=== PATIENT | female | born 1950 | race Caucasian/White ===

== ENCOUNTER 2023-11-07 10:31 | Outpatient (OUT) | payer MEDICARE, SELFPAY ==
--- NOTE | 2023-11-07 10:41 | VEIN_ITS ---
Patient Name: KRISTY MORELOS MR#: [id number] : 1950 Exam Date: 11/07/2023 Ordering Doctor: DR AVIVA RUSHING M.D. RADIOLOGY REPORT PROCEDURE: [facility] - OFFICE VISIT INITIAL COMPARISON: None. PROGRESS NOTES: [age] year old female who presents with a 20 year history of discolored dilated veins with recent muscle cramping, dilated bulging veins, aching. The patient's leg symptoms are symmetric bilaterally. There has been a progression of symptoms recently. This increases with prolonged leg dependency. The patient describes an improvement with rest and elevation. The patient denies any signs and symptoms to suggest arterial ischemia. The patient describes a family history of varicose veins in mother, sister, and brother. The patient has drinking and smoking history of : Occasional alcohol consumption; no tobacco use. Patient has a past medical history significant for peripheral neuropathy. The patient denies a history of deep venous thrombus or pulmonary embolus. See separate history and physical for medication list. No prior treatment for varicose or spider veins. Prior treatment included use of compression stockings. After review of nurse notes, history and physical exam I discussed at length the pathophysiology of venous hypertension and possible treatments, therapies and strategies available. We discussed at length the importance of elevating the lower extremities above the level of the heart, increased physical activity and compression stocking use. Ultrasound venous reflux study performed today was discussed at length with the patient. The report demonstrates mildly dilated great saphenous veins bilaterally with significant reflux. Borderline dilated right anterior accessory vein with mild reflux. Incompetent branch saphenous varicosities bilaterally predominantly rising from the great saphenous veins.. PHYSICAL EXAM: The right leg demonstrates a few varicosities, extensive reticular and spider veins, no ulceration, no edema, no skin discoloration. The left leg demonstrates a few varicosities, extensive reticular and spider veins, no ulceration, no edema, no skin discoloration. Both thighs, legs and feet were symmetrically warm to the touch. Good posterior tibial and dorsalis pedis pulses were present bilaterally. VEIN/[facility] EST Comprehensive IMPRESSION: 1. Bilateral lower extremity venous insufficiency 2. Bilateral lower extremity varicose veins 3. No significant lower extremity subcutaneous edema 4. No flow significant arterial disease 5. CEAP: C2, EC, , [place] PLAN: 1. Continued use of compression stockings 2. Elevated legs and increased physical activity symptomatic relief 3. Intravenous laser ablation of right great saphenous vein and left great saphenous vein. Followed by re-evaluation of right anterior accessory saphenous vein for possible treatment. 4. Bilateral lower extremity microfoam chemical ablation of remaining incompetent branch saphenous varicosities. 5. Bilateral lower extremity sclerotherapy for extensive reticular and spider veins. Nurse notes, history and physical were reviewed and confirmed, see attached forms. The nurse was present throughout the physical exam and consultation Dictated by: Roel Montez M.D. on 11/07/2023 at 12:11 Approved by: Roel Montez M.D. on 11/07/2023 at 12:17
--- NOTE | 2023-11-07 10:41 | VEIN_ITS ---
Patient Name: KRISTY MORELOS MR#: [id number] : 1950 Exam Date: 11/07/2023 Ordering Doctor: DR AVIVA RUSHING M.D. RADIOLOGY REPORT PROCEDURE: VC EXT VENOUS REFLUX [facility]IALU[facility] LMTD COMPARISON: None. INDICATIONS: I83.813 Pain due to varicose veins of bilateral legs TECHNIQUE: Duplex imaging of the lower extremity to assess the deep and superficial venous system for the presence of deep or superficial venous incompetence and to document the location and severity of disease. The study includes evaluation of the great saphenous vein (GSV), anterior accessory saphenous vein (AASV) and small saphenous vein (SSV). Patient scanned in reverse Trendelenburg and standing. 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 Compressibility: Non compressible segment of prox SSV. Flow: Severe deep venous reflux. Preforator: Mid medial calf 3.2 mm with 0.8s reflux. Prox medial calf 3.6 mm with 2.5s reflux. Tech Note: Incompetent varicose vein distal medial thigh off of GSV measures 7.6 mm with 4.8s reflux. Varicose vein proximal medial lower leg measures 4.9 mm with 2.6s reflux. LEFT LOWER EXTREMITY: Saphenofemoral Junction Reflux: Yes 9.0 mm 1.4 sec GSV: Diam (mm) Reflux/Time (sec) Proximal Thigh 6.1 Yes 1.0 Mid Thigh 4.5 Yes 0.3 Distal Thigh 3.8 Yes 1.9 Prox Calf 2.1 Yes 4.6 Mid Calf 2.7 Yes 2.0 Saphenopopliteal Junction Relux: 5.6 mm Yes 0.6 SSV: Proximal Calf 4.2 Yes 0.7 Mid Calf 2.6 Yes 2.5 AASV: Proximal Thigh 4.3 Yes 1.2 Mid Thigh 2.3 Yes 0.3 Distal Thigh Thrombi: Chronic thrombus noted mid to distal SSV. Compressibility: Non compressible segment in SSV. Flow: Mild deep venous reflux. Extractions Technician: Mid medial lower leg 5.3 mm with 1.0s reflux. Proximal medial lower leg measures 4.0 mm with 1.7s reflux. Tech Note: Incompetent varicose vein distal medial thigh measures 4.8 mm with 1.2s reflux. Varicose vein mid medial lower leg 4.0 mm with 1.5s reflux. CONCLUSION: 1. Abnormally dilated and markedly incompetent great saphenous veins bilaterally. 2. Borderline dilated and mildly incompetent right anterior accessory saphenous vein. 3. Bilateral dilated incompetent branch saphenous varicosities predominately rising from the great saphenous veins. Dictated by: Roel Montez M.D. on 11/07/2023 at 11:51 Approved by: Roel Montez M.D. on 11/07/2023 at 12:11
== END 2023-11-07 10:32 | disposition home or self-care (01) ==
PROVIDERS: PCP Radiology Diagnostic Radiology; Visit Provider Radiology Diagnostic Radiology
DX: I83.813 Varicose veins of bilateral lower extremities with pain (principal)
CPT/HCPCS: 93970; G0463

== ENCOUNTER 2023-11-27 11:29 | Outpatient (OUT) | payer MEDICARE, SELFPAY ==
--- NOTE | 2023-11-27 | MM_ITS ---
Patient Name: KRISTY MORELOS MR#: [id number] : 1950 Exam Date: 11/27/2023 Ordering Doctor: DR DAVID ELDRIDGE RADIOLOGY REPORT PROCEDURE: MM TOMOSYNTHESIS SCREENING BI COMPARISON: MG MAMM [facility] SCRN W CAD DIG, 08/31/2015. MG MAMM [facility] SCRN W CAD DIG, 02/27/2013. MAMMO MAR[facility]ISA SCREEN, 02/21/2010. MG MAMM SCREEN [facility] W CAD, 02/14/2018. INDICATIONS: Screening mammogram for malignant neoplasm of breast, Z12.31 Calculator Name NCI Breast Cancer Risk Assessment Tool 5 Year Breast Cancer Risk 1.80% Lifetime Breast Cancer Risk 3.90% Personal Breast Cancer No Personal Ovarian Cancer No Treatments None Family Cancers Brother with prostate cancer at age 73. LOCATION: [facility] BREAST COMPOSITION: The breasts are heterogeneously dense,which may obscure small masses. FINDINGS: DIAGNOSTIC CATEGORY 0--INCOMPLETE: NEED ADDITIONAL IMAGING EVALUATION. RIGHT BREAST: No significant suspicious finding. Scattered benign-appearing calcifications are present. No significant change has occurred. LEFT BREAST: Within the lower-outer quadrant posterior breast is a suspected 1.0 cm mass and a suspected adjacent 6 mm mass. Spot magnification views and ultrasound evaluation recommended. RECOMMENDATIONS: ADDITIONAL MAMMOGRAPHIC VIEWS REQUIRED: LEFT BREAST - LEFT CRANIOCAUDAL SPOT MAGNIFICATION VIEW - LEFT OBLIQUE SPOT MAGNIFICATION VIEW - ULTRASOUND: LEFT BREAST PLEASE NOTE: A NORMAL MAMMOGRAM DOES NOT EXCLUDE THE POSSIBILITY OF BREAST CANCER. A CLINICALLY SUSPICIOUS PALPABLE LUMP SHOULD BE BIOPSIED. Dictated by: Roel Montez M.D. on 12/04/2023 at 11:06 Approved by: Roel Montez M.D. on 12/04/2023 at 11:13
--- OUTSIDE RECORDS SUMMARY | 2023-11-27 11:46 | XMS_ITS | CCD ---
Author Organization [facility] Inform ion Partnership [facility] Care Team Providers Care Ring Striker Name Role Phone Park Carias Unavailable Unavailable Primary Care Provider GRACIE Damian Attending Unavailable JOHN QUIROZ Attending Unavailable Allergies Allergy Classification Reported Allergen(s) Allergy Type Date of Onset Reaction(s) Facility (3 sources) Naproxen Drug Allergy 01-16-2012 [facility] Other Medications Current Medications Medication Drug Class(es) Dates Sig (Normalized) Sig (Original) amoxicillin 875 mg / clavulanate 125 mg oral tablet (1 source) Penicillin-class Antibacterial Start: 05-09-2023 take 1 tablet by mouth every twelve hours Amoxicillin-Pot Clavulanate 875-125 MG 1 tablet Orally every 12 hrs for 10 day(s) May, Active bimatoprost 0.1 mg/ml ophthalmic solution (3 sources) Prostaglandin Analog Lumigan 0.0 1 % ophthalmic solution 1 (one) time each day at the same time 0 Active take 1 drop(s) into the eye(s) once daily in the evening Lumigan 0.01 % 1 drop into affected eye in the evening Ophthalmic Once a day Active fluticasone propionate 0.05 mg/actuat metered dose nasal spray (1 source) Corticosteroid Start: 05-09-2023 take 2 spray(s) nasal route once daily Fluticasone Propionate 50 MCG/ACT 2 sprays Nasally Once a day for 14 day(s) May, Active methylPREDNISolone 4 mg oral tablet (1 source) Corticosteroid Start: 05-09-2023 Medrol 4 MG as directed Orally As Directed for 6 days May, Active 12 hr timolol 5 mg/ml ophthalmic solution (3 sources) beta-Adrenergic Mary timolol (Timoptic) 0.5 % ophthalmic solution timolol maleate 0.5 % eye drops 0 Active take 1 drop(s) into the eye(s) once daily Timolol Maleate 0.25 % 1 drop into affec ameya eye Ophthalmic Once a day Active Completed/Discontinued Medications Medication Drug Class(es) Dates Sig (Normalized) Sig (Original) Cetirizine (1 source) Histamine-1 Receptor Antagonist ZyrTEC Allergy Not-Taking pantoprazole (1 source) Proton Pump Inhibitor Pantoprazo le Sodium Not-Taking Triamcinolone (1 source) Corticosteroid Triamcinolone Ac etonide Not-Taking Problems Problem Classification Problem Date Documented Da te Episodic/Chronic Other and unspecified benign neoplasm (1 source) Hemangioma; Translations: [Hemangioma of unspecified site] Episodic Other and unspecified benign neoplasm (2 sources) Melanocytic nevus of trunk; Translations: [Melanocytic nevi of trunk] 07-13-2023 Episodic Other gastrointestinal disorders (1 source) Ascites; Translations: [Other ascites] Episodic Other liver diseases (1 source) Liver cyst; Translations: [Other specified diseases of liver] Chronic Other lower respiratory disease (1 source) Cough; Translations: [Cough] Episodic Other screening for suspected conditions (not mental disorders or infectious disease) (1 source) Computed tomography result abnormal; Translations: [Abnormal CT scan] Chronic Other skin disorders (2 sources) Seborrheic keratosis; Translations: [Other seborrheic keratosis] 07-13-2023 Episodic Other skin disorders (2 sources) Actinic keratosis; Translations: [Actinic keratosis] 07-13-2023 Episodic Other skin disorders (2 sources) Inflamed seborrheic keratosis; Translations: [Inflamed seborrheic keratosis] 07-13-2023 Episodic Other upper respiratory infections (1 source) Acute sinusitis, unspecified Episodic Results Test Name Value Interpretation Reference Range Facility No Panel Informationon 07-13 [facility] ALL[facility] HEALTHon 11-21-2019 ALLIED HEALTH HNO ID: [id number] Author: Ema Ferrer (Chaplain) Service: Healing Service Author Type: Type: Allied Health Filed: 11/21/2019 7:57 AM Note Text: SPIRITUAL CARE Spiritual Care Visit Record Name: Betina Morelos Date: November 21, 2019 Type of Visit: Preoperative Prayer/Visit Visit was with (pt, dtr). Ministry Provided During Visit: Spiritual Presence / Support Notes: I introduced self. Pt is [employer]ology. I gave her a blessing. Pt thanked for visit. Referrals: No referral made Will See: As Needed Only Follow-up Notes: Informed patient and family of Fabric Worker Leader availability Fabric Worker Leader Signature: Ema Ferrer Fabric Worker Leader Student To contact the Spiritual Care Department: Please call [phone] or Page the On-Call Fabric Worker Leader at pager [phone] Thank you for the opportunity to be of service. This is an electronically created document. IF PRINTED, PLEASE DO NOT REMOVE FROM THE CHART OR MODIFY PRINTED COPY. [facility] ANES Nerissa 11-21-2019 ANES POST HNO ID: [id number] Author: Aimee Quintero I Service: Anesthesiology Author Type: Anesthesiologist Type: Anesthesia PostOp Filed: 11/21/2019 12:19 PM Note Text: POST ANESTHESIA EVALUATION NOTE SERVICE DATE: 11/21/2019 SERVICE TIME: 12:19 PM : 1950 Vitals: 11/21/19 1045 11/21/19 1100 11/21/19 1115 11/21/19 1130 BP: 124/58 132/65 128/66 127/67 Pulse: 62 65 61 70 Resp: 17 16 17 16 Temp: TempSrc: SpO2: 94% 94% 95% 97% Validated Vital Signs: Yes No apparent anesthetic complications. The patient is appropriately hydrated with stable respiratory and cardiovascular status. Patient has safe and adequate airway control. The patient has appropriate pain relief and no significant post operative nausea or vomiting. The patient has achieved baseline mental status. Further assessment by Anesthesia Service: None Other Remarks: SIGNATURE: Aimee Quintero MD PATIENT NAME: Betina Morelos DATE: November 21, 2019 TIME: 12:19 PM PAGER/CONTACT #: [facility]IONAL ANESTHESIOLOGY POST ANESTHESIA NOTE PATIENT NAME: Betina Morelos Vitals: 11/21/19 1045 11/21/19 1100 11/21/19 1115 11/21/19 1130 BP: 124/58 132/65 128/66 127/67 Pulse: 62 65 61 70 Resp: 17 16 17 16 Temp: TempSrc: SpO2: 94% 94% 95% 97% No apparent anesthetic complications. The patient is appropriately hydrated with stable respiratory and cardiovascular status. Patient has safe and adequate airway control. The patient has appropriate pain relief and no significant post operative nausea or vomiting. The patient has achieved baseline mental status. Further assessment by Anesthesia Service: None Other remarks: None SIGNATURE: Aimee Quintero MD DATE: November 21, 2019 TIME: 12:19 PM [facility] ANES PREOPon 11-21-2019 ANES PREOP HNO ID: [id number] Author: Aimee Quintero I Service: Anesthesiology Author Type: Anesthesiologist Type: Anesthesia PreOp Filed: 11/21/2019 7:18 AM Note Text: REGIONAL ANESTHESIOLOGY DAY OF SURGERY NOTE PATIENT NAME: Betina Morelos Procedure(s) (LRB): MARSUPIALIZATION OF CYST / ABSCESS OF LIVER (N/A) Surgeon(s): Allison Oro Vitals: 11/21/19 0657 BP: 181/80 Pulse: 69 Resp: 18 Temp: 36.7 ?C (98.1 ?F) TempSrc: Oral SpO2: 97% ACTIVE PROBLEM LIST Actinic Keratosis Other Seborrheic Keratosis Other and Unspecified Malignant Neoplasm of Skin of Other and Unspecified Parts of Face SEBORRHEIC KERATOSIS INFLAMED x8 Dyschromia Acute Dermatitis due to Solar Radiation x2 Acne Verruca Personal History of Other Malignant Neoplasm of Skin Other Chronic Dermatitis Due to Solar Radiation Skin Exam for Malignant Neoplasm Seborrheic Keratosis Other Plastic Surgery for Unacceptable Cosmetic Appearance Neoplasm of Uncertain Behavior of Skin Hemangioma of Skin Liver Cyst Hyperlipidemia Chronic Cough Glaucoma PAST MEDICAL HISTORY Diagnosis Date - Chronic cough - Glaucoma - Hyperlipidemia - Liver cyst - Nasal polyp - Other malignant neoplasm of other specified sites of 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 Current Outpatient Medications on File Prior to Encounter Medication Sig - vit A-vit C-vit I-dpbc-rtozyt (EYE VITAMIN AND MINERALS) 7,160-113-100 wxxs-jj-dmuh tab Eye Vitamin and Minerals - timolol maleate (TIMOPTIC) 0.5 % ophthalmic solution timolol maleate 0.5 % eye drops - pantoprazole DR (PROTONIX) 40 mg tablet pantoprazole 40 mg tablet,delayed release Take 1 tablet every day by oral route. - cetirizine (ZYRTEC) 10 mg tablet q 24 HR. - Bimatoprost (LUMIGAN) 0.01 % OPHTHALMIC Drop 1 Drop. Current Facility-Administered Medications Medication Dose Route Frequency Provider Last Rate Last Dose - lidocaine 10 mg/mL (1 %) 1-2 mg injection (XYLOCAINE) 0.1-0.2 mL INTRADERMAL PRN Shae (Res) Marlyn - lactated ringers infusion 5-30 mL/hr INTRAVENOUS CONTINUOUS Shae (Res) Marlyn 30 mL/hr at 11/21/19 0630 30 mL/hr at 11/21/19 0630 - heparin 5,000 Units injection 5,000 Units SUBCUTANEOUS Pre-Op Once Shae (Res) Marlyn - piperacillin-tazobacta m iv piggyback 3.375 g in dextrose (iso-osmotic) 50 mL (ZOSYN) 3.375 g INTRAVENOUS ONCE Shae (Res) Marlyn - fluconazole iv piggyback 200 mg in NaCl (iso-osmotic) 100 mL (DIFLUCAN) 200 mg INTRAVENOUS ONCE Shae (Res) Marlyn - NaCl 0.9% 2-10 mL 2-10 mL INTRAVENOUS q 12 H Allison Oro Allergies: ALLERGIES Allergen Reactions - Aleve [Naproxen Sod* Hives No results found for: HB, HCT, WBC, PLT CMP: No results found for this basename: GLUC,BUN,CREAT,NA,K,CH PIPPA,CO2,TPROT,ALB,CA,A LKPHOS,TBILI,AST,ALT No results found for: INR Adequate NPO status: Yes Anesthetic risks, benefits, alternatives, personnel and consent discussed: Yes Patient agrees to proceed: Yes Previous Anesthesia: No history of adverse event. Airway Assessment: MP 2; Neck ROM: Full ROM without neurologic symptoms; Airway Evaluation: No significant abnormalities Dentition: Teeth intact Symptoms of Sleep Apnea: N/A Blood Products: Not anticipated for this procedure but patient agrees to proceed. Anesthetic Plan: General; Standard ASA Monitors, art line Pain Management Plan: Parenteral or Oral ASA Class: 3 Other Medical Problems: None Chronic Beta Mary medication administered within 24 hours: N/A I have interviewed and examined the patient. I have reviewed the medical record and/or the pre-anesthesia evaluation, pertinent labs, and test results. Significant changes in the patient's condition since the History and Physical, not otherwise documented in primary service progress notes: No This contains updated information obtained within 48 hours of Surgery/Procedure. SIGNATURE: Aimee Quintero MD DATE: November 21, 2019 TIME: 7:02 AM Normal CYTOLOGYon 11-21-2019 CYTOLOGY Specimen originated from Specimen #: [id number] Submitting Physician: ALLISON ORO SPECIMEN SUBMITTED A: LIVER CYST FLUID, FINE NEEDLE ASPIRATE B: ABDOMINAL FLUID (THINPREP AND CELL BLOCK) _ FINAL DIAGNOSIS A. LIVER CYST FLUID, FINE NEEDLE ASPIRATE Negative for malignant cells. Cyst contents. B. ABDOMINAL FLUID (THINPREP AND CELL BLOCK) Negative for malignant cells. Chronic inflammation. Cristina Feliz M.D. (Electronic Signature) _ CLINICAL DATA Liver cyst GROSS DESCRIPTION A. LIVER CYST FLUID, FINE NEEDLE ASPIRATE: Received 65-cc clear yellow fluid B. ABDOMINAL FLUID (THINPREP AND CELL BLOCK): Received 35-cc cloudy red fluid STAINS A: LIVER CYST FLUID, FINE NEEDLE ASPIRATE THIN PREP Non-Dyslexia Teacher B: ABDOMINAL FLUID (THINPREP AND CELL BLOCK) THIN PREP Non-Dyslexia Teacher, CELL BLOCK, H&E, Initial Date of Report: 11/21/2019 Date of Procedure: 11/21/2019 Date of Receipt: 11/21/2019 Submitted by: ALLISON ORO Location: [facility] Diagnostic interpretation performed at , [address] [place] [address], [place] [address]. CLIA Number: [id number] [facility] HISTORY PHYSICALon 0 HISTORY PHYSICAL HNO ID: [id number] Author: Allison Oro Service: General Surgery Author Type: Physician Type: HANDP Filed: 11/21/2019 7:15 AM Note Text: UPDATED HISTORY AND PHYSICAL EXAMINATION SERVICE DATE: 11/21/2019 SERVICE TIME: 7:13 AM PHYSICAL EXAM MUST BE COMPLETED ON ADMISSION The History and Physical (completed in the past 30 days) has been reviewed and the patient has been examined. The contents accurately reflect the patient's condition with the following additions or revisions since the HANDP was completed. Examination indicates no changes. This HANDP can be found in the Electronic Medical Record dated 11/17/2019. As a result of the 08/19/19 order by [facility] of Health Director Darling Espino M.D. to cancel non-essential surgeries that would use PPE, unless special criteria are met, I have reviewed the clinical record for this patient and have determined that the scheduled procedure meets the criteria to go forward because there is a presence of severe symptoms causing an inability to perform activities of daily living. SIGNATURE: Allison Oro MD PATIENT NAME: Betina Morelos DATE: November 21, 2019 TIME: 7:13 AM PAGER:[phone] [facility] NURSING PROGon 11-21-2019 NURSING PROG HNO ID: [id number] Author: Yomaira DuranRn) KAILYN Montano Service: ? Author Type: Registered Nurse Type: Nursing Progress Note Filed: 11/21/2019 3:17 PM Note Text: Nursing Progress Note Patient Name: Betina Morelos Patient Location: [facility] OR POOL/[facility] SUR[facility] OR POOL __ 1410 Discharge criteria met, patient states pain is tolerable, dressings to surgical sites dry and intact, no drainage noted, IV discontinued, VSS. 1515 Patient discharged home with tolerable pain level and in no distress, all belongings and discharge instructions sent with patient. This note was completed by: Yomaira Montano RN [facility] NURSING PROG HNO ID: [id number] Author: Zarina (Rn) KAILYN Brownlee Service: ? Author Type: Registered Nurse Type: Nursing Progress Note Filed: 11/21/2019 11:53 AM Note Text: Nursing Progress Note Patient Name: Betina Morelos Patient Location: [facility] OR POOL/[facility] OR POOL __ Daily Note: patient arrived into PACU, agitated and restless. Medicated by OR staff prior to arrival. Respirations easy on SFM. Port sites to abdomen with cover dressings, no drainage noted. 1030 patient more awake at this time and alert and oriented. 1100 Dr. Martin at the bedside speaking with patient. He gave ok for patient to be discharged when she meets criteria for Phase 2. This note was completed by: Hernan Brownlee RN [facility] OPERATIVE NOon 11-21-2019 OPERATIVE NO HNO ID: [id number] Author: Allison Oro Service: General Surgery Author Type: Physician Type: Operative Report Filed: 11/24/2019 10:33 AM Note Text: [facility] [employer] - Operative Report BETINA MORELOS : 1950 AGE: 69. SEX: F PATIENT TYPE: I HOSP SVC: GENS LOCATION: [facility] ATTENDING PHYSICIAN: Allison Oro MD CSN NUMBER: [id number] DATE OF SURGERY/PROCEDURE: 11/21/2019 INCISION/PROCEDURE START TIME: 7:55 am INCISION CLOSE/PROCEDURE END TIME: 8:59 am PREOPERATIVE DIAGNOSIS: Symptomatic right lobe liver cyst. POSTOPERATIVE DIAGNOSIS: Symptomatic right lobe liver cyst. SURGEON: Allison Oro MD SUPERVISOR ADVICE: No Additional Staff SURGERY/PROCEDURE: Laparoscopy and cyst fenestration of right lobe liver cyst. ANESTHESIA: General. SPECIMENS: Liver cyst wall and liver cyst fluid for cytology and culture, and abdominal fluid for cytology. 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 Over the years, she has become more symptomatic, now undergoes laparoscopy for treatment of her symptomatic right lobe cyst. DESCRIPTION OF PROCEDURE: The patient was brought into the operating room, placed in a supine position on the operating room table. General endotracheal anesthesia was induced. IV antibiotics were given. She was subsequently prepped and draped using normal sterile technique. Incision was made below the umbilicus. Skin and subcutaneous tissue were dissected down to the level of rectus fascia, which was incised in the midline. 0 Vicryl sutures were placed through the fascia on either side and a Jose port placed into the abdominal cavity. The abdominal cavity was then insufflated to 12 mmHg of pressure and a 5 mm flexible scope was inserted into the abdominal cavity. Two other 5 mm ports were then placed, 1 in the midclavicular line 2 fingerbreadths below the plane of the umbilicus and the other 1 just right of midline above the xiphoid. Care was moved to the right midclavicular port site and then utilizing the 2 medial port sites, the liver was evaluated first with ultrasound demonstrating a large cyst of the right lobe. Utilizing Sonicision, the cyst was opened and the anterior wall of the cyst was circumferentially dissected off the liver. This was sent for Pathology. On entering the cyst, fluid was sent of the cyst cavity for cytology and culture. Prior to opening the cyst, there was some fluid just lateral to the liver, which was also aspirated and sent for cytology. Once the anterior wall of the cyst was completely excised, 2 other small cysts, one in segment 4A and one in segment 4B were also opened and drained and thus the remaining part of the cyst in the right lobe was then cauterized with argon beam coagulation. The abdominal cavity was then desufflated. Approximately 4 L of fluid was drained from the cyst in total. Ports were all removed. There was no evidence of any bleeding. Sponge and needle counts were correct. There were no intraoperative complications. The fascial incision at the umbilicus was closed with 0 Vicryl suture. The skin sites were all closed with a 4-0 Vicryl subcuticular stitch. Steri-Strips and dressings were applied. Sponge and needle counts were correct. There were no intraoperative complications. I was present for the entire procedure, performed and supervised all the critical portions of the operation. Allison Oro MD CTS:[id number] /[id number] cc: [facility] PROGRESSon 11-21-2019 PROGRESS HNO ID: [id number] Author: Allison Oro Service: General Surgery Author Type: Physician Type: Progress Notes Filed: 11/21/2019 7:35 AM Note Text: labs from Jul 2019 Na 140 K 4.5 anthropology instructor 0.76 Alt 7 Ast 15 T Bili 1.2 WBC 5.3 Hgb 13.7 Hct 43.3 Plt 205 [facility] PT EDon 11-21-2019 PT ED HNO ID: [id number] Author: Yomaira (Rn) KAILYN Montano Service: ? Author Type: Registered Nurse Type: Patient Education Filed: 11/21/2019 2:16 PM Note Text: PATIENT EDUCATION TOPIC: PROCEDURE / SURGERY: Procedure/Surgery: PATIENT NAME: Betina Morelos PATIENT LOCATION: [facility] OR POOL/[facility] * READINESS TO LEARN COGNITIVE ABILITY: Alert and oriented MOTIVATION TO LEARN: Eager FAMILY SUPPORT: High - Very involved in pt care INSTRUCTION PROVIDED TO: Patient and family member PATIENT LEARNS BEST BY: Individual Instruction FACTORS AFFECTING LEARNING: None PHYSICAL LIMITATIONS AFFECTING LEARNING: None LEARNING RESPONSE DIAGNOSIS: ADULT: Drainage of liver cysts PATIENT/FAMILY RESPONSE: Verbalizes understanding of: POST-OPERATIVE INSTRUCTIONS-Correct actions to take to reduce postoperative complications METHOD OF INSTRUCTION: Individual instruction FOLLOW-UP PLAN: Complete - No need for follow-up INSTRUCTIONAL AIDS USED: NA SUPPLEMENTAL MATERIAL PROVIDED TO PATIENT: None REFERRAL (RECOMMENDATION): None Electronically Signed By: Yomaira Montano RN [facility] SURGICAL PATHOLOGYon 020 SURGICAL PATHOLOGY Specimen originated from Specimen #: [id number] Submitting Physician: ALLISON ORO FINAL DIAGNOSIS Liver cyst wall, excision (A) - Simple biliary-type cyst with associated fibrosis. . [facility] 11/26/2019 Shawn Hutchinson M.D., Ph.D. (Electronic Signature) _ SPECIMEN SUBMITTED A: LIVER CYST WALL CLINICAL DATA LIVER CYST GROSS DESCRIPTION A. Received in formalin labeled liver cyst wall is an 18.2 gram, 5.7 x 4.8 x 4.2 cm segment of pelayo-pink irregular cauterized fibromembranous soft tissue. The specimen is consistent with a ruptured cyst. the cyst lining is unremarkable measuring 1-2 mm in thickness. No excrescences or papillations are identified. [employer] Converter Blower sections are submitted in seven cassettes. LINA/carmen 11/21/2019 Gross examination performed at , [address] [place] [address] Date of Report: 11/27/2019 Date of Procedure: 11/21/2019 Date of Receipt: 11/21/2019 Submitted by: ALLISON ORO Location: [facility] Diagnostic interpretation performed at [place] [address]. CLIA Number: [id number] [facility] Wound Culture/Stainon 2019 Wound Culture/Stain Sp. Request/Comment: - Eswab Smear Result - No organisms seen No Polymorphonuclear Leukocytes Culture Result - No growth 3 days [facility] Comment on above: Performed By: #### W CUL ####[facility] [id number] [place], [place] [id number] Wound Culture/Stain Sp. Request/Comment: - Eswab Smear Result - No organisms seen No Polymorphonuclear Leukocytes Culture Result - No growth 3 days [facility] Comment on above: Performed By: #### W CUL ####[facility] [place], [place] [phone] Confirm Blood Typeon 020 ABO/RH(D) Positive [facility] [id number] 11-18-2019 ECG01 NAME : RUPAL MORELOS PID : [id number] : 1950 Gender : Female Race : ORD : [id number] Procedure Date : Nov 18 2019 13:19:19 Edit Date : Nov 19 2019 09:34:37 Diagnosis:NORMAL SINUS RHYTHM CANNOT RULE OUT INFERIOR INFARCT , AGE UNDETERMINED CANNOT RULE OUT ANTERIOR INFARCT , AGE UNDETERMINED ABNORMAL ECG NO PREVIOUS ECGS AVAILABLE Confirmed by DARON NAVARRO M.D. ([id number]) on 11/19/2019 9:34:36 AM Ventricular Rate : 64 BPM Atrial Rate : 64 BPM P-R Interval : 136 ms QRS Duration : 70 ms Q-T Interval : 400 ms QTC Calculation(Bazett) : 412 ms P [place] : -2 degrees R [place] : 51 degrees T [place] : -1 degrees Test Reason : Location : : [facility] Overread By : DARON NAVARRO M.D. Edited By : DARON NAVARRO M.D. Referred By : BARBIE BURTON Acquired by : AMIRA WALLACE [facility] HOSPon 09-18-2019 HOSP Patient:Pola Morelos ee n M MRN: Height:5' 6.5 [patient reported[(1.689 m) Weight:152 lb (68.947 kg) Outpatient Medications as of 11/21/19: vit A-vit C-vit Z-okaf-oiiqtp (EYE VITAMIN AND MINERALS) 7,160-113-100 aids-wm-mfbe tab timolol maleate (TIMOPTIC) 0.5 % ophthalmic solution pantoprazole DR (PROTONIX) 40 mg tablet cetirizine (ZYRTEC) 10 mg tablet Bimatoprost (LUMIGAN) 0.01 % OPHTHALMIC Drop Admission/Clinic Administered Medications as of 11/21/19: lidocaine 10 mg/mL (1 %) 1-2 mg injection (XYLOCAINE) lactated ringers infusion heparin 5,000 Units injection piperacillin-tazobacta m iv piggyback 3.375 g in dextrose (iso-osmotic) 50 mL (ZOSYN) NaCl 0.9% 2-10 mL Problem List: Actinic keratosis [L57.0] Other seborrheic keratosis [L82.1] Other and unspecified malignant neoplasm of skin of other and unspecified parts of face [173.3] SEBORRHEIC KERATOSIS INFLAMED x8 [L82.0] Dyschromia [L81.9] Acute Dermatitis due to Solar Radiation x2 [L56.8] Acne [L70.9] Verruca [B07.8] Personal history of other malignant neoplasm of skin [Z85.828] Other chronic dermatitis due to solar radiation [L57.8] Skin exam for malignant neoplasm [Z12.83] Seborrheic keratosis [L82.1] Other plastic surgery for unacceptable cosmetic appearance [Z41.1] Neoplasm of uncertain behavior of skin [D48.5] Hemangioma of skin [D18.01] Liver cyst [K76.89] Hyperlipidemia [E78.5] Chronic cough [R05] Glaucoma [H40.9] Allergies: Aleve [Naproxen Sodium] Date Verified: 11/21/19 Lab Values No results within the last 30 days for the following basenames: K,HCT No progress notes entered within the past 30 days [facility] Reminderson 04-15-2019 Reminders - From: Aurora Medina CMA To: [facility] - Reminders/Recalls; Sent: 12/04/2018 12:26:41 EDT Show up: 03/04/2019 12:26:00 EDT Subject: 2018 RECALL Due Date/Time: 04/20/2019 12:26:00 EST Reminder/Recall Colonoscopy recall [address] Azevedo Due 04/20/19 First Recall Letter Sent Clp Second Recall Letter Normal [facility] Vital Signs Date Time Vital Sign Value Performing Clinician Facility 05-09-2023 12:40-0500 Body height 165.1 cm [facility] Other Differential Other 05-09-2023 12:40-0500 Body mass index (BMI) [Ratio] 22.46 kg/m2 [facility] Other Differential Other 05-09-2023 12:40-0500 Body temperature 98 [degF] [facility] Other Differential Other 05-09-2023 12:40-0500 Body weight 61.24 kg [facility] Other Differential Other 05-09-2023 12:40-0500 Diastolic blood pressure 65 mm[Hg] [facility] Other Differential Other 05-09-2023 12:40-0500 Respiratory rate 18 /min [facility] Other Differential Other 05-09-2023 12:40-0500 SaO2% (BldA) [Mass fraction] 98 % [facility] Other Differential Other 05-09-2023 12:40-0500 Systolic blood pressure 133 mm[Hg] [facility] Other Differential Other Encounters Encounter Date Encounter Type Care Provider Facility Start: 10-18-2023 End: 10-18-2023 ambulatory JOHN QUIROZ Not Available Start: 07-13-2023 Cirqleheet Gracie stern PA Work Phone: [facility] Start: 07-13-2023 Bamboo flowsheet Gracie LARIOS Work Phone: [facility] Start: 07-13-2023 End: 07-13-2023 ambulatory GRACIE LUNA Not Available Start: 07-13-2023 End: 07-13-2023 Office outpatient visit 15 minutes Gracie LARIOS Work Phone: [facility] Comment on above: Melanocytic nevus of trunk (Primary Dx); Seborrheic keratosis; Actinic keratosis; Inflamed seborrheic keratosis Start: 05-09-2023 End: 05-09-2023 ambulatory [facility] Other Differential Other Start: 05-09-2023 Office outpatient ne w 20 minutes [facility] Procedures Date Procedure Procedure Detail Performing Clinician Start: 07-13-2023 End: 07-13-2023 CRYOTHERAPY SKIN LESION Gracei LARIOS Work Phone: Start: 11-18-2019 Antibody screen Plan of Treatment Date Care Activity Detail Author Start: 07-14-2024 End: 07-14-2024 Patient encounter procedure 07/14/2024 10:50 AM EST Office Visit [facility] [address] [place] [address] Gracie Luna PA [address] [place], [place] [id number] [facility] Start: 07-13-2023 End: 07-13-2023 Patient encounter procedure 07/13/2023 11:50 AM EST Office Visit [facility] [address] [place] [address] Gracie Luna PA [address] [place], [place] [id number] Arrived [facility] Comment on above: Arrived Start: 02-02-2023 Influenza vaccination Influenza Vacc ine (#1) [facility] Start: 2013 Pneumococcal Vaccine : 65+ Years (1 - PCV) Pneumococcal Vaccine: 65+ Years (1 - PCV) [facility] Start: 1950 Screening for malign ant neoplasm of colon [facility] Payers Date Payer Category Payer Private Health Insurance [employer] [id number] 2020-Present [address] [place] [address] Supplement [id number] 2020 Unknown [id number] 2013 Medicare [id number] 2013 Medicare MEDICARE MEDICAR E PART B [id number] 2013-Present [address] [address] [place] [address] Medicare [id number] 1948 Unknown [id number] 1950 Unknown [id number] Social History Date Type Detail Facility Unknown if ever smoked [facility] Other Start: 07-13-2023 Sex Assigned At N [facility] Other Tobacco smoking status NDIS Tobacco smoking consumption unknown [facility] Start: 1950 Sex Assigned At Female [facility] Start: 07-12-2023 Gender identity Identifies as female gender (finding) [facility] Start: 07-13-2023 Tobacco smoking status NDIS Never smoked tobacco [facility] Start: 07-13-2023 Tobacco use and exposure Smokeless tobacco non-user [facility] Start: 07-13-2023 History of Social function [facility] History of Present illness Narrative 07-13-2023 HARRIET Altamirano - 07/13/2023 11:50 AM EST Note Date & Type Note Facility 07-13-2023 History of Presen t illness Narrative Skin Check Location: Patient requests a full body skin examination Dermatologic history: history of Actinic Keratosis, history of Basal Cell Carcinoma, history of Squamous Cell Carcinoma Last visit: 1 year ago Established patient Lesion(s) Location: right cheek Duration: months Quality: denies pain, denies itch, denies bleeding Modifying factors: aggravated by picking Associated symptoms: rough Treatments: none All pertinent medical history, medications, and allergies were reviewed. General Exam: alert , oriented to person, place, and time , normal affect, well appearing Unaccompanied Scalp, Examined Right leg Examined Head, Face Examined Left leg Examined Neck Examined Right foot Examined Chest Examined Left foot Examined Back Examined Buttocks Examined Abdomen Examined Digits,nails: Examined Right arm Examined Patient wearing nail persian, Denies dark streaks on toenails Left arm Examined Lymphatics: Not examined Hands Examined 1. Melanocytic nevus of trunk Scattered benign appearing, regular brown to light brown melanocytic papules and macules with similar morphology Counseled regarding these benign growths. Rarely, a nevus can develop into malignant melanoma, so any changing nevi should be promptly re-evaluated. 2. Seborrheic keratosis Stuck on verrucous, variably pigmented papules and plaques. Patient was counseled regarding these benign growths. Removal is normally not necessary, but they may be removed if they are symptomatic or for cosmetic reasons. 3. Actinic keratosis (3) Left Forearm - Posterior, Left Upper Cutaneous Lip, Right Eyebrow Erythematous scaly papules Patient was counseled regarding these sun-induced growths that can develop into squamous cell carcinoma if left untreated. Discussed treatment with cryotherapy. It was emphasized that any treated lesions that fail to resolve should be re-evaluated. Cryotherapy performed today; see procedure note Diagnosis: Actinic keratosis Indication: Precancerous Location: see skin exam Consent: Verbal consent was obtained and risks were discussed, including, but not limited to risks of scarring, darker or program review director pigmentary changes, recurrence, incomplete removal and infection. Method: Liquid nitrogen was used to treat the lesion(s) with two 5-10 second freeze-thaw cycles. Number of lesions treated: 3 Post-procedure instructions: Instructions were given orally and in writing. The office will be contacted if the lesion fails to resolve despite treatment, or if a side effect develops such as abnormal crusting, scabbing, redness or tenderness Cryotherapy, skin lesion - Left Forearm - Posterior, Left Upper Cutaneous Lip, Right Eyebrow 4. Inflamed seborrheic keratosis (14) Left Buccal Cheek (2), Left Eyebrow, Left Shoulder - Posterior, Left Upper Back (3), Mid Back, Right Anterior Mandible, Right Medial Canthus, Right Parotid Area (3), Right Upper Back Inflamed seborrheic keratoses: pink and brown stuck on verrucous scaly papule with surrounding erythema and bloody crust. The patient was informed that symptomatic seborrheic keratoses are benign growths that become inflamed, itchy, tender, traumatized, caught on clothing, or bleed. Symptomatic lesions can be treated with cryotherapy or curretage. Thicker lesions treated with cryotherapy may require more than one treatment. The patient was instructed to notify the office if abnormal redness or tenderness develops at the treatment site. Cryotherapy today, see procedure note. Diagnosis: Inflamed seborrheic keratosis Indication: Inflamed Consent: Verbal consent was obtained and risks were discussed, including, but not limited to risks of scarring, darker or program review director pigmentary changes, recurrence, incomplete removal and infection. Method: Liquid nitrogen was used to treat the lesion(s) with two 5-10 second freeze-thaw cycles Number of lesions treated: 14 Post-procedure instructions: Instructions were given orally and in writing. The office will be contacted if the lesion fails to resolve despite treatment, or if a side effect develops such as abnormal crusting, scabbing, redness or tenderness Cryotherapy, skin lesion - Left Buccal Cheek (2), Left Eyebrow, Left Shoulder - Posterior, Left Upper Back (3), Mid Back, Right Anterior Mandible, Right Medial Canthus, Right Parotid Area (3), Right Upper Back Next Visit: 1 year documented in this encounter [facility] Evaluation note 05-09-2023 Note Date & Type Note Facility 05-09-2023 Evaluation note Encounter Date Diagnosis Assessment Notes May, Acute sinusitis, recurrence not specified, unspecified location (ICD-10 - J01.90) Sinusitis home care material was printed, Sinusitis home care material was printed Plenty fluids, get plenty of rest. Take the amoxicillin with clavulanate and Medrol Dosepak as prescribed until gone. Take the fluticasone nasal spray as prescribed until your symptoms improve. Take Tylenol or Motrin as needed for aches pains or fevers. Follow-up with your family physician if no improvement in 2 to 3 days Differential Other Evaluation note Note Date & Type Note Facility Evaluation note Diagnosis Melanocytic nevus of trunk- Primary Benign neoplasm of skin of trunk, except scrotum Seborrheic keratosis Actinic keratosis Inflamed seborrheic keratosis documented in this encounter [facility] History general Narrative - Reported Note Date & Type Note Facility History general Narrative - Reported Type Medical History HYPERLIPIDEMIA Medical History MRI abdomen Surgical History SINUS SX 1999 Differential Other Summary Purpose Family History No Family History Records FoundNo Family History Records FoundNo Family History Records Found Advance Directives No Advanced Directives Records FoundNo Advanced Directives Records FoundNo Advanced Directives Records Found Procedure Findings Note HNO ID: [id number] Author: Eleazar Martin Service: General Surgery Author Type: Resident Type: Brief Op Note Filed: 11/21/2019 9:09 AM Note Text: GENERAL SURGERY BRIEF OPERATIVE NOTE Betina M Sina [id number] LOG ID: [id number] Surgery/Procedure Date: 11/21/2019 Incision/Procedure Start Time: 7:55 AM Incision Close/Procedure End Time: 8:59 AM Surgeon(s)/Proceduralist(s) and Physical Scientist(s): Surgeon(s) and Role: * Allison Oro - Primary * Raji Martin - Resident - Assisting Procedure(s): Procedure(s) and Anesthesia Type: * MARSUPIALIZATION OF CYST / ABSCESS OF LIVER - General Anesthesia: General Findings: Large segment 7/8 hepatic cyst, smaller segment 6 and segment 4B cysts - all defenestrated; ascites and cyst fluid sent for studies; diagnostic laparoscopy otherwise unremarkable; anterior cyst wall sent to pathology; posterior and medial/lateral cyst saucedo cauterized with argon beam Estimated Blood Loss: 3 mls Specimens: - cyst wall - cyst fluid - intraabdominal fluid/as (more content not included)... Additional Source Comments INFORMATION SOURCE (unrecogn ized section and content) DATE CREATED AUTHOR [facility] DATE CREATED AUTHOR AUTHOR'S ORGANIZ ATION 12/24/2019 [facility] DATE CREATED AUTHOR AUTHOR'S ORGANIZ ATION 10/20/2023 [facility] EPIC REASON FOR VISIT (unrecogniz ed section and content) Reason Comments Skin Check FOR RECORDS PERTAINING TO PATIENTS WHO ARE OR HAVE BEEN ENROLLED IN A CHEMICAL DEPENDENCY/SUBSTANCEABUSE PROGRAM, SOME INFORMATION MAY BE OMITTED. This clinical summary was aggregated from multiple sources. Caution should be exercised in using it in the provision of clinical care. This summary normalizes information from multiple sources, and as a consequence, information in this document may materially change the coding, format and clinical context of patient data. In addition, data may be omitted in some cases. CLINICAL DECISIONS SHOULD BE BASED ON THE PRIMARY CLINICAL RECORDS. [facility] [employer] [facility]. provides no warranty or guarantee of the accuracy or completeness of information in this document.
== END 2023-11-27 11:30 | disposition home or self-care (01) ==
LOC: MAMMO 11:30
PROVIDERS: PCP Family Medicine; Visit Provider Family Medicine
DX: Z12.31 Encounter for screening mammogram for malignant neoplasm of breast (principal); Z80.42 Family history of malignant neoplasm of prostate; N63.23 Unspecified lump in the left breast, lower outer quadrant
CPT/HCPCS: 77063; 77067

== ENCOUNTER 2023-12-12 13:49 | Outpatient (OUT) | payer MEDICARE, SELFPAY ==
--- NOTE | 2023-12-12 13:51 | MM_ITS ---
Patient Name: KRISTY MORELOS MR#: [id number] : 1950 Exam Date: 12/12/2023 Ordering Doctor: DR DAVID ELDRIDGE RADIOLOGY REPORT PROCEDURE: MM DIAGNOSTIC MAMMO UNILAT LT ULTRASOUND LEFT BREAST COMPARISON: MM TOMOSYNTHESIS SCREENING BI, 11/27/2023. INDICATIONS: Abnormal Mammogram Calculator Name NCI Breast Cancer Risk Assessment Tool 5 Year Breast Cancer Risk 1.80% Lifetime Breast Cancer Risk 3.90% Personal Breast Cancer No Personal Ovarian Cancer No Treatments None Family Cancers Brother with prostate cancer at age 73. LOCATION: [facility] BREAST COMPOSITION: The breasts are heterogeneously dense,which may obscure small masses. FINDINGS: DIAGNOSTIC CATEGORY 3--PROBABLY BENIGN FINDING. THE FOLLOWING FINDING(S) HAS A HIGH PROBABILITY OF A BENIGN ETIOLOGY: Spot compression views of the left breast demonstrate a partially visualized 1 cm area of density seen only on the CC projection. Ultrasound demonstrates at the 3 o'clock position a 1.7 x 0.30.8 cm oval well-circumscribed hypodensity, nonspecific this does not correspond in shape or size to the mammographic abnormality. Given the relatively benign appearance of these 2 lesions, rather than biopsy of 2 separate lesions, follow-up left breast diagnostic mammogram and left breast ultrasound in 6 months is recommended RECOMMENDATIONS: SHORT TERM FOLLOW-UP DIAGNOSTIC MAMMOGRAM LEFT BREAST IN 6 MONTHS. SHORT TERM FOLLOW-UP ULTRASOUND LEFT BREAST IN 6 MONTHS. PLEASE NOTE: A NORMAL MAMMOGRAM DOES NOT EXCLUDE THE POSSIBILITY OF BREAST CANCER. A CLINICALLY SUSPICIOUS PALPABLE LUMP SHOULD BE BIOPSIED. Dictated by: James Davis MD on 12/13/2023 at 09:54 Approved by: James Davis MD on 12/13/2023 at 09:57
== END 2023-12-12 13:50 | disposition home or self-care (01) ==
LOC: MAMMO 13:49
PROVIDERS: PCP Family Medicine; Visit Provider Family Medicine
DX: R92.8 Other abnormal and inconclusive findings on diagnostic imaging of breast (principal)
CPT/HCPCS: 76642; 77065

== ENCOUNTER 2024-01-18 08:43 | Outpatient (OUT) | payer MEDICARE, SELFPAY ==
--- OUTSIDE RECORDS SUMMARY | 2024-01-18 08:50 | XMS_ITS | CCD ---
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 Name Role Phone Park Carias Unavailable Unavailable Primary Care Provider GRACIE Damian Attending Unavailable JOHN QUIROZ Attending Unavailable Allergies Allergy Classification Reported Allergen(s) Allergy Type Date of Onset Reaction(s) Facility (3 sources) Naproxen Drug Allergy 01-16-2012 [id number] Other Medications Current Medications Medication Drug Class(es) [...] ALLIED HEALTHon 11-21-2019 ALLIED HEALTH HNO ID: [id number] Author: Ema Ferrer (Chaplain) Service: Healing Service Author Type: Type: Allied Health Filed: 11/21/2019 7:57 AM Note Text: SPIRITUAL CARE Spiritual Care Visit Record Name: Betina Morelos Date: November 21, 2019 Type of Visit: Preoperative Prayer/Visit Visit was with (pt, dtr). Ministry Provided During Visit: Spiritual Presence / Support Notes: I introduced self. Pt is Religion. I gave her a blessing. Pt thanked for visit. Referrals: No referral made Will See: As Needed Only Follow-up Notes: Informed patient and family of Rn Procedures availability Rn Procedures Signature: Ema Ferrer Rn Procedures Student To contact the Spiritual Care Department: Please call [phone] or Page the On-Call Rn Procedures at pager [phone] Thank you for the opportunity to be of service. This is an electronically created document. IF PRINTED, PLEASE DO NOT REMOVE FROM THE CHART OR MODIFY PRINTED COPY. [facility] ANES Nerissa 11-21-2019 ANES POST HNO ID: [id number] Author: Aimee Quintero I Service: Anesthesiology Author [...] DATE: November 21, 2019 TIME: 12:19 PM [facility] ANES PREOPon 11-21-2019 ANES PREOP HNO ID: [id number] Author: Aimee Quintero I Service: Anesthesiology Author [...] Encounter Medication Sig - vit A-vit C-vit T-rkfh-peuzwc (EYE VITAMIN AND MINERALS) 7,160-113-100 ppjm-rc-omho tab Eye Vitamin and Minerals - timolol [...] November 21, 2019 TIME: 7:02 AM Normal [facility] CYTOLOGYon 11-21-2019 CYTOLOGY Specimen originated from [facility] Specimen #: [id number] Submitting Physician: ALLISON ORO SPECIMEN SUBMITTED A: [...] CYST FLUID, FINE NEEDLE ASPIRATE THIN PREP Non-Hospice Superintendent B: ABDOMINAL FLUID (THINPREP AND CELL BLOCK) THIN PREP Non-Hospice Superintendent, CELL BLOCK, H&E, Initial Date of Report: 11/21/2019 Date of Procedure: 11/21/2019 Date of Receipt: 11/21/2019 Submitted by: ALLISON ORO Location: [facility] Diagnostic interpretation performed at [facility], [address] [place] [address], [place] [address]. CLIA Number: [id number] [facility] HISTORY PHYSICALon 0 HISTORY PHYSICAL HNO ID: [id number] Author: Allison Oro Service: General Surgery Author [...] a result of the 08/19/19 order by [facility] Director Darling Espino M.D. to [...] DATE: November 21, 2019 TIME: 7:13 AM PAGER:[phone] [facility] NURSING PROGon 11-21-2019 NURSING PROG HNO ID: [id number] Author: Yomaira DuranRn) KAILYN Montano Service: ? [...] note was completed by: Yomaira Montano RN [facility] NURSING PROG HNO ID: [id number] Author: Zarina (Rn) KAILYN Brownlee Service: ? [...] note was completed by: Hernan Brownlee RN [facility] OPERATIVE NOon 11-21-2019 OPERATIVE NO HNO ID: [id number] Author: Allison Oro Service: General Surgery Author Type: Physician Type: Operative Report Filed: 11/24/2019 10:33 AM Note Text: [facility] - Operative Report BETINA MORELOS : 1950 AGE: 69. SEX: F PATIENT TYPE: I HOSP SVC: GENS LOCATION: [facility] ATTENDING PHYSICIAN: Allison Oro MD CSN NUMBER: [id number] DATE OF SURGERY/PROCEDURE: 11/21/2019 INCISION/PROCEDURE START TIME: 7:55 am INCISION CLOSE/PROCEDURE END TIME: 8:59 am PREOPERATIVE DIAGNOSIS: Symptomatic right lobe liver cyst. POSTOPERATIVE DIAGNOSIS: Symptomatic right lobe liver cyst. SURGEON: Allison Oro MD CHILD GUIDANCE COUNSELOR: No Additional Staff SURGERY/PROCEDURE: Laparoscopy and cyst [...] portions of the operation. Allison Oro MD CTS:[id number] /[id number] cc: [facility] PROGRESSon 11-21-2019 PROGRESS HNO ID: [id number] Author: Allison Oro Service: General Surgery Author Type: Physician Type: Progress Notes Filed: 11/21/2019 7:35 AM Note Text: labs from Jul 2019 Na 140 K 4.5 hand cultivator 0.76 Alt 7 Ast 15 T Bili 1.2 WBC 5.3 Hgb 13.7 Hct 43.3 Plt 205 [facility] PT EDon 11-21-2019 PT ED HNO ID: [id number] Author: Yomaira (Rn) KAILYN Montano Service: ? [...] None Electronically Signed By: Yomaira Montano RN [facility] SURGICAL PATHOLOGYon 020 SURGICAL PATHOLOGY Specimen originated from [facility] Specimen #: [id number] Submitting Physician: ALLISON ORO FINAL DIAGNOSIS Liver cyst wall, excision (A) - Simple biliary-type cyst with associated fibrosis. . [facility] 11/26/2019 Shawn Hutchinson M.D., Ph.D. (Electronic Signature) [...] thickness. No excrescences or papillations are identified. Revenue Stamper sections are submitted in seven cassettes. LINA/carmen 11/21/2019 Gross examination performed at [facility], [address] [place] [address] Date of Report: 11/27/2019 Date of Procedure: 11/21/2019 Date of Receipt: 11/21/2019 Submitted by: ALLISON ORO Location: [facility] Diagnostic interpretation performed at [place] [address]. CLIA Number: [id number] [facility] Wound Culture/Stainon 2019 Wound Culture/Stain Sp. Request/Comment: - Eswab Smear Result - No organisms seen No Polymorphonuclear Leukocytes Culture Result - No growth 3 days [facility] Comment on above: Performed By: #### W CUL ####[facility] [address] [place], [place] [phone] Wound Culture/Stain Sp. Request/Comment: - Eswab Smear Result - No organisms seen No Polymorphonuclear Leukocytes Culture Result - No growth 3 days [facility] Comment on above: Performed By: #### W CUL ####[facility] [place], [place] [phone] Confirm Blood Typeon 020 ABO/RH(D) Positive [facility] [id number] 11-18-2019 ECG01 NAME : RUPAL MORELOS PID : [id number] : 1950 Gender : Female Race : ORD : [id number] Procedure Date : Nov 18 2019 13:19:19 [...] ms QTC Calculation(Bazett) : 412 ms P Mills : -2 degrees R Mills : 51 degrees T Mills : -1 degrees Test Reason : Location : : [facility] Overread By : DARON NAVARRO M.D. Edited By : DARON NAVARRO M.D. Referred By : BARBIE BURTON Acquired by : AMIRA WALLACE [facility] HOSPon 09-18-2019 HOSP Patient:Pola Morelos ee n M MRN: Height:5' 6.5 [patient reported[(1.689 m) Weight:152 lb (68.947 kg) Outpatient Medications as of 11/21/19: vit A-vit C-vit D-npje-rvjffe (EYE VITAMIN AND MINERALS) 7,160-113-100 wvfx-rw-gbof tab timolol maleate (TIMOPTIC) 0.5 % ophthalmic [...] notes entered within the past 30 days [facility] Reminderson 04-15-2019 Reminders - From: Aurora Medina CMA To: [facility] - Reminders/Recalls; Sent: 12/04/2018 12:26:41 EDT Show up: 03/04/2019 12:26:00 EDT Subject: 2018 RECALL Due Date/Time: 04/20/2019 12:26:00 EST Reminder/Recall Colonoscopy recall [address] Azevedo Due 04/20/19 First Recall Letter Sent Clp Second Recall Letter Normal [facility] Vital Signs Date Time Vital Sign Value Performing Clinician Facility 05-09-2023 12:40-0500 Body height 165.1 cm Park Carias Other [facility] Other 05-09-2023 12:40-0500 Body mass index (BMI) [Ratio] 22.46 kg/m2 Park Carias Other [facility] Other 05-09-2023 12:40-0500 Body temperature 98 [degF] Park Carias Other [facility] Other 05-09-2023 12:40-0500 Body weight 61.24 kg Park Carias Other [facility] Other 05-09-2023 12:40-0500 Diastolic blood pressure 65 mm[Hg] Park Carias Other [facility] Other 05-09-2023 12:40-0500 Respiratory rate 18 /min Park Carias Other [facility] Other 05-09-2023 12:40-0500 SaO2% (BldA) [Mass fraction] 98 % Park Carias Other [facility] Other 05-09-2023 12:40-0500 Systolic blood pressure 133 mm[Hg] Park Aretha Other [facility] Other Encounters Encounter Date Encounter Type Care Provider Facility Start: 10-18-2023 End: 10-18-2023 ambulatory JOHN QUIROZ Not Available Start: 07-13-2023 [facility] Gracie stern PA Work Phone: [facility] [...] 05-09-2023 End: 05-09-2023 ambulatory Park Carias Other [facility] Other Start: 05-09-2023 Office outpatient ne w 20 minutes Park Carias [facility] Procedures Date Procedure Procedure Detail Performing Clinician Start: 07-13-2023 End: 07-13-2023 CRYOTHERAPY SKIN LESION Gracie LARIOS Work Phone: Start: 11-18-2019 Antibody screen Plan of Treatment Date Care Activity Detail Author Start: 07-14-2024 End: 07-14-2024 Patient encounter procedure 07/14/2024 10:50 AM EST Office Visit [facility] [address] [place] [address] Gracie Luna PA [address] [place], [place] [phone] [facility] Start: 07-13-2023 End: 07-13-2023 Patient encounter procedure 07/13/2023 11:50 AM EST Office Visit [facility] [address] [place] [address] Gracie Luna PA [address] [place], [place] [phone] Arrived [facility] Comment on above: Arrived Start: 02-02-2023 Influenza vaccination Influenza Vacc ine (#1) [facility] Start: 2013 Pneumococcal Vaccine : 65+ Years (1 - PCV) Pneumococcal Vaccine: 65+ Years (1 - PCV) [facility] Start: 1950 Screening for malign ant neoplasm of colon [facility] Payers Date Payer Category Payer Private Health Insurance [employer] [id number] 2020-Present [address] [place] [address] Supplement [id number] 2020 Unknown [id number] 2013 Medicare [id number] 2013 Medicare MEDICARE MEDICAR E PART B [id number] 2013-Present [address] [address] [place] [address] Medicare [id number] 1950 Unknown [id number] 1950 Unknown [id number] Social History Date Type Detail Facility Unknown if ever smoked [facility]ly [facility] Other Start: 07-13-2023 Sex Assigned At N [facility] Other Tobacco smoking status ORIS Tobacco smoking consumption unknown [facility] Start: 1950 Sex Assigned At Female [facility] Start: 07-12-2023 Gender identity Identifies as female gender (finding) [facility] Start: 07-13-2023 Tobacco smoking status ORIS Never smoked tobacco [facility] Start: 07-13-2023 Tobacco use and exposure Smokeless tobacco non-user [facility] Start: 07-13-2023 History of Social function [facility] History of Present illness Narrative 07-13-2023 [...] Examined Right arm Examined Patient wearing nail bahamian, Denies dark streaks on toenails Left arm [...] limited to risks of scarring, darker or typewriter repairer pigmentary changes, recurrence, incomplete removal and infection. [...] limited to risks of scarring, darker or typewriter repairer pigmentary changes, recurrence, incomplete removal and infection. [...] Visit: 1 year documented in this encounter [facility] Evaluation note 05-09-2023 Note Date & [...] no improvement in 2 to 3 days [facility] Other Evaluation note Note Date & Type [...] MRI abdomen Surgical History SINUS SX 1999 [facility] Other Summary Purpose Family History No Family History Records FoundNo Family History Records FoundNo Family History Records Found Advance Directives No Advanced Directives Records FoundNo Advanced Directives Records FoundNo Advanced Directives Records Found Procedure Findings Note HNO ID: [id number] Author: Eleazar Martin Service: General Surgery Author Type: Resident Type: Brief Op Note Filed: 11/21/2019 9:09 AM Note Text: GENERAL SURGERY BRIEF OPERATIVE NOTE Betina M Sina [id number] LOG ID: [id number] Surgery/Procedure Date: 11/21/2019 Incision/Procedure Start Time: 7:55 AM Incision Close/Procedure End Time: 8:59 AM Surgeon(s)/Proceduralist(s) and Diorama Model Maker(s): Surgeon(s) and Role: * Allison Oro - [...] and content) DATE CREATED AUTHOR 04/15/2019 [facility] DATE CREATED AUTHOR AUTHOR'S ORGANIZ ATION 12/24/2019 [facility] DATE CREATED AUTHOR AUTHOR'S ORGANIZ ATION 10/20/2023 [facility] EPIC REASON FOR VISIT (unrecogniz [...] BE BASED ON THE PRIMARY CLINICAL RECORDS. [facility] [employer] [facility]. provides no warranty or guarantee of the accuracy or completeness of information in this document.
--- NOTE | 2024-01-18 09:01 | XR_ITS ---
[address] [address] Patient Name: KRISTY MORELOS MRN: [facility]:[id number] date: 1950 Sex: F Assigned Patient Location: Current Patient Location: [place] Accession/Order Number: [id number] Exam Date: 01/18/2024 09:49 Report Date: 01/18/2024 12:24 At the request of: DAVID ELDRIDGE Procedure: XR DEXA axial skeleton EXAMINATION: XR DEXA axial skeleton HISTORY: Asymptomatic Menopause COMPARISON: DEXA bone densitometry 06/30/2013 TECHNIQUE: Dual-energy X-ray absorptiometry (DXA) was performed. FINDINGS: SPINE ANALYSIS: Average bone mineral density is 1.018 g/cm2. T-score (standard deviation relative to young adult mean): -1.4 . -4.1% change since prior study. HIP ANALYSIS: Lowest bone mineral density is within the right femoral neck, 0.795 g/cm2. T-score (standard deviation relative to young adult mean): -1.7 . -9.8% change since prior study. XR/XR DEXA axial skeleton IMPRESSION: World Health Organization Classification: Osteopenia - Moderate Fracture Risk FRAX: Cannot calculate. Pharmacologic treatment recommendations * No uniform recommendation applies to all patients. Management plans must be individualized. * Consider initiating pharmacologic treatment in postmenopausal women and men >= 50 years of age who have the following: Primary fracture prevention: * T-score <= - 2.5 at the femoral neck, total hip, lumbar spine, 33% radius (some uncertainty with existing data) by DXA. * Low bone mass (osteopenia: T-score between - 1.0 and - 2.5) at the femoral neck or total hip by DXA with a 10-year hip fracture risk >= 3% or a 10-year major osteoporosis-related fracture risk >= 20% (i.e., clinical vertebral, hip, forearm, or proximal humerus) based on the US-adapted FRAXregistered model. Secondary fracture prevention: * Fracture of the hip or vertebra regardless of BMD [4, 5]. * Fracture of proximal humerus, pelvis, or distal forearm in persons with low bone mass (osteopenia: T-score between - 1.0 and - 2.5). The decision to treat should be individualized in persons with a fracture of the proximal humerus, pelvis, or distal forearm who do not have osteopenia or low BMD [12, 13]. Joel MS, Kya SL, Mary KL, Bertrand EM, Frida KG, AJ, Manuel ES. The clinician's guide to prevention and treatment of osteoporosis. Osteoporos Int. 2021;33(10):7004-2527. doi: 10.1007/x15885-343-78222-y. Epub 2021Sep 29. Erratum in: Osteoporos Int. 2021Dec 29;: PMID: 62806980; PMCID: [id number]. Electronically authenticated by: ABRIL HOOVER Date: 01/18/2024 12:24
--- NOTE | 2024-01-18 09:01 | US_ITS ---
The [address] [address] Patient Name: KRISTY MORELOS MRN: [id number] date: 1950 Sex: F Assigned Patient Location: Current Patient Location: Accession/Order Number: [id number] Exam Date: 01/18/2024 09:05 Report Date: 01/21/2024 10:31 At the request of: DAVID ELDRIDGE Procedure: US right upper quadrant EXAMINATION: US right upper quadrant HISTORY: Liver Cyst K76.89 COMPARISON: No relevant comparison available. TECHNIQUE: Transabdominal evaluation of the right upper quadrant. FINDINGS: LIVER: Within the right hepatic lobe is a complex multiseptated cyst versus complex mass, 9.5 x 8.5 x 7.4 cm. Contains several small cysts. Color Doppler demonstrates patent hepatic veins. PORTAL VEIN: Duplex Doppler demonstrates normal hepatopetal flow pattern with flow velocity averaging 20 cm/s. GALLBLADDER: No visible gallstones, wall thickening, or pericholecystic free fluid. Negative sonographic Cook's sign. BILIARY: No abnormal dilation or stones. Common bile duct diameter is within normal limits. PANCREAS: No visible mass, abnormal atrophy, or duct dilation. KIDNEY: No hydronephrosis. Contains a couple benign-appearing cysts, 3.2 cm and 2.4 cm in size. No visible mass or stones. Size: 9.6 x 4.1 x 5.2 cm US/US right upper quadrant IMPRESSION: 1. Nonspecific 9.5 cm lesion within the right hepatic lobe; complex cysts versus hemangioma versus mass. CT imaging of the abdomen without and with IV contrast using the multiphase liver protocol is recommended for further evaluation. 2. Right renal lesions favoring benign cysts. These could also be evaluated during CT imaging. Electronically authenticated by: ABRIL HOOVER Date: 01/21/2024 10:31
== END 2024-01-18 08:44 | disposition home or self-care (01) ==
LOC: US 08:43
PROVIDERS: PCP Family Medicine; Visit Provider Family Medicine
DX: K76.89 Other specified diseases of liver (principal); Z78.0 Asymptomatic menopausal state
CPT/HCPCS: 76705; 77080

== ENCOUNTER 2024-01-25 07:51 | Outpatient (OUT) | payer MEDICARE, SELFPAY ==
--- NOTE | 2024-01-25 08:00 | CT_ITS ---
[address] [address] Patient Name: KRISTY MORELOS MRN: [facility]:[id number] date: 1950 Sex: F Assigned Patient Location: LAB Current Patient Location: Accession/Order Number: [id number] Exam Date: 01/25/2024 08:55 Report Date: 01/28/2024 12:04 At the request of: DAVID ELDRIDGE Procedure: CT abdomen wo/w con EXAMINATION: CT abdomen wo/w con HISTORY: liver mass, abdominal mass R16.0 COMPARISON: No relevant comparison available. TECHNIQUE: Axial, Coronal, and Sagittal images were created without and with non-ionic intravenous contrast material. Dose reduction techniques were achieved by using automated exposure control and/or adjustment of mA and/or kV according to patient size and/or use of iterative reconstruction technique. FINDINGS: LUNG BASES: No visible pulmonary or pleural disease. LIVER: Numerous hepatic hypodensities likely representing cysts the largest in the right hepatic lobe measures 7.2 cm in diameter. None of these lesions demonstrate definite postcontrast enhancement. BILIARY: The gallbladder is not visualized PANCREAS: No lesion, fluid collection, ductal dilatation, or atrophy. SPLEEN: No enlargement or focal lesion. ADRENALS: No mass or enlargement. KIDNEYS: No mass, obstruction, or calcification. BOWEL/MESENTERY: No visible mass, obstruction, or bowel wall thickening. AORTA/VASCULAR: No aortic aneurysm. Moderate diffuse atherosclerosis RETROPERITONEUM: No mass or adenopathy. LYMPH NODES: No adenopathy. ABDOMINAL WALL: No mass or hernia. BONES: Moderate degenerative changes with rotatory levocurvature OTHER: Negative. CT/CT abdomen wo/w con IMPRESSION: Multiple nonenhancing liver lesions, cysts are favored Electronically authenticated by: AVIVA RUSHING Date: 01/28/2024 12:04
[2024-01-25 08:10] LABS: Estimated GFR (African America >60 (>=60); Estimated GFR (Non-African Ame >60 (>=60)
== END 2024-01-25 07:52 | disposition home or self-care (01) ==
LOC: LAB 07:51
PROVIDERS: PCP Family Medicine; Visit Provider Family Medicine
DX: R16.0 Hepatomegaly, not elsewhere classified (principal)
CPT/HCPCS: 36415; 74170; 82565; Q9967

== ENCOUNTER 2024-03-19 09:18 | Outpatient (OUT) | payer MEDICARE, SELFPAY ==
--- NOTE | 2024-03-14 08:23 | VEINCLINIC_ITS ---
Vital Signs 03/14/24 08:30 03/19/24 09:37 Height 5 ft 6 in Weight 63.049 kg BMI 22.4 BP 124/60 BP Location Right Brachial BP Position Sitting BP Cuff Size Adult BP Source Manual Cuff Respiration 16 Pulse 73 Pulse Source Monitor Pulse Oximetry (%) 98 Oxygen Delivery Method Room Air Comment The patient's blood pressure is elevated. Varicose Veins Patient is a 73 year old female in this day for EVLT of right GSV. Patient c/o bulging, dilated , discolored veins, leg pain and muscle cramps. James Castillo MD personally performed the services described in this documentation, as scribed by Vernon Garland RN in my presence and it is both accurate and complete. IVernon RN, am scribing for, and in the presence of, Dr. James Davis and in the presence of the patient. thigh: bilateral (symptoms equally bilateral), knee: bilateral, calf: bilateral, ankle: bilateral and ross: bilateral aching, cramping, dull and tender 2 20 years Worsened in recent months: Yes standing analgesics, elevating extremities, compression stockings and exercise Reports muscle spasms of leg, heaviness, limb pain, edema and leg edema History of lower extremity trauma: No Superficial thrombophlebitis: No Family history of varicose veins: yes Has patient had previous lower extremity venous surgery: No Patient has previously received the following treatment(s) for lower extremity varicose veins: Reports none Does patient have a history of : yes Does patient intend to have future pregnancies: no Has patient had lower extremity venous scan with relux testing: No Support hose used: Yes Problems walking or doing physical activity: Yes How does it affect you: often has to stop and rest and elevate legs/feet Do you walk much: Yes Do you stand much: Yes Review of Systems ROS Narrative James Castillo MD personally performed the services described in this documentation, as scribed by Vernon Garland RN in my presence and it is both accurate and complete. Vernon Castillo RN, am scribing for, and in the presence of, Dr. James Davis and in the presence of the patient. Status of ROS 10 or more systems reviewed and unremark able except as noted in history and below Cardiovascular Reports: edema Integumentary/Breast Reports: skin tenderness, skin swelling and changes in skin color Neurological Reports: numbness in extremities and weakness in extremities [facility] Medical History (Updated 03/14/24 @ 08:42 by Venron Garland) Foreign object left in body during procedure ?T81.509A - Unspecified complication of foreign body accidentally left in body following unspecified procedure, initial encounter (ICD-10) Cataract ?H26.9 - Unspecified cataract (ICD-10) Glaucoma ?H40.9 - Unspecified glaucoma (ICD-10) Peripheral neuropathy ?G62.9 - Polyneuropathy, unspecified (ICD-10) Pain due to varicose veins of both lower extremities ?I83.813 - Varicose veins of bilateral lower extremities with pain (ICD-10) Surgical History (Updated 03/19/24 @ 10:16 by Vernon Garland) Status post laser ablation of incompetent vein ?Z98.890 - Other specified postprocedural states (ICD-10) Social History (Updated 03/14/24 @ 08:42 by Vernon Garland) Within the past year, how often did you have a drink containing alcohol: monthly or less Smoking status: Never smoker Non-prescribed substance use: denies use Meds Home Medications and Allergies Allergies Allergy/AdvReac Type Severity Reaction Status Date / Time naproxen (From Aleve) Allergy Intermediate Hives Verified 03/14/24 08:43 Exam Narrative Exam Narrative: James Castillo MD personally performed the services described in this docu mentation, as scribed by Vernon Garland RN in my presence and it is both accurate and complete. IVernon RN, am scribing for, and in the presence of, Dr. James Davis and in the presence of the patient. Constitutional Documenting provider has reviewed patient's vital signs: yes Common normals: oriented x3 Cardio Peripheral pulses: posterior tibial pulses present and dorsalis pedis pulses present Extremity Common normals: normal capillary refill General: edema Right lower extremity: lower leg Right lower leg: inspection and palpation Left lower extremity: lower leg Left lower leg: inspection and palpation Neuro Common normals: oriented x3 Assessment and Plan Assessment and Plan (1) Pain due to varicose veins of both lower extremities: Plan f/u evaluation with physician along with right leg limited u/s James Castillo MD personally performed the services described in this documentation, as scribed by Vernon Dada RN in my presence and it is both accurate and complete. I, Vernon Garland RN, am scribing for, and in the presence of, Dr. James Davis and in the presence of the patient. Procedures Procedure Instructions Procedures Plan of care: Risks and benefits of the procedure were discussed at length and informed written consent was obtained.? Time-out completed for verification of correct patient, procedure and site.? Staff present during time-out: Vernon Garland, RN,? James Davis MD, Fatou Cruz [facility] Time Out Time__1009 Patient prepped and procedure performed in usual sterile fashion. Risk of injury related to use of Diode laser and/or laser devices? __CR___ ? Serial number of laser used :? [id number] Control panel self test performed, electrical cords in good condition, floor is dry, basin of water available, fire extinguisher in close proximity_CR__ Polycarbonate goggles available and Laser warning signs outside of doors___CR__ Eye protection provided to patient and staff in room_CR___ Use of laser retardant drapes and dull blackened instruments as directed__CR___ Use of nonflammable prep solutions and use of saline soaked sponges to protect tissues as indicated _CR___ Length __58___ cm Laser operated by ___Dr. Davis Physician verbal confirmation laser locked in place__CR__ Laser start time (date and time) _03/19/2024@_1022 Laser stop time(date and time) __03/19/2024@_1028 Danielle _8.0___ Average laser use __2816 Joules Average laser use__352 seconds Pulse continuous ___CR_? Pulse intermittent ___ Amount of Tumescent used __300cc____ Evaluated patient for signs and symptoms of electrical injury __CR___ ? Skin clear at insertion site __CR___ Patient tolerated procedure well.? Right leg Coban dressing applied to access si te.? Applied right thigh high leg compression stocking. Will return on 03/26/2024 for right leg limited venous ultrasound and exam. IJames MD personally performed the services described in this documentation, as scribed by Vernon Garland RN in my presence and it is both accurate and complete. I, Vernon Garland RN, am scribing for, and in the presence of, Dr. James Davis and in the presence of the patient.
[2024-03-14 08:30] VITALS: BMI 22.4
--- NOTE | 2024-03-14 08:47 | P.DS_ITS ---
Discharge Plan Discharge Disposition: Home, Self-Care Outpatient Diagnostics: [facility] Facility EST LMTD (Routine) Timeframe: 2 Weeks Facility: [facility] - Location: [facility] Ordered By: James Davis VC EXT Venous RT LMTD (Routine) Timeframe: 2 Weeks Facility: [facility] - Location: [facility] Center Ordered By: James Davis Follow Up Appointments: 03/29/2024 Plan of Treatment: f/u evaluation with physician along with right leg limited u/s Patient Instructions: Endovenous Ablation (DC) Print Language: Kyrgyz Discharge Date/Time: 03/19/24 10:18
[2024-03-19] MEDS: LIDOCAINE HCL 1% 100 MG/10 ML MDV INJ (09:27)
--- NOTE | 2024-03-19 09:27 | VEIN_ITS ---
[address] [address] Patient Name: KRISTY MORELOS MRN: [id number] date: 1950 Sex: F Assigned Patient Location: Current Patient Location: Accession/Order Number: [id number] Exam Date: 03/19/2024 09:34 Report Date: 03/19/2024 11:10 At the request of: AVIVA RUSHING Procedure: VC Endovenous Ablation 1VeinRT EXAMINATION: VC Endovenous Ablation 1VeinRT HISTORY: I83.813 Bilateral painful varicose veins COMPARISON: No relevant comparison available. TECHNIQUE: The risks and benefits of the procedure had been previously discussed, and were rediscussed at length. Informed written consent was obtained. Fatou Cruz and Vernon Garland assisted. Time out procedure was performed. The right lower extremity was prepared and draped in the usual sterile fashion to allow knee flexion in the sterile field. Duplex ultrasound probe was draped in a sterile cover, sterile transmission gel was used. Venous mapping was performed with the areas of dilation and large tributaries marked. The total length was 58 cm from the entry 10 cm above the medial malleolus to 3 cm below the saphenofemoral junction. The diameter of the greater saphenous vein ranged from 5-8 mm. A 30 gauge needle and 1% buffered lidocaine was used to anesthetize the entry site. A 4 mm incision was made with a scalpel and the saphenous vein was entered percutaneously under direct ultrasound guidance with a micropuncture set, a single stick was successful in gaining access. A micro-guide wire was inserted and the needle removed. A micro-set including a dilator was inserted over the microwire and the needle and dilator were removed. A 0.018 guide wire was inserted through the micro-set and threaded through the saphenous vein to the saphenofemoral junction. The dilator was removed and an introducer sheath was inserted over the wire until the end of the sheath entered the saphenofemoral junction. The dilator and wire were removed and the 600 micron fiber was introduced and placed and positioned so that it extended beyond the sheath and was 3 cm peripheral to the saphenofemoral femoral junction. Final position of the fiber was determined by ultrasound guidance and duplex imaging. Tumescent anesthetic was delivered by ultrasound guidance. 300 cc of fluid was delivered along the entire course of the saphenous vein. The solution consisted of 1000 cc of normal saline with 40 mL of 1% lidocaine and 20 mL of sodium bicarbonate. A final positioning check was made. The energy source was turned on by means of the foot pedal and the fiber and sheath were withdrawn. The total number of Joules delivered was 2816. The laser was active for 352 seconds under continuous pulse, average laser use of 8 J. Laser start time 10:22 AM 03/19/2024 . Laser stop time 10:28 AM 03/19/2024 . A duplex ultrasound revealed compressibility and flow at the saphenofemoral junction immediately after the procedure. Hemostasis at the access site was achieved. The skin incision of the saphenous vein was closed with a 4 x 4. A compression stocking was applied. Postop instructions were given. A follow up appointment was recommended and scheduled. The patient tolerated the procedure well and was discharged in good condition . VEIN/VC Endovenous Ablation 1VeinRT IMPRESSION: Technically successful endovenous laser ablation right great saphenous vein Electronically authenticated by: AVIVA RUSHING Date: 03/19/2024 11:10
[2024-03-19] MEDS: 0.9 % SODIUM CHLORIDE 500 ML, LIDOCAINE HCL 20 ML, SODIUM BICARBONATE 10 MEQ INJ (09:28)
[2024-03-19 09:37] VITALS: BP 124/60; PULSE 73; O2SAT 98
--- OUTSIDE RECORDS SUMMARY | 2024-03-19 09:39 | XMS_ITS | CCD ---
Author Organization [facility] Inform ion Partnership [facility] Care Team Providers Care Donor Services Technician Name Role Phone Park Carias Unavailable Unavailable Primary Care Provider UnavailGRACIE Rodriguez Attending Unavailable JOHN QUIROZ Attending Unavailable Arden Martinez DO Primary Care Provider Kenyon Tamayo Unavailable ARDEN MARTINEZ Primary Care Unavailab ALLISON Bocanegra Attending Unava ilable Allergies Allergy Classification Reported Allergen(s) Allergy Type Date of Onset Reaction(s) Facility (3 sources) Naproxen Drug Allergy 01-16-2012 [facility] Other (2 sources) Naproxen; Translations: [NAPROXEN SODIUM] Drug Allergy 01-16-[address] [facility] Medications Current Medications Medication Drug Class(es) Dates Sig (Normalized) Sig (Original) amoxicillin 875 mg / clavulanate 125 mg oral tablet (1 source) Penicillin-class Antibacterial Start: 05-09-2023 take 1 tablet by mouth every twelve hours Amoxicillin-Pot Clavulanate 875-125 MG 1 tablet Orally every 12 hrs for 10 day(s) May, Active bimatoprost 0.1 mg/ml ophthalmic solution (4 sources) Prostaglandin Analog Start: 08-01-2011 Bimatoprost (LUMIGAN) 0.01 % OPHTHALMIC Drop 1 Drop. 0 08/01/2011 Active Lumigan 0.01 % o phthalmic solution 1 (one) time each day at the same time 0 Active take 1 drop(s) into the eye(s) once daily in the evening Lumigan 0.01 % 1 drop into affected eye in the evening Ophthalmic Once a day Active cetirizine hydrochloride 10 mg oral tablet (2 sources) Histamine-1 Receptor Antagonist cetirizine (ZYRTEC) 10 mg tablet q 24 HR. Active ZyrTEC Allergy N ot-Taking fexofenadine hydrochloride 180 mg oral tablet (1 source) Histamine-1 Receptor Antagonist take 1 tablet by mouth once daily fexofenadine (ANGEL ALLERGY) 180 mg tablet Take 180 mg by mouth once daily. Active fluticasone propionate 0.05 mg/actuat metered dose nasal spray (1 source) Corticosteroid Start: 023 take 2 spray(s) nasal route once daily Fluticasone Propionate 50 MCG/ACT 2 sprays Nasally Once a day for 14 day(s) May, Active methylPREDNISolone 4 mg oral tablet (1 source) Corticosteroid Start: Medrol 4 MG as directed Orally As Directed for 6 days May, Active pantoprazole 40 mg delayed release oral tablet (2 sources) Proton Pump Inhibitor take 1 tablet by mouth once daily pantoprazole DR (PROTONIX) 40 mg tablet pantoprazole 40 mg tablet,delayed release Take 1 tablet every day by oral route. Active Pantoprazole Sod ium Not-Taking 12 hr timolol 5 mg/ml ophthalmic solution (4 sources) beta-Adrenergic Mary timolol maleate (TIMOPTIC) 0.5 % ophthalmic solution timolol maleate 0.5 % eye drops Active take 1 drop(s) into the eye(s) once daily Timolol Maleate 0.25 % 1 drop into affec ameya eye Ophthalmic Once a day Active vit A-vit C-vit E-vysf-pdips r (EYE VITAMIN AND MINERALS) 7,160-113-100 jeic-bu-fvjx tab (1 source) vit A-vit C-vit K-scbu-dudica (EYE VITAMIN AND MINERALS) 7,160-113-100 rcom-fh-slgd tab Eye Vitamin and Minerals Active Completed/Discontinued Medications Medication Drug Class(es) Dates Sig (Normalized) Sig (Original) Triamcinolone (1 source) Corticosteroid Triamcinolone Ac etonide Not-Taking Problems Active Problems Problem Classification Problem Date Documented Da te Episodic/Chronic Digestive congenital anomalies (1 source) Congenital cystic disease of liver; 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] 02-11-2024 Chronic Disorders of lipid metabolism (1 source) Hyperlipidemia; Translations: [Hyperlipidemia, unspecified] 11-18-2019 Chronic Glaucoma (1 source) Glaucoma; Translations: [Unspecified glaucoma] 11-18-2019 Chronic Other and unspecified benign neoplasm (1 source) Hemangioma; Translations: [Hemangioma of unspecified site] Episodic Other and unspecified benign neoplasm (2 sources) Melanocytic nevus of trunk; Translations: [Melanocytic nevi of trunk] 07-13-2023 Episodic Other gastrointestinal disorders (1 source) Ascites; Translations: [Other ascites] Episodic Other liver diseases (2 sources) Liver cyst; Translations: [Other specified diseases of liver] Onset: 09-08-2019 12-08-2019 Chronic Other lower respiratory disease (1 source) Cough; Translations: [Cough] Episodic Other lower respiratory disease (1 source) Chronic cough; Translations: [Chronic cough] 11-18-2019 Episodic Other screening for suspected conditions (not mental disorders or infectious disease) (1 source) Computed tomography result abnormal; Translations: [Abnormal CT scan] Chronic Other upper respiratory infections (1 source) Acute sinusitis, unspecified Episodic Past or Other Problems Problem Classification Problem Date Documented Da te Episodic/Chronic Allergic reactions (2 sources) Acute phototoxic dermatitis; Translations: [Other specified acute skin changes due to ultraviolet radiation] Onset: 05-11-2009 05-11-2009 Episodic Neoplasms of unspecified nature or uncertain behavior (1 source) Neoplasm of uncertain behavior of skin; Translations: [Neoplasm of uncertain behavior of skin] Onset: 08-01-2011 08-01-2011 Episodic Other and unspecified benign neoplasm (1 source) Hemangioma of skin; Translations: [Hemangioma of skin and subcutaneous tissue] Onset: 07-23-2012 07-23-2012 Episodic Other non-epithelial cancer of skin (2 sources) Malignant neoplasm of skin of face; Translations: [Other and unspecified malignant neoplasm of skin of other and unspecified parts of face] Onset: 03-17-2008 03-17-2008 Episodic Other screening for suspected conditions (not mental disorders or infectious disease) (2 sources) Patient encounter status; Translations: [Encounter for screening for malignant neoplasm of skin] Onset: 12-30-2009 12-30-2009 Episodic Other skin disorders (4 sources) Seborrheic keratosis; Translations: [Other seborrheic keratosis] Onset: 02-11-2008 07-13-2023 Episodic Other skin disorders (3 sources) Actinic keratosis; Translations: [Actinic keratosis] Onset: 02-11-2008 07-13-2023 Episodic Other skin disorders (3 sources) Inflamed seborrheic keratosis; Translations: [Inflamed seborrheic keratosis] Onset: 11-03-2008 07-13-2023 Episodic Other skin disorders (1 source) Disorder of pigmentation; Translations: [Disorder of pigmentation, unspecified] Onset: 01-22-2009 01-22-2009 Episodic Other skin disorders (1 source) Acne; Translations: [Acne, unspecified] Onset: 12-30-2009 12-30-2009 Episodic Viral infection (1 source) Verruca vulgaris; Translations: [Viral wart, unspecified] Onset: 12-30-2009 12-30-2009 Episodic Results Test Name Value Interpretation Reference Range Facility [facility] 02-11-2024 CNOV Office Visit ([facility] ) BETINA MORELOS ([id number]) 1950 F Date Time Provider Department 02/11/24 11:00 AM ALLISON ORO [facility] During your visit today, we recorded the following information about you: Temperature Pulse Blood pressure Weight 96.9 degrees 83/minute 130/68 65.9 kg Height 1.689 m Allison Oro MD 02/11/2024 11:45 AM Signed HISTORY AND PHYSICAL EXAMINATION SERVICE DATE: 02/11/2024 SERVICE TIME: 11:14 AM PRIMARY CARE PHYSICIAN: Arden Martinez MD, DO Attending Surgeon Patient here to review follow-up imaging of her liver She is s/p lap cyst drainage 4 years ago Minimal current symptoms Imaging with few small residual cysts No surgery recommended Follow-up on a prn basis I spent 15 minutes in the visit, with more than 50% of the total lhhr-yk-bpzt time of the visit in counseling / coordination of care. Allison Oro MD, PhD Subjective CHIEF COMPLAINT: Liver cysts. HPI: This is a 73 year old female who presents with history of liver cyst On November 21, 2019 she underwent a laparoscopy and cyst fenestration of right lobe liver cyst. She reports she was evaluated by Dr. Juan DO because she was having RUQ pain when bending down. She states the pain is sharp when she is in this bending position. November FINAL DIAGNOSIS Liver cyst wall, excision (A) - Simple biliary-type cyst with associated fibrosis. . [facility] 11/26/2019 Shawn Hutchinson M.D., Ph.D. 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 GENERAL: No weight loss, malaise or fevers RESPIRATORY: + chronic cough. No SOB. Negative for cough, hemoptysis, wheezing, COPD, dyspnea. CARDIOVASCULAR: + HLD. Negative for chest pain, leg swelling, CHF or palpitations GI: No nausea, vomiting, or diarrhea and No heartburn or reflux symptoms : No history of dysuria, frequency or incontinence MUSCULOSKELETAL: + lower back pain related to arthritis. Negative for joint pain or swelling, back pain or muscle pain SKIN: Negative for lesions, rash, and itching PSYCH: Negative for sleep disturbance, mood disorder and recent psychosocial stressors HEMATOLOGY/LYMPHOLOGY: Negative for prolonged bleeding, bruising easily or swollen nodes ENDOCRINE: Negative for cold or heat intolerance, polyuria, polydipsia and goiter NEURO: No history of headaches, syncope, paralysis, seizures or tremors Objective PHYSICAL EXAM: Physical Exam Performed: GENERAL: Alert, no distress, cooperative LUNGS: Lungs clear to auscultation, Good diaphragmatic excursion CARDIAC: Normal S1 and S2; no rubs, murmurs, or gallops ABDOMEN: Abdomen soft, non-tender, BS normal, No masses or organomegaly EXTREMITIES: Extremities normal, no deformities, edema, clubbing or skin discoloration. Good capillary refill., No ulcers PULSES: 2+ radial, 2+ carotid The remainder of the physical exam is noncontributory. BP 130/68 Pulse 83 Temp (Src) 96.9 (Temporal) Ht 5' 6.5 (1.69m) Wt 145 lb 3.2 oz (65.9kg) BMI 23.09 kg/(m2). DATA: Diagnostic tests reviewed for today's visit: Most recent labs and imaging results. Assessment/Plan Betina Morelos is a 73 year old female with history of simple biliary liver cyst s/p laparoscopy and cyst fenestration of right lobe liver cyst. SIGNATURE: Anh Bailey PA-C PATIENT NAME: Betina Morelos DATE: February 11, 2024 TIME: 11:43 AM Raissa Shook LPN 02/11/2024 11:10 AM Signed What is the reason for your visit today? liver cyst Who is your referring physician? DO [place] Are you having poor oral intake? NO Have you had unintentional weight loss of 15 lbs/7 Kg in the last 3-6 months? 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 Normal [facility] No Panel Informationon 07-13 [facility] ALLIED HEALTHon 11-21-2019 ALLIED HEALTH HNO ID: [id number] Author: Ema Ferrer (Chaplain) Service: Healing Service Author Type: Computer Project Manager Type: Allied Health Filed: 11/21/2019 7:57 AM Note Text: SPIRITUAL CARE Spiritual Care Visit Record Name: Betina Morelos Date: November 21, 2019 Type of Visit: Preoperative Prayer/Visit Visit was with (pt, dtr). Ministry Provided During Visit: Spiritual Presence / Support Notes: I introduced self. Pt is [employer]ism. I gave her a blessing. Pt thanked for visit. Referrals: No referral made Will See: As Needed Only Follow-up Notes: Informed patient and family of Computer Project Manager availability Computer Project Manager Signature: Ema Ferrer Computer Project Manager Student To contact the Spiritual Care Department: Please call [phone] or Page the On-Call Computer Project Manager at pager [phone] Thank you for the opportunity to be of service. This is an electronically created document. IF PRINTED, PLEASE DO NOT REMOVE FROM THE CHART OR MODIFY PRINTED COPY. [facility] ANES Nerissa 11-21-2019 ANES POST HNO ID: [id number] Author: Aimee Quintero I Service: Anesthesiology Author [...] DATE: November 21, 2019 TIME: 12:19 PM [facility] ANES PREOPon 11-21-2019 ANES PREOP HNO ID: [id number] Author: Aimee Quintero I Service: Anesthesiology Author [...] Encounter Medication Sig - vit A-vit C-vit H-jhtv-rnonws (EYE VITAMIN AND MINERALS) 7,160-113-100 jjzz-co-hkoz tab Eye Vitamin and Minerals - timolol [...] 2-10 mL INTRAVENOUS q 12 H Allison rOo Allergies: ALLERGIES Allergen Reactions - Aleve [Naproxen [...] November 21, 2019 TIME: 7:02 AM Normal [facility] CYTOLOGYon 11-21-2019 CYTOLOGY Specimen originated from [facility] Specimen #: [id number] Submitting Physician: ALLISON ORO SPECIMEN SUBMITTED A: [...] CYST FLUID, FINE NEEDLE ASPIRATE THIN PREP Non-Application Processor B: ABDOMINAL FLUID (THINPREP AND CELL BLOCK) THIN PREP Non-Application Processor, CELL BLOCK, H&E, Initial Date of Report: 11/21/2019 Date of Procedure: 11/21/2019 Date of Receipt: 11/21/2019 Submitted by: ALLISON ORO Location: [facility] Diagnostic interpretation performed at [facility], [address] [place] [address], [place] [address]. CLIA Number: [id number] [facility] HISTORY PHYSICALon 0 HISTORY PHYSICAL HNO ID: [id number] Author: Allison Oro Service: General Surgery Author [...] a result of the 08/19/19 order by [facility] of Health Director Darling Espino M.D. to [...] DATE: November 21, 2019 TIME: 7:13 AM PAGER:[phone] [facility] NURSING PROGon 11-21-2019 NURSING PROG HNO ID: [id number] Author: Yomaira DuranRn) KAILYN Montano Service: ? [...] note was completed by: Yomaira Montano RN [facility] NURSING PROG HNO ID: [id number] Author: Zarina (Rn) KAILYN Brownlee Service: ? [...] note was completed by: Hernan Brownlee RN [facility] OPERATIVE NOon 11-21-2019 OPERATIVE NO HNO ID: [id number] Author: Allison Oro Service: General Surgery Author Type: Physician Type: Operative Report Filed: 11/24/2019 10:33 AM Note Text: [facility] - Operative Report BETINA MORELOS : 1950 AGE: 69. SEX: F PATIENT TYPE: I HOSP SVC: GENS LOCATION: [facility] ATTENDING PHYSICIAN: Allison Oro MD CSN NUMBER: [id number] DATE OF SURGERY/PROCEDURE: 11/21/2019 INCISION/PROCEDURE START TIME: 7:55 am INCISION CLOSE/PROCEDURE END TIME: 8:59 am PREOPERATIVE DIAGNOSIS: Symptomatic right lobe liver cyst. POSTOPERATIVE DIAGNOSIS: Symptomatic right lobe liver cyst. SURGEON: Allison Oro MD POT FEEDER: No Additional Staff SURGERY/PROCEDURE: Laparoscopy and cyst [...] portions of the operation. Allison Oro MD CTS:[id number] /[id number] cc: [facility] PROGRESSon 11-21-2019 PROGRESS HNO ID: [id number] Author: Allison Oro Service: General Surgery Author Type: Physician Type: Progress Notes Filed: 11/21/2019 7:35 AM Note Text: labs from Jul 2019 Na 140 K 4.5 director of physical security 0.76 Alt 7 Ast 15 T Bili 1.2 WBC 5.3 Hgb 13.7 Hct 43.3 Plt 205 [facility] PT EDon 11-21-2019 PT ED HNO ID: [id number] Author: Yomaira (Rn) KAILYN Montano Service: ? [...] None Electronically Signed By: Yomaira Montano RN [facility] SURGICAL PATHOLOGYon 020 SURGICAL PATHOLOGY Specimen originated from [facility] Specimen #: [id number] Submitting Physician: ALLISON ORO FINAL DIAGNOSIS Liver cyst wall, excision (A) - Simple biliary-type cyst with associated fibrosis. . [facility] 11/26/2019 Shawn Hutchinson M.D., Ph.D. (Electronic Signature) [...] thickness. No excrescences or papillations are identified. Land Survey Technician sections are submitted in seven cassettes. LINA/carmen 11/21/2019 Gross examination performed at [facility], [address] [place] [address] Date of Report: 11/27/2019 Date of Procedure: 11/21/2019 Date of Receipt: 11/21/2019 Submitted by: ALLISON ORO Location: [facility] Diagnostic interpretation performed at [place] [address]. CLIA Number: [id number] [facility] Wound Culture/Stainon 2019 Wound Culture/Stain Sp. Request/Comment: - Eswab Smear Result - No organisms seen No Polymorphonuclear Leukocytes Culture Result - No growth 3 days [facility] Comment on above: Performed By: #### W CUL ####[facility] [place], [place] [phone] Wound Culture/Stain Sp. Request/Comment: - Eswab Smear Result - No organisms seen No Polymorphonuclear Leukocytes Culture Result - No growth 3 days [facility] Comment on above: Performed By: #### W CUL ####[facility] [place], [place] [phone] Confirm Blood Typeon 020 ABO/RH(D) Positive [facility] FUI50sx 11-18-2019 ECG01 NAME : RUPAL MORELOS PID : [id number] : 1950 Gender : Female Race : ORD : [id number] Procedure Date : Nov 18 2019 13:19:19 [...] ms QTC Calculation(Bazett) : 412 ms P Marianna : -2 degrees R Marianna : 51 degrees T Marianna : -1 degrees Test Reason : Location : 49 : [facility] Overread By : DARON NAVARRO M.D. Edited By : DARON NAVARRO M.D. Referred By : BRABIE BURTON Acquired by : AMIRA WALLACE [facility] HOSPon 09-18-2019 HOSP Patient:Pola Morelos ee n M MRN: Height:5' 6.5 [patient reported[(1.689 m) Weight:152 lb (68.947 kg) Outpatient Medications as of 11/21/19: vit A-vit C-vit T-lfuf-ptktlg (EYE VITAMIN AND MINERALS) 7,160-113-100 njtd-ra-acso tab timolol maleate (TIMOPTIC) 0.5 % ophthalmic [...] notes entered within the past 30 days [facility] Reminderson 04-15-2019 Reminders - From: Aurora Medina CMA To: [facility] - Reminders/Recalls; Sent: 12/04/2018 12:26:41 EDT Show up: 03/04/2019 12:26:00 EDT Subject: 2018 RECALL Due Date/Time: 04/20/2019 12:26:00 EST Reminder/Recall Colonoscopy recall [address] Azevedo Due 04/20/19 First Recall Letter Sent Clp Second Recall Letter [facility] Vital Signs Date Time Vital Sign Value Performing Clinician Facility 02-11-2024 11:09-0400 Body height 168.9 cm Allison Oro MD Work Phone: [facility] 02-11-2024 11:09-0400 Body mass index (BMI) [Ratio] 23.08 kg/m2 Allison Oro MD Work Phone: [facility] 02-11-2024 11:09-0400 Body temperature 96.91 [degF] Allison Oro MD Work Phone: [facility] 02-11-2024 11:090400 Body weight 65.86 kg Allison Oro MD Work Phone: [facility] 02-11-2024 11:09-0400 Diastolic blood pressure 68 mm[Hg] Allison Oro MD Work Phone: [facility] 02-11-2024 11:09-0400 Heart rate 83 /min Allison Oro MD Work Phone: [facility] 02-11-2024 11:09-0400 Systolic blood pressure 130 mm[Hg] Allison Oro MD Work Phone: [facility] 05-09-2023 12:40-0500 Body height 165.1 cm Park Carias Other [facility] Other 05-09-2023 12:40-0500 Body mass index (BMI) [Ratio] 22.46 kg/m2 Park Carias Other [facility] Other 05-09-2023 12:40-0500 Body temperature 98 [degF] Park Carias Other [facility] Other 05-09-2023 12:40-0500 Body weight 61.24 kg Park Carias Other [facility] Other 05-09-2023 12:40-0500 Diastolic blood pressure 65 mm[Hg] Park Carias Other [facility] Other 05-09-2023 12:40-0500 Respiratory rate 18 /min Park Carias Other [facility] Other 05-09-2023 12:40-0500 SaO2% (BldA) [Mass fraction] 98 % Park Carias Other [facility] Other 05-09-2023 12:40-0500 Systolic blood pressure 133 mm[Hg] Park Carias Other [facility] Other Encounters Encounter Date Encounter Type Care Provider Facility Start: 02-11-2024 End: 02-11-2024 ambulatory ARDEN LOPES [place] Facility:[facility] Start: 02-11-2024 End: 02-11-2024 Patient encounter procedure Allison Oro MD Work Phone: General Surgery Comment on above: Congenital cystic di sease of liver [Q44.6] (Primary Dx) Start: 10-18-2023 End: 10-18-2023 ambulatory JOHN QUIROZ Not Available Start: 07-13-2023 Bamboo flowsheet Gracie LARIOS Work [...] keratosis Start: 05-09-2023 End: 05-09-2023 ambulatory Park Aretha Other [facility] Other Start: 05-09-2023 Office outpatient ne w 20 minutes Park Carias [facility] Procedures Date Procedure Procedure Detail Performing Clinician Start: 07-13-2023 End: 07-13-2023 CRYOTHERAPY SKIN LESION Gracie LARIOS Work Phone: Start: 11-18-2019 Antibody screen Plan of Treatment Date Care Activity Detail Author Start: 02-15-2026 Urine microalbumin profile DTaP,Tdap,Td Vaccine (2 - Td or Tdap) [facility] Start: 07-14-2024 End: 07-14-2024 Patient encounter procedure 07/14/2024 10:50 AM EST Office Visit [facility] [address] [place] [address] Gracie Luna PA [address] [place], [place] [id number] [facility] Start: 02-03-2024 Covid-19 Vaccine ( season) Covid-19 Vaccine ( season) [facility] Start: 02-03-2024 Influenza vaccination Influenza Vacc ine (#1) [facility] Start: 07-13-2023 End: 07-13-2023 Patient encounter procedure 07/13/2023 11:50 AM EST Office Visit [facility] [address] [place] [address] Gracie Luna PA [address] [place] [address] Arrived [facility] Comment on above: Arrived Start: 06-04-2023 Advance Directive Discussion Advance Directive Discussion [facility] Start: 02-02-2023 Influenza vaccination Influenza Vacc ine (#1) [facility] Start: 2013 Pneumococcal Vaccine : 65+ (1 of 1 - PCV) Pneumococcal Vaccine: 65+ (1 of 1 - PCV) [facility] Start: 2013 Pneumococcal Vaccine : 65+ Years (1 - PCV) Pneumococcal Vaccine: 65+ Years (1 - PCV) [facility] Start: 2008 RSV Vaccine (1 - 1-d ose 60+ series) RSV Vaccine (1 - 1-dose 60+ series) [facility] Start: 1993 Diabetes Screening Diabetes Screenin g [facility] Start: 1993 Lipid panel Lipid Screening [facility] Start: 1993 Screening for malign ant neoplasm of colon [facility] Start: 1966 Anxiety Screening Anxiety Screening [facility] Start: 1966 Depression Screening Depression Scre ening [facility] Start: 1966 Hepatitis C screening Hepatitis C Sc reening [facility] Start: 1950 Screening for malign ant neoplasm of colon [facility] Healthcare Payers Date Payer Category Payer Private Health Insurance [id number] 2020 Unknown [id number] 2018 Unknown [id number] 2013 Medicare [id number] 2.1 [id number] 2013 Medicare [id number] 1950 Unknown [id number] 1950 Unknown [id number] Social History Date Type Detail Facility Unknown if ever smoked [facility] Other Start: 07-13-2023 End: 02-11-2024 Sex Assigned At [employer] Other Tobacco smoking stat [facility] Tobacco smoking consumption unknown [facility] Healthcare Start: 1950 Sex Assigned At Female [facility] Start: 07-12-2023 Gender identity Identifies as female gender (finding) [facility] Start: 07-13-2023 End: 02-11-2024 Tobacco smoking status NHIS Never smoked tobacco [facility] Start: 07-13-2023 End: 02-11-2024 Tobacco use and exposure Smokeless tobacco non-user [facility] Start: 07-13-2023 End: 02-11-2024 History of Social function [facility] Start: 02-11-2024 Alcoholic beverage intake Current drinker of alcohol (finding) [facility] How often to you hav e a drink containing alcohol? Monthly or less [facility] Average Number of Drinks Not on file [facility] Start: 11-17-2019 Alcohol Comment less than 1 drink per week [facility] Start: 1950 Sex assigned at Not on file [facility] Nurse Note 02-11-2024 Raissa Shook LPN - 02/11/2024 11:07 AM EDT Note Date & Type Note Facility 02-11-2024 Nurse Note What is the reason for your visit today? liver cyst Who is your referring physician? DO [place] Are you having poor oral intake? NO Have you had unintentional weight loss of 15 lbs/7 Kg in the last 3-6 months? NO Bowels: regular patient declined biochemistry specialist Raissa Shook LPN [facility] Nurse Note 02-11-2024 Raissa Shook LPN - 02/11/2024 11:07 AM EDT Note Date & Type Note Facility 02-11-2024 Nurse Note What is the reason for your visit today? liver cyst Who is your referring physician? DO [place] Are you having poor oral intake? NO Have you had unintentional weight loss of 15 lbs/7 Kg in the last 3-6 months? NO Bowels: regular patient declined biochemistry specialist Raissa Shook LPN documented in this encounter [facility] History of Present illness Narrative 02-11-2024 Allison Oro MD - 02/11/2024 11:00 AM EDT Note Date & Type Note Facility 02-11-2024 History of Presen t illness Narrative HISTORY AND PHYSICAL EXAMINATION SERVICE DATE: 02/11/2024 SERVICE TIME: 11:14 AM PRIMARY CARE PHYSICIAN: Arden Martinez MD, DO Attending Surgeon Patient here to review follow-up imaging of her liver She is s/p lap cyst drainage 4 years ago Minimal current symptoms Imaging with few small residual cysts No surgery recommended Follow-up on a prn basis I spent 15 minutes in the visit, with more than 50% of the total [id number] time of the visit in counseling / coordination of care. Allison Oro MD, PhD Subjective CHIEF COMPLAINT: Liver cysts. HPI: This is a 73 year old female who presents with history of liver cyst On November 21, 2019 she underwent a laparoscopy and cyst fenestration of right lobe liver cyst. She reports she was evaluated by Dr. Juan DO because she was having RUQ pain when bending down. She states the pain is sharp when she is in this bending position. November FINAL DIAGNOSIS Liver cyst wall, excision (A) - Simple biliary-type cyst with associated fibrosis. . [facility] [place] 11/26/2019 Shawn Hutchinson M.D., Ph.D. 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 GENERAL: No weight loss, malaise or fevers RESPIRATORY: + chronic cough. No SOB. Negative for cough, hemoptysis, wheezing, COPD, dyspnea. CARDIOVASCULAR: + HLD. Negative for chest pain, leg swelling, CHF or palpitations GI: No nausea, vomiting, or diarrhea and No heartburn or reflux symptoms : No history of dysuria, frequency or incontinence MUSCULOSKELETAL: + lower back pain related to arthritis. Negative for joint pain or swelling, back pain or muscle pain SKIN: Negative for lesions, rash, and itching PSYCH: Negative for sleep disturbance, mood disorder and recent psychosocial stressors HEMATOLOGY/LYMPHOLOGY: Negative for prolonged bleeding, bruising easily or swollen nodes ENDOCRINE: Negative for cold or heat intolerance, polyuria, polydipsia and goiter NEURO: No history of headaches, syncope, paralysis, seizures or tremors Objective PHYSICAL EXAM: Physical Exam Performed: GENERAL: Alert, no distress, cooperative LUNGS: Lungs clear to auscultation, Good diaphragmatic excursion CARDIAC: Normal S1 and S2; no rubs, murmurs, or gallops ABDOMEN: Abdomen soft, non-tender, BS normal, No masses or organomegaly EXTREMITIES: Extremities normal, no deformities, edema, clubbing or skin discoloration. Good capillary refill., No ulcers PULSES: 2+ radial, 2+ carotid The remainder of the physical exam is noncontributory. BP 130/68 Pulse 83 Temp (Src) 96.9 (Temporal) Ht 5' 6.5 (1.69m) Wt 145 lb 3.2 oz (65.9kg) BMI 23.09 kg/(m^2). DATA: Diagnostic tests reviewed for today's visit: Most recent labs and imaging results. Assessment/Plan Betina Morelos is a 73 year old female with history of simple biliary liver cyst s/p laparoscopy and cyst fenestration of right lobe liver cyst. SIGNATURE: Anh Bailey PA-C PATIENT NAME: Betina Morelos DATE: February 11, 2024 TIME: 11:43 AM documented in this encounter [facility] Progress note 02-11-2024 Note Date & Type Note Facility 02-11-2024 Note HNO ID: [id number] Author: ALLISON ORO MD Service: ? Author Type: Physician Type: Progress Notes Filed: 02/11/2024 11:45 Note Text: HISTORY AND PHYSICAL EXAMINATION SERVICE DATE: 02/11/2024 SERVICE TIME: 11:14 AM PRIMARY CARE PHYSICIAN: Arden Martinez MD, DO Attending Surgeon Patient here to review follow-up imaging of her liver She is s/p lap cyst drainage 4 years ago Minimal current symptoms Imaging with few small residual cysts No surgery recommended Follow-up on a prn basis I spent 15 minutes in the visit, with more than 50% of the total [id number]-gk-[id number] time of the visit in counseling / coordination of care. Allison Oro MD, PhD Subjective CHIEF COMPLAINT: Liver cysts. HPI: This is a 73 year old female who presents with history of liver cyst On November 21, 2019 she underwent a laparoscopy and cyst fenestration of right lobe liver cyst. She reports she was evaluated by Dr. Juan DO because she was having RUQ pain when bending down. She states the pain is sharp when she is in this bending position. November FINAL DIAGNOSIS Liver cyst wall, excision (A) - Simple biliary-type cyst with associated fibrosis. . [facility] [place] 11/26/2019 Shawn Hutchinson M.D., Ph.D. 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 GENERAL: No weight loss, malaise or fevers RESPIRATORY: + chronic cough. No SOB. Negative for cough, hemoptysis, wheezing, COPD, dyspnea. CARDIOVASCULAR: + HLD. Negative for chest pain, leg swelling, CHF or palpitations GI: No nausea, vomiting, or diarrhea and No heartburn or reflux symptoms : No history of dysuria, frequency or incontinence MUSCULOSKELETAL: + lower back pain related to arthritis. Negative for joint pain or swelling, back pain or muscle pain SKIN: Negative for lesions, rash, and itching PSYCH: Negative for sleep disturbance, mood disorder and recent psychosocial stressors HEMATOLOGY/LYMPHOLOGY: Negative for prolonged bleeding, bruising easily or swollen nodes ENDOCRINE: Negative for cold or heat intolerance, polyuria, polydipsia and goiter NEURO: No history of headaches, syncope, paralysis, seizures or tremors Objective PHYSICAL EXAM: Physical Exam Performed: GENERAL: Alert, no distress, cooperative LUNGS: Lungs clear to auscultation, Good diaphragmatic excursion CARDIAC: Normal S1 and S2; no rubs, murmurs, or gallops ABDOMEN: Abdomen soft, non-tender, BS normal, No masses or organomegaly EXTREMITIES: Extremities normal, no deformities, edema, clubbing or skin discoloration. Good capillary refill., No ulcers PULSES: 2+ radial, 2+ carotid The remainder of the physical exam is noncontributory. BP 130/68 Pulse 83 Temp (Src) 96.9 (Temporal) Ht 5' 6.5 (1.69m) Wt 145 lb 3.2 oz (65.9kg) BMI 23.09 kg/(m2). DATA: Diagnostic tests reviewed for today's visit: Most recent labs and imaging results. Assessment/Plan Betina Morelos is a 73 year old female with history of simple biliary liver cyst s/p laparoscopy and cyst fenestration of right lobe liver cyst. SIGNATURE: Anh Bailey PA-C PATIENT NAME: Betina Morelos DATE: February 11, 2024 TIME: 11:43 AM [facility] History of Present illness Narrative 07-13-2023 HARRIET [...] Examined Right arm Examined Patient wearing nail khmer, Denies dark streaks on toenails Left arm [...] limited to risks of scarring, darker or agriculture department chair pigmentary changes, recurrence, incomplete removal and infection. [...] limited to risks of scarring, darker or agriculture department chair pigmentary changes, recurrence, incomplete removal and infection. [...] Visit: 1 year documented in this encounter [facility] Healthcare Evaluation note 05-09-2023 Note Date [...] no improvement in 2 to 3 days [facility] Other Evaluation note Note Date & Type Note Facility Evaluation note Diagnosis Melanocytic nevus of trunk- Primary Benign neoplasm of skin of trunk, except scrotum Seborrheic keratosis Actinic keratosis Inflamed seborrheic keratosis documented in this encounter [facility] Evaluation note Note Date & Type Note Facility Evaluation note Diagnosis Preoperative examination- Primary Preoperative examination, unspecified Liver cyst Other specified disorders of liver Chronic cough Cough Hyperlipidemia, unspecified hyperlipidemia type Glaucoma, unspecified glaucoma type, unspecified laterality 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 documented in this encounter [facility] History general Narrative - Reported Note Date & Type Note Facility History general Narrative - Reported Type Medical History HYPERLIPIDEMIA Medical History MRI abdomen Surgical History SINUS SX 1999 [facility] Other Summary Purpose Family History No Family History Records FoundNo Family History Records FoundNo Family History Records FoundNo Family History Records Found Advance Directives No Advanced Directives Records FoundNo Advanced Directives Records FoundNo Advanced Directives Records FoundNo Advanced Directives Records Found Procedure Findings Note HNO ID: [id number] Author: Eleazar Martin Service: General Surgery Author Type: Resident Type: Brief Op Note Filed: 11/21/2019 9:09 AM Note Text: GENERAL SURGERY BRIEF OPERATIVE NOTE Betina Morelos [id number] LOG ID: [id number] Surgery/Procedure Date: 11/21/2019 Incision/Procedure Start Time: 7:55 AM Incision Close/Procedure End Time: 8:59 AM Surgeon(s)/Proceduralist(s) and Area Intelligence Technician(s): Surgeon(s) and Role: * Allison Oro - [...] section and content) DATE CREATED AUTHOR 04/15/2019 Anam Bharat [facility] DATE CREATED AUTHOR AUTHOR'S ORGANIZ ATION 12/24/2019 [facility] DATE CREATED AUTHOR AUTHOR'S ORGANIZ ATION 10/20/2023 [facility] EPIC DATE CREATED AUTHOR AUTHOR'S MARGO [place]ANDE 02/12/2024 [facility] REASON FOR VISIT (unrecogniz ed section and content) Reason Comments Skin Check Reason Comments New Patient Source Comments (unrecognize d section and content) In the event this informatio n is protected by the Federal Confidentiality of Alcohol and Drug Abuse Patient Records regulations: The Federal rules restrict any use of the information to criminally investigate or prosecute any alcohol or drug abuse patient.[facility] Care Teams (unrecognized sec tion and content) Donor Services Technician Relationship Specialty Start Date End Date Arden Martinez DO [address] [facility] [place] [address] PCP - General 12/23/07 Kenyon Tamayo [address] [facility] [address] [place] [address] Referring Gastroenterology 09/04/19 FOR RECORDS PERTAINING TO PATIENTS WHO ARE [...] BE BASED ON THE PRIMARY CLINICAL RECORDS. [employer] provides no warranty or guarantee of the accuracy or completeness of information in this document.
== END 2024-03-19 10:18 | disposition home or self-care (01) ==
LOC: VC 09:18
PROVIDERS: PCP Family Medicine; Visit Provider Radiology Diagnostic Radiology
DX: I83.813 Varicose veins of bilateral lower extremities with pain (principal)
CPT/HCPCS: 36478

== ENCOUNTER 2024-03-26 13:01 | Outpatient (OUT) | payer MEDICARE, SELFPAY ==
--- NOTE | 2024-03-26 13:04 | VEIN_ITS ---
Patient Name: KRISTY MORELOS MR#: [id number] : 1950 Exam Date: 03/26/2024 Ordering Doctor: DR AVIVA RUSHING M.D. RADIOLOGY REPORT PROCEDURE: FACILITY EST LMTD VEIN CENTER - OFFICE VISIT FOLLOW UP COMPARISON: None. PROGRESS NOTES: The patient reports improvement in leg symptoms. There has been interval reduction in varicosities. The patient has followed our recommendations to walk 20-30 minutes once or twice per day since the procedure. Physical exam demonstrates decrease in varicosities of the leg. Persistent varicosities are identified along the legs bilaterally. Review of the ultrasound performed the same day demonstrates occlusive thrombus extending throughout the treated vein(s), see separate report, consistent with a successful ablation. No thrombus extending into or beyond the saphenofemoral junction. The patient expressed a desire to proceed with treatment of remaining incompetent varicosities. The patient was informed that treatment was a process and would require several procedures/sessions. VEIN/ Facility EST TD IMPRESSION: 1. Successful ablation of the right great saphenous vein(s). 2. Persistent bilateral varicose veins and lower extremity symptoms. PLAN: 1. Endovenous laser ablation of left great saphenous vein. Nurse notes, history and physical were reviewed and confirmed, see attached forms. The nurse was present throughout the physical exam and consultation Dictated by: Roel Montez M.D. on 03/26/2024 at 13:52 Approved by: Roel Montez M.D. on 03/26/2024 at 13:53
--- NOTE | 2024-03-26 13:04 | VEIN_ITS ---
Patient Name: KRISTY MORELOS MR#: [id number] : 1950 Exam Date: 03/26/2024 Ordering Doctor: DR AVIVA RUSHING M.D. RADIOLOGY REPORT PROCEDURE: VC EXT VENOUS RT LMTD COMPARISON: None. INDICATIONS: I80.01 - Phlebitis and thrombophlebitis of superficial veins right leg TECHNIQUE: Lower extremity pelayo scale and Duplex Doppler evaluation of the deep venous system from the inguinal ligament through the calf veins. FINDINGS: REGION: Right lower extremity. THROMBI: Negative for DVT. Heat induced thrombus in GSV 1.6cm from SFJ and extends to distal lower leg. COMPRESSIBILITY: Choose one.Non-compressible segments corresponding to thrombus FLOW: Areas of no flow corresponding to thrombus OTHER: CONCLUSION: 1. Successful post ablation occlusion of the right great saphenous vein. Dictated by: Roel Montez M.D. on 03/26/2024 at 13:51 Approved by: Roel Montez M.D. on 03/26/2024 at 13:52
[2024-03-26 13:15] VITALS: BMI 22.4
--- NOTE | 2024-03-26 13:15 | V.VEINS.HP ---
Vital Signs 03/26/24 13:15 Height 5 ft 6 in Weight 63 kg BMI 22.4 Varicose Veins Patient in today for follow up ultrasound of right lower extremity following EVLT of right GSV completed on 03/19/24. Roel Castillo MD personally performed the services described in this documentation, as scribed by Fatou Cruz RDMS in my presence and it is both accurate and complete. Fatou Castillo RDMS, am scribing for, and in the presence of, Dr. Alexi Montez and in the presence of the patient. thigh: bilateral (symptoms equally bilateral), knee: bilateral, calf: bilateral, ankle: bilateral and ross: bilateral aching, cramping, dull and tender 2 20 years Worsened in recent months: Yes standing analgesics, elevating extremities, compression stockings and exercise Reports muscle spasms of leg, heaviness, limb pain, edema and leg edema History of lower extremity trauma: No Superficial thrombophlebitis: No Family history of varicose veins: yes Has patient had previous lower extremity venous surgery: No Patient has previously received the following treatment(s) for lower extremity varicose veins: Reports none Does patient have a history of : yes Does patient intend to have future pregnancies: no Has patient had lower extremity venous scan with relux testing: No Support hose used: Yes Problems walking or doing physical activity: Yes How does it affect you: often has to stop and rest and elevate legs/feet Do you walk much: Yes Do you stand much: Yes Review of Systems ROS Narrative Roel Castillo MD personally performed the services described in this documentation, as scribed by Fatou Cruz RDMS in my presence and it is both accurate and complete. Fatou Castillo RDMS, am scribing for, and in the presence of, Dr. Alexi Montez and in the presence of the patient. Status of ROS 10 or more systems reviewed and unremarkable except as noted in history and below Cardiovascular Reports: edema Integumentary/Breast Reports: skin tenderness, skin swelling and changes in skin color Neurological Reports: numbness in extremities and weakness in extremities [facility] Medical History (Updated 03/26/24 @ 13:15 by Fatou Cruz) Phlebitis and thrombophlebitis of superficial vessels of right lower extremity ?I80.01 - Phlebitis and thrombophlebitis of superficial vessels of right lower extremity (ICD-10) Foreign object left in body during procedure ?T81.509A - Unspecified complication of foreign body accidentally left in body following unspecified procedure, initial encounter (ICD-10) Cataract ?H26.9 - Unspecified cataract (ICD-10) Glaucoma ?H40.9 - Unspecified glaucoma (ICD-10) Peripheral neuropathy ?G62.9 - Polyneuropathy, unspecified (ICD-10) Pain due to varicose veins of both lower extremities ?I83.813 - Varicose veins of bilateral lower extremities with pain (ICD-10) Surgical History (Updated 03/19/24 @ 10:16 by Vernon Garland) Status post laser ablation of incompetent vein ?Z98.890 - Other specified postprocedural states (ICD-10) Social History (Updated 03/14/24 @ 08:42 by Vernon Garland) Within the past year, how often did you have a drink containing alcohol: monthly or less Smoking status: Never smoker Non-prescribed substance use: denies use Meds Home Medications and Allergies Allergies Allergy/AdvReac Type Severity Reaction Status Date / Time naproxen (From Aleve) Allergy Intermediate Hives Verified 03/14/24 08:43 Exam Narrative Exam Narrative: Roel Castillo MD personally performed the services described in this documentation, as scribed by Fatou Cruz RDMS in my presence and it is both accurate and complete. IFatou RDMS, am scribing for, and in the presence of, Dr. Alexi Montez and in the presence of the patient. Constitutional Documenting provider has reviewed patient's vital signs: yes Common normals: oriented x3 Cardio Peripheral pulses: posterior tibial pulses present and dorsalis pedis pulses present Extremity Common normals: normal capillary refill General: edema Right lower extremity: lower leg Right lower leg: inspection and palpation Left lower extremity: lower leg Left lower leg: inspection and palpation Neuro Common normals: oriented x3 Results Imaging Venous US: Radiologist's impression: Heat induced thrombus in right GSV 1.6 cm from SFJ and extends to distal lower leg. Roel Castillo MD personally performed the services described in this documentation, as scribed by Fatou Cruz RDMS in my presence and it is both accurate and complete. I, Fatou Cruz RDMS, am scribing for, and in the presence of, Dr. Alexi Montez and in the presence of the patient. Assessment and Plan Assessment and Plan (1) Phlebitis and thrombophlebitis of superficial vessels of right lower extremity: Plan Plan is for patient to return for EVLT of left GSV on I, Roel Montez MD personally performed the services described in this documentation, as scribed by Fatou Cruz RDMS in my presence and it is both accurate and complete. I, Fatou Cruz RDMS, am scribing for, and in the presence of, Dr. Alexi Montez and in the presence of the patient.
--- OUTSIDE RECORDS SUMMARY | 2024-03-26 13:23 | XMS_ITS | CCD ---
Author Organization [facility] Inform ion Partnership [facility] Care Team Providers Care Distribution Center Administrator Name Role Phone Park Carias Unavailable Unavailable Primary Care Provider UnavailGRACIE Rodriguez Attending Unavailable JOHN QUIROZ Attending Unavailable Arden Martinez DO Primary Care Provider Kenyon Tamayo Unavailable ARDEN MARTINEZ Primary Care Unavailab ALLISON Bocanegra Attending Unava ilable Allergies Allergy Classification Reported Allergen(s) Allergy Type Date of Onset Reaction(s) Facility (3 sources) Naproxen Drug Allergy 01-16-2012 [facility] [place] Other (2 sources) Naproxen; Translations: [NAPROXEN SODIUM] Drug Allergy 01-16-2012 [facility] Medications Current Medications Medication Drug Class(es) Dates [...] Once a day Active vit A-vit C-vit F-boel-jigpj r (EYE VITAMIN AND MINERALS) 7,160-113-100 kfnf-ng-crlq tab (1 source) vit A-vit C-vit N-oqek-xboblz (EYE VITAMIN AND MINERALS) 7,160-113-100 gsvd-qc-dkzn tab Eye Vitamin and Minerals Active Completed/Discontinued [...] Test Name Value Interpretation Reference Range Facility [facility] 02-11-2024 CNOV Office Visit ([facility] ) BETINA MORELOS ([id number]) 1950 F Date Time Provider Department 02/11/24 11:00 AM ALLISON ORO [facility] During your visit today, we recorded the [...] with more than 50% of the total opth-un-xcqr time of the visit in counseling / coordination of care. Allison rOo MD, PhD Subjective CHIEF COMPLAINT: Liver cysts. [...] Simple biliary-type cyst with associated fibrosis. . [facility] 11/26/2019 Shawn Hutchinson M.D., Ph.D. (Electronic Signature) [...] 3-6 months? 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 Normal [facility] No Panel Informationon 07-13 [facility] ALLIED HEALTHon 11-21-2019 ALLIED HEALTH HNO ID: [id number] Author: Ema Ferrer (Chaplain) Service: Healing Service Author Type: Jig Operator Type: Allied Health Filed: 11/21/2019 7:57 AM Note Text: SPIRITUAL CARE Spiritual Care Visit Record Name: Betina Morelos Date: November 21, 2019 Type of Visit: Preoperative Prayer/Visit Visit was with (pt, dtr). Ministry Provided During Visit: Spiritual Presence / Support Notes: I introduced self. Pt is [place]. I gave her a blessing. Pt thanked for visit. Referrals: No referral made Will See: As Needed Only Follow-up Notes: Informed patient and family of Jig Operator availability Jig Operator Signature: Ema Ferrer Jig Operator Student To contact the Spiritual Care Department: Please call [phone] or Page the On-Call Jig Operator at pager [phone] Thank you for the opportunity to be of service. This is an electronically created document. IF PRINTED, PLEASE DO NOT REMOVE FROM THE CHART OR MODIFY PRINTED COPY. [facility] ANES Nerissa 11-21-2019 ANES POST HNO ID: [id number] Author: Aimee Quintero I Service: Anesthesiology Author [...] DATE: November 21, 2019 TIME: 12:19 PM [facility] ANES PREOPon 11-21-2019 ANES PREOP HNO ID: [id number] Author: Aimee Quintero I Service: Anesthesiology Author [...] Encounter Medication Sig - vit A-vit C-vit T-unqx-euiwsa (EYE VITAMIN AND MINERALS) 7,160-113-100 beld-fj-zaql tab Eye Vitamin and Minerals - timolol [...] November 21, 2019 TIME: 7:02 AM Normal [facility] CYTOLOGYon 11-21-2019 CYTOLOGY Specimen originated from [facility] Specimen #: [id number] Submitting Physician: ALLISON ORO SPECIMEN SUBMITTED A: [...] CYST FLUID, FINE NEEDLE ASPIRATE THIN PREP Non-Paper Cutting Machine Operator B: ABDOMINAL FLUID (THINPREP AND CELL BLOCK) THIN PREP Non-Paper Cutting Machine Operator, CELL BLOCK, H&E, Initial Date of Report: 11/21/2019 Date of Procedure: 11/21/2019 Date of Receipt: 11/21/2019 Submitted by: ALLISON ORO Location: [facility] Diagnostic interpretation performed at [facility], [address] [place] [address], [place] [address]. CLIA Number: [id number] [facility] HISTORY PHYSICALon 0 HISTORY PHYSICAL HNO ID: [id number] Author: Allison Oro Service: General Surgery Author [...] DATE: November 21, 2019 TIME: 7:13 AM PAGER:[phone] [facility] NURSING PROGon 11-21-2019 NURSING PROG HNO ID: [id number] Author: Yomaira DuranRn) KAILYN Montano Service: ? [...] note was completed by: Yomaira Montano RN [facility] NURSING PROG HNO ID: [id number] Author: Zarina (Rn) KAILYN Brownlee Service: ? [...] note was completed by: Hernan Brownlee RN [facility] OPERATIVE NOon 11-21-2019 OPERATIVE NO HNO ID: [id number] Author: Allison Oro Service: General Surgery Author Type: Physician Type: Operative Report Filed: 11/24/2019 10:33 AM Note Text: [facility] - Operative Report BETINA MORELOS : 1950 AGE: 69. SEX: F PATIENT TYPE: I HOSP SVC: GENS LOCATION: [facility] ATTENDING PHYSICIAN: Allison Oro MD CSN NUMBER: [id number] DATE OF SURGERY/PROCEDURE: 11/21/2019 INCISION/PROCEDURE START TIME: 7:55 am INCISION CLOSE/PROCEDURE END TIME: 8:59 am PREOPERATIVE DIAGNOSIS: Symptomatic right lobe liver cyst. POSTOPERATIVE DIAGNOSIS: Symptomatic right lobe liver cyst. SURGEON: Allison Oro MD FEED MANAGER: No Additional Staff SURGERY/PROCEDURE: Laparoscopy and cyst [...] portions of the operation. Allison Oro MD CTS:[id number] /[id number] cc: [facility] PROGRESSon 11-21-2019 PROGRESS HNO ID: [id number] Author: Allison Oro Service: General Surgery Author Type: Physician Type: Progress Notes Filed: 11/21/2019 7:35 AM Note Text: labs from Jul 2019 Na 140 K 4.5 academic advisor 0.76 Alt 7 Ast 15 T Bili 1.2 WBC 5.3 Hgb 13.7 Hct 43.3 Plt 205 [facility] PT EDon 11-21-2019 PT ED HNO ID: [id number] Author: Yomaira (Rn) KAILYN Montano Service: ? [...] None Electronically Signed By: Yomaira Montano RN [facility] SURGICAL PATHOLOGYon 020 SURGICAL PATHOLOGY Specimen originated from [facility] Specimen #: [id number] Submitting Physician: ALLISON ORO FINAL DIAGNOSIS Liver cyst wall, excision (A) - Simple biliary-type cyst with associated fibrosis. . [facility] 11/26/2019 Shawn Hutchinson M.D., Ph.D. (Electronic Signature) [...] thickness. No excrescences or papillations are identified. Educational Administrator sections are submitted in seven cassettes. LINA/carmen 11/21/2019 Gross examination performed at [facility], [address] [place] [address] Date of Report: 11/27/2019 Date of Procedure: 11/21/2019 Date of Receipt: 11/21/2019 Submitted by: ALLISON ORO Location: [facility] Diagnostic interpretation performed at [place] [address]. CLIA Number: [id number] [facility] Wound Culture/Stainon 2019 Wound Culture/Stain Sp. Request/Comment: - Eswab Smear Result - No organisms seen No Polymorphonuclear Leukocytes Culture Result - No growth 3 days [facility] Comment on above: Performed By: #### W CUL ####[facility], [place] [phone] Wound Culture/Stain Sp. Request/Comment: - Eswab Smear Result - No organisms seen No Polymorphonuclear Leukocytes Culture Result - No growth 3 days [facility] Comment on above: Performed By: #### W CUL ####[facility] [place], [place] [phone] Confirm Blood Typeon 020 ABO/RH(D) Positive [facility] [id number] 11-18-2019 ECG01 NAME : RUPAL MORELOS PID : [id number] : 1950 Gender : Female Race : ORD : [id number] Procedure Date : Nov 18 2019 13:19:19 [...] ms QTC Calculation(Bazett) : 412 ms P [place] : -2 degrees R [place] : 51 degrees T [place] : -1 degrees Test Reason : Location : 47 : PENDING SALE TO [facility] Overread By : DARON NAVARRO M.D. Edited By : DARON NAVARRO M.D. Referred By : BARBIE BURTON Acquired by : AMIRA WALLACE [facility] HOSPon 09-18-2019 HOSP Patient:Pola Morelos ee n M MRN: Height:5' 6.5 [patient reported[(1.689 m) Weight:152 lb (68.947 kg) Outpatient Medications as of 11/21/19: vit A-vit C-vit M-xdke-ojrigy (EYE VITAMIN AND MINERALS) 7,160-113-100 dccf-cp-wwox tab timolol maleate (TIMOPTIC) 0.5 % ophthalmic [...] notes entered within the past 30 days [facility] Reminderson 04-15-2019 Reminders - From: Aurora Medina CMA To: [facility] - Reminders/Recalls; Sent: 12/04/2018 12:26:41 EDT Show up: 03/04/2019 12:26:00 EDT Subject: 2018 RECALL Due Date/Time: 04/20/2019 12:26:00 EST Reminder/Recall Colonoscopy recall [address] Azevedo Due 04/20/19 First Recall Letter Sent Clp Second Recall Letter [facility] Vital Signs Date Time Vital Sign Value Performing Clinician Facility 02-11-2024 11:09-0400 Body height 168.9 cm Allison Oro MD Work Phone: [facility] 02-11-2024 11:09-0400 Body mass index (BMI) [Ratio] 23.08 kg/m2 Allison Oro MD Work Phone: [facility] 02-11-2024 11:09-0400 Body temperature 96.91 [degF] Allison Oro MD Work Phone: [facility] 02-11-2024 11:090400 Body weight 65.86 kg Allison Oro MD Work Phone: [facility] 02-11-2024 11:09-0400 Diastolic blood pressure 68 mm[Hg] Allison Oro MD Work Phone: [facility] 02-11-2024 11:09-0400 Heart rate 83 /min Allison Oro MD Work Phone: [facility] 02-11-2024 11:09-0400 Systolic blood pressure 130 mm[Hg] Allison Oro MD Work Phone: [facility] 05-09-2023 12:40-0500 Body height 165.1 cm Park Carias Other [facility] Other 05-09-2023 12:40-0500 Body mass index (BMI) [Ratio] 22.46 kg/m2 Park Carias Other [facility] Other 05-09-2023 12:40-0500 Body temperature 98 [degF] Park Carias Other [facility] Other 05-09-2023 12:40-0500 Body weight 61.24 kg Park Carias Other [facility] Other 05-09-2023 12:40-0500 Diastolic blood pressure 65 mm[Hg] Park Carias Other [facility] Other 05-09-2023 12:40-0500 Respiratory rate 18 /min Park Carias Other [facility] Other 05-09-2023 12:40-0500 SaO2% (BldA) [Mass fraction] 98 % Park Carias Other [facility] Other 05-09-2023 12:40-0500 Systolic blood pressure 133 mm[Hg] Park Carias Other [facility] Other Encounters Encounter Date Encounter Type Care Provider Facility Start: 02-11-2024 End: 02-11-2024 ambulatory ARDEN LOPES [place] Facility:[facility] Start: 02-11-2024 End: 02-11-2024 Patient encounter procedure [...] 05-09-2023 End: 05-09-2023 ambulatory Park Aretha Other [facility] Other Start: 05-09-2023 Office outpatient ne w 20 minutes Park Carias [facility] Procedures Date Procedure Procedure Detail Performing Clinician Start: 07-13-2023 End: 07-13-2023 CRYOTHERAPY SKIN LESION Gracie LARIOS Work Phone: Start: 11-18-2019 Antibody screen Plan of Treatment Date Care Activity Detail Author Start: 02-15-2026 Urine microalbumin profile DTaP,Tdap,Td Vaccine (2 - Td or Tdap) [facility] Start: 07-14-2024 End: 07-14-2024 Patient encounter procedure 07/14/2024 10:50 AM EST Office Visit [facility] [address] [place] [address] Gracie Luna PA [address] [place], [place] [id number] [facility] Start: 02-03-2024 Covid-19 Vaccine ( season) Covid-19 Vaccine ( season) [facility] Start: 02-03-2024 Influenza vaccination Influenza Vacc ine (#1) [facility] Start: 07-13-2023 End: 07-13-2023 Patient encounter procedure 07/13/2023 11:50 AM EST Office Visit [facility] [address] [place] [address] Gracie Luna PA [address] [place] [address] Arrived [facility] Comment on above: Arrived Start: 06-04-2023 Advance Directive Discussion Advance Directive Discussion [facility] Start: 02-02-2023 Influenza vaccination Influenza Vacc ine (#1) [facility] Start: 2013 Pneumococcal Vaccine : 65+ (1 of 1 - PCV) Pneumococcal Vaccine: 65+ (1 of 1 - PCV) [facility] Start: 2013 Pneumococcal Vaccine : 65+ Years (1 - PCV) Pneumococcal Vaccine: 65+ Years (1 - PCV) [facility] Start: 2008 RSV Vaccine (1 - 1-d ose 60+ series) RSV Vaccine (1 - 1-dose 60+ series) [facility] Start: 1993 Diabetes Screening Diabetes Screenin g [facility] Start: 1993 Lipid panel Lipid Screening [facility] Start: 1993 Screening for malign ant neoplasm of colon [facility] Start: 1966 Anxiety Screening Anxiety Screening [facility] Start: 1966 Depression Screening Depression Scre ening [facility] Start: 1966 Hepatitis C screening Hepatitis C Sc reening [facility] Start: 1950 Screening for malign ant neoplasm of colon [facility] Payers Date Payer Category Payer Private Health Insurance [id number] 2020 Unknown [id number] 2018 Unknown [id number] 2013 Medicare [id number] 2.1 [id number] 2013 Medicare [id number] 1950 Unknown [id number] 1950 Unknown [id number] Social History Date Type Detail Facility Unknown if ever smoked [facility] Other Start: 07-13-2023 End: 02-11-2024 Sex Assigned At [facility] Other Tobacco smoking stat [facility] Tobacco smoking consumption unknown [facility] Start: 1950 Sex Assigned At Female [facility] Start: 07-12-2023 Gender identity Identifies as female gender (finding) [facility] Start: 07-13-2023 End: 02-11-2024 Tobacco smoking status NHIS Never smoked tobacco [facility] Start: 07-13-2023 End: 02-11-2024 Tobacco use and exposure Smokeless tobacco non-user [facility] Start: 07-13-2023 End: 02-11-2024 History of Social function [facility] Start: 02-11-2024 Alcoholic beverage intake Current drinker of alcohol (finding) [facility] How often to you hav e a drink containing alcohol? Monthly or less [facility] Average Number of Drinks Not on file [facility] Start: 11-17-2019 Alcohol Comment less than 1 drink per week [facility] Start: 1950 Sex assigned at Not on file [facility] Nurse Note 02-11-2024 Raissa Shook [...] 3-6 months? NO Bowels: regular patient declined program analyst Raissa Shook LPN [facility] Nurse Note 02-11-2024 Raissa Shook [...] 3-6 months? NO Bowels: regular patient declined program analyst Raissa Shook LPN documented in this encounter [facility] History of Present illness Narrative [...] with more than 50% of the total rerx-aw-wujr time of the visit in counseling / [...] Simple biliary-type cyst with associated fibrosis. . [facility] 11/26/2019 Shawn Hutchinson M.D., Ph.D. (Electronic Signature) [...] TIME: 11:43 AM documented in this encounter [facility] Progress note 02-11-2024 Note Date & Type Note Facility 02-11-2024 Note HNO ID: [id number] Author: ALLISON ORO MD Service: ? Author [...] with more than 50% of the total fvoc-sw-sork time of the visit in counseling / [...] Simple biliary-type cyst with associated fibrosis. . [facility] 11/26/2019 Shawn Hutchinson M.D., Ph.D. (Electronic Signature) [...] DATE: February 11, 2024 TIME: 11:43 AM [facility] History of Present illness Narrative 07-13-2023 HARRIET [...] Examined Right arm Examined Patient wearing nail tamazight, Denies dark streaks on toenails Left arm [...] limited to risks of scarring, darker or ship's master pigmentary changes, recurrence, incomplete removal and infection. [...] limited to risks of scarring, darker or ship's master pigmentary changes, recurrence, incomplete removal and infection. [...] Visit: 1 year documented in this encounter [facility] Evaluation note 05-09-2023 Note [...] no improvement in 2 to 3 days [facility] Other Evaluation note Note Date & Type [...] disease of liver documented in this encounter [facility] History general Narrative - Reported Note Date & Type Note Facility History general Narrative - Reported Type Medical History HYPERLIPIDEMIA Medical History MRI abdomen Surgical History SINUS SX 1999 [facility] Other Summary Purpose Family History No Family History Records FoundNo Family History Records FoundNo Family History Records FoundNo Family History Records Found Advance Directives No Advanced Directives Records FoundNo Advanced Directives Records FoundNo Advanced Directives Records FoundNo Advanced Directives Records Found Procedure Findings Note HNO ID: [id number] Author: Eleazar Martin Service: General Surgery Author Type: Resident Type: Brief Op Note Filed: 11/21/2019 9:09 AM Note Text: GENERAL SURGERY BRIEF OPERATIVE NOTE Betina Morelos [id number] LOG ID: [id number] Surgery/Procedure Date: 11/21/2019 Incision/Procedure Start Time: 7:55 AM Incision Close/Procedure End Time: 8:59 AM Surgeon(s)/Proceduralist(s) and Warehouse Guard(s): Surgeon(s) and Role: * Allison Oro - [...] and content) DATE CREATED AUTHOR 04/15/2019 [facility] DATE CREATED AUTHOR AUTHOR'S ORGANIZ ATION [facility]/24/2019 [facility] DATE CREATED AUTHOR AUTHOR'S ORGANIZ ATION 10/20/2023 [facility] EPIC DATE CREATED AUTHOR AUTHOR'S MARGO DESHPANDE 02/12/2024 [facility] REASON FOR VISIT (unrecogniz ed section and content) Reason Comments Skin Check Reason Comments New Patient Source Comments (unrecognize d section and content) In the event this informatio n is protected by the Federal Confidentiality of Alcohol and Drug Abuse Patient Records regulations: The Federal rules restrict any use of the information to criminally investigate or prosecute any alcohol or drug abuse patient.[facility] Care Teams (unrecognized sec tion and content) Distribution Center Administrator Relationship Specialty Start Date End Date Arden Martinez DO [address] [facility] [place] [address] PCP - General 12/23/07 Kenyon Tamayo [address] [facility] [address] [place] [address] Referring Gastroenterology 09/04/19 FOR RECORDS PERTAINING TO [...] BE BASED ON THE PRIMARY CLINICAL RECORDS. [email or web address] provides no warranty or guarantee of the accuracy or completeness of information in this document.
--- NOTE | 2024-03-26 13:30 | P.DS_ITS ---
Discharge Plan Discharge Disposition: Home, Self-Care Outpatient Diagnostics: VC Endovenous Ablation 1VeinLT (Routine) Timeframe: 1 Month Facility: [facility] - Location[facility] Ordered By: Roel Montez Follow Up Appointments: 04/03/24 Plan of Treatment: EVLT of left GSV EVLT Tumescent Anesthesia: 500 mL 0.9% NS with 20 mL 1% Lidocaine and 10 mL 8.4% NAHCO3 Buffered Local Anesthesia: 10 mL of 1% Lidocaine Buffered Print Language: Salvadorean Discharge Date/Time: 03/26/24 13:42
== END 2024-03-26 13:42 | disposition home or self-care (01) ==
PROVIDERS: PCP Radiology Diagnostic Radiology; Visit Provider Radiology Diagnostic Radiology
DX: I80.01 Phlebitis and thrombophlebitis of superficial vessels of right lower extremity (principal)
CPT/HCPCS: 93971; G0463

== ENCOUNTER 2024-04-10 08:49 | Outpatient (OUT) | payer MEDICARE, SELFPAY ==
--- NOTE | 2024-04-08 15:02 | V.VEINS.HP ---
Vital Signs 04/10/24 09:12 BP 116/68 BP Location Right Brachial BP Position Sitting BP Cuff Size Adult BP Source Manual Cuff Respiration 16 Pulse 76 Pulse Source Monitor Pulse Oximetry (%) 98 Oxygen Delivery Method Room Air Varicose Veins Patient in today for EVLT of left GSV Roel Castillo MD personally performed the services described in this documentation, as scribed by Vernon Garland RN in my presence and it is both accurate and complete. IVernon RN, am scribing for, and in the presence of, Dr. Roel Montez and in the presence of the patient. thigh: bilateral (symptoms equally bilateral), knee: bilateral, calf: bilateral, ankle: bilateral and ross: bilateral aching, cramping, dull and tender 2 20 years Worsened in recent months: Yes standing analgesics, elevating extremities, compression stockings and exercise Reports muscle spasms of leg, heaviness, limb pain, edema and leg edema History of lower extremity trauma: No Superficial thrombophlebitis: No Family history of varicose veins: yes Has patient had previous lower extremity venous surgery: No Patient has previously received the following treatment(s) for lower extremity varicose veins: Reports none Does patient have a history of : yes Does patient intend to have future pregnancies: no Has patient had lower extremity venous scan with relux testing: No Support hose used: Yes Problems walking or doing physical activity: Yes How does it affect you: often has to stop and rest and elevate legs/feet Do you walk much: Yes Do you stand much: Yes Review of Systems ROS Narrative Roel Castillo MD personally performed the services described in this documentation, as scribed by Vernon Garland RN in my presence and it is both accurate and complete. Vernon Castillo RN, am scribing for, and in the presence of, Dr. Roel Montez and in the presence of the patient. Status of ROS 10 or more systems reviewed and unremarkable except as noted in history and below Cardiovascular Reports: edema Integumentary/Breast Reports: skin tenderness, skin swelling and changes in skin color Neurological Reports: numbness in extremities and weakness in extremities [facility] Medical History (Updated 03/26/24 @ 13:15 by Fatou Cruz) Phlebitis and thrombophlebitis of superficial vessels of right lower extremity ?I80.01 - Phlebitis and thrombophlebitis of superficial vessels of right lower extremity (ICD-10) Foreign object left in body during procedure ?T81.509A - Unspecified complication of foreign body accidentally left in body following unspecified procedure, initial encounter (ICD-10) Cataract ?H26.9 - Unspecified cataract (ICD-10) Glaucoma ?H40.9 - Unspecified glaucoma (ICD-10) Peripheral neuropathy ?G62.9 - Polyneuropathy, unspecified (ICD-10) Pain due to varicose veins of both lower extremities ?I83.813 - Varicose veins of bilateral lower extremities with pain (ICD-10) Surgical History (Updated 04/10/24 @ 09:13 by Vernon Garland) Status post laser ablation of incompetent vein ?Z98.890 - Other specified postprocedural states (ICD-10) Status post laser ablation of incompetent vein ?Z98.890 - Other specified postprocedural states (ICD-10) Social History (Updated 03/14/24 @ 08:42 by Vernon Garland) Within the past year, how often did you have a drink containing alcohol: monthly or less Smoking status: Never smoker Non-prescribed substance use: denies use Meds Home Medications and Allergies Allergies Allergy/AdvReac Type Severity Reaction Status Date / Time naproxen (From Aleve) Allergy Intermediate Hives Verified 03/14/24 08:43 Exam Narrative Exam Narrative: Roel Castillo MD personally performed the services described in this documentation, as scribed by Vernon Garland RN in my presence and it is both accurate and complete. Vernon Castillo RN, am scribing for, and in the presence of, Dr. Roel Montez and in the presence of the patient. Constitutional Documenting provider has reviewed patient's vital signs: yes Common normals: oriented x3 Cardio Peripheral pulses: posterior tibial pulses present and dorsalis pedis pulses present Extremity Common normals: normal capillary refill General: edema Right lower extremity: lower leg Right lower leg: inspection and palpation Left lower extremity: lower leg Left lower leg: inspection and palpation Neuro Common normals: oriented x3 Assessment and Plan Assessment and Plan (1) Pain due to varicose veins of both lower extremities: Plan f/u evaluation with physician along with left leg limited u/s Roel Castillo MD personally performed the services described in this documentation, as scribed by Vernon Garland RN in my presence and it is both accurate and complete. I, Vernon Garland RN, am scribing for, and in the presence of, Dr. Roel Montez and in the presence of the patient. Procedures Procedure Instructions Procedures Plan of care: Risks and benefits of the procedure were discussed at length and informed written consent was obtained.? Time-out completed for verification of correct patient, procedure and site.? Staff present during time-out: Vernon Garland RN,? Roel Montez MD, [facility],RVT. Time Out Time__910 Patient prepped and procedure performed in usual sterile fashion. Risk of injury related to use of Diode laser and/or laser devices__CR___ ? Serial number of laser used :? [id number] Control panel self test performed, electrical cords in good condition, floor is dry, basin of water available, fire extinguisher in close proximity_CR__ Polycarbonate goggles available and Laser warning signs outside of doors___CR__ Eye protection provided to patient and staff in room_CR___ Use of laser retardant drapes and dull blackened instruments as directed__CR___ Use of nonflammable prep solutions and use of saline soaked sponges to protect tissues as indicated _CR___ Length __55 cm Laser operated by _Dr. Montez Physician verbal confirmation laser locked in place__CR__ Laser start time (date and time) __04/10/2024@_0926 Laser stop time(date and time) __04/10/2024@__0933 Danielle _8.0___ Average laser use ___3477____Joules Average laser use__435 seconds Pulse continuous ___CR_? Pulse intermittent ___ Amount of Tumescent used _275cc Evaluated patient for signs and symptoms of electrical injury __CR___ ? Skin clear at insertion site __CR___ Patient tolerated procedure well.? Left leg Coban dressing applied to access site.? Applied Left thigh high leg compression stocking. Will return on 04/17/2024 for Left leg limited venous ultrasound and exam. IRoel MD personally performed the services described in this documentation, as scribed by Vernon Garland RN in my presence and it is both accurate and complete. I, Vernon Garland RN, am scribing for, and in the presence of, Dr. Roel Montez and in the presence of the patient.
--- NOTE | 2024-04-08 15:11 | P.DS_ITS ---
Discharge Plan Discharge Disposition: Home, Self-Care Outpatient Diagnostics: [facility] Facility EST LMTD (Routine) Timeframe: 2 Weeks Facility: [facility] - Location: Vein Center Ordered By: James Davis VC EXT Venous LT Limited (Routine) Timeframe: 2 Weeks Facility: [facility] - Location: Vein Center Ordered By: James Davis Follow Up Appointments: 04/17/2024 Plan of Treatment: f/u evaluation with physician along with left leg limited u/s Patient Instructions: Endovenous Ablation (DC) Print Language: Hebrew Discharge Date/Time: 04/10/24 09:12
--- NOTE | 2024-04-08 15:12 | P.DS_ITS ---
Discharge Plan Discharge Disposition: Home, Self-Care Outpatient Diagnostics: VC Facility EST LMTD (Routine) Timeframe: 2 Weeks Facility: [facility] - Location: Vein Center Ordered By: James Davis VC EXT Venous LT Limited (Routine) Timeframe: 2 Weeks Facility: [facility] - Location: Vein Center Ordered By: James Davis Follow Up Appointments: 04/17/2024 Plan of Treatment: f/u evaluation with physician along with left leg limited u/s Patient Instructions: Endovenous Ablation (DC) Print Language: Polish Discharge Date/Time: 04/10/24 09:12
[2024-04-10] MEDS: LIDOCAINE HCL 1% 100 MG/10 ML MDV INJ (08:50)
[2024-04-10] MEDS: 0.9 % SODIUM CHLORIDE 500 ML, LIDOCAINE HCL 20 ML, SODIUM BICARBONATE 10 MEQ INJ (08:51)
--- NOTE | 2024-04-10 08:51 | VEIN_ITS ---
[address] [address] Patient Name: KRISTY MORELOS MRN: [id number] date: 1950 Sex: F Assigned Patient Location: Current Patient Location: Accession/Order Number: [id number] Exam Date: 04/10/2024 08:53 Report Date: 04/10/2024 10:01 At the request of: ABRIL HOOVER Procedure: VC Endovenous Ablation 1VeinLT EXAMINATION: VC Endovenous Ablation 1VeinLT HISTORY: I83.813 - Varicose veins of bilateral lower extremities w... The risks and benefits of the procedure had been previously discussed, and were rediscussed at length. Informed written consent was obtained. Vernon Garland RN and Emilia Greer RDMS, RVT assisted. Time out procedure was performed. The left lower extremity was prepared and draped in the usual sterile fashion to allow knee flexion in the sterile field. Duplex ultrasound probe was draped in a sterile cover, sterile transmission gel was used. Venous mapping was performed with the areas of dilation and large tributaries marked. The total length was 55 cm from the entry mid-distal calf to 3 cm below the Saphenofemoral junction. The diameter of the left great saphenous vein ranged from 6.1 mm. A 30 gauge needle and 1% buffered lidocaine was used to anesthetize the entry site. A 4 mm incision was made with a scalpel and the saphenous vein was entered percutaneously under direct ultrasound guidance with a micropuncture set, a single stick was successful in gaining access. A micro-guide wire was inserted and the needle removed. A micro-set including a dilator was inserted over the microwire and the needle and dilator were removed. A guide wire was inserted through the micro-set and guided through the saphenous vein to the saphenofemoral junction. The dilator was removed and an introducer sheath was inserted over the wire until the end of the sheath entered the saphenofemoral junction. The dilator and wire were removed and the 600 micron fiber was introduced and placed and positioned so that it extended beyond the sheath and was 3 cm distal to the saphenofemoral or saphenopopliteal junction. Final position of the fiber was determined by ultrasound guidance and duplex imaging. Tumescent anesthetic was delivered by ultrasound guidance. 275 cc of fluid was delivered along the entire course of the saphenous vein. The solution consisted of 1000 cc of normal saline with 40 mL of 1% lidocaine and 20 mL of sodium bicarbonate. A final positioning check was made. The energy source was turned on by means of the foot pedal and the fiber and sheath were withdrawn. The total number of Joules delivered was 3477. The laser was active for 435 seconds under continuous pulse, average laser use of 8 J. Laser start time: 9:26 AM Laser stop time: 9:33 AM Date: 04/10/2024. A duplex ultrasound revealed compressibility and flow at the saphenofemoral junction immediately after the procedure. Hemostasis at the access site was achieved. The skin incision of the saphenous vein was closed with a 4 x 4. A compression stocking was applied. Postop instructions were given. A follow up appointment was recommended and scheduled. The patient tolerated the procedure well. Electronically authenticated by: ABRIL HOOVER Date: 04/10/2024 10:01
--- OUTSIDE RECORDS SUMMARY | 2024-04-10 09:09 | XMS_ITS | CCD ---
Author Organization [facility] Inform ion Partnership [facility] Care Team Providers Care Cleaner Wall Name Role Phone Park Carias Unavailable Unavailable Primary Care Provider UnavailGRACIE Rodriguez Attending Unavailable JOHN QUIROZ Attending Unavailable Arden Martinez DO Primary Care Provider Kenyon Tamayo Unavailable ARDEN MARTINEZ Primary Care Unavailab ALLISON Bocanegra Attending Unava ilable Allergies Allergy Classification Reported Allergen(s) Allergy Type Date of Onset Reaction(s) Facility (3 sources) Naproxen Drug Allergy 01-16-2012 [facility] [place] Other (2 sources) Naproxen; Translations: [NAPROXEN SODIUM] Drug Allergy 01-16-2012 [facility] Medications Current Medications Medication Drug Class(es) Dates [...] Once a day Active vit A-vit C-vit H-ycwe-qiymv r (EYE VITAMIN AND MINERALS) 7,160-113-100 hoap-ip-wsxv tab (1 source) vit A-vit C-vit R-ejtx-euagxc (EYE VITAMIN AND MINERALS) 7,160-113-100 yjtm-jt-kxmd tab Eye Vitamin and Minerals Active Completed/Discontinued [...] Test Name Value Interpretation Reference Range Facility [facility] 02-11-2024 CNOV Office Visit ([facility] ) BETINA MORELOS ([id number]) 1950 F Date Time Provider Department 02/11/24 11:00 AM ALLISON ORO [facility] During your visit today, we recorded the [...] with more than 50% of the total ubpf-vz-smwy time of the visit in counseling / [...] Simple biliary-type cyst with associated fibrosis. . [facility] 11/26/2019 Shawn Hutchinson M.D., Ph.D. (Electronic Signature) [...] 3-6 months? 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 Normal [facility] No Panel Informationon 07-13 [facility] ALLIED HEALTHon 11-21-2019 ALLIED HEALTH HNO ID: [id number] Author: Ema Ferrer (Chaplain) Service: Healing Service Author Type: Secretary To The Vice President Type: Allied Health Filed: 11/21/2019 7:57 AM Note Text: SPIRITUAL CARE Spiritual Care Visit Record Name: Betina Morelos Date: November 21, 2019 Type of Visit: Preoperative Prayer/Visit Visit was with (pt, dtr). Ministry Provided During Visit: Spiritual Presence / Support Notes: I introduced self. Pt is Restorationism. I gave her a blessing. Pt thanked for visit. Referrals: No referral made Will See: As Needed Only Follow-up Notes: Informed patient and family of Secretary To The Vice President availability Secretary To The Vice President Signature: Ema Ferrer Secretary To The Vice President Student To contact the Spiritual Care Department: Please call [phone] or Page the On-Call Secretary To The Vice President at pager [phone] Thank you for the opportunity to be of service. This is an electronically created document. IF PRINTED, PLEASE DO NOT REMOVE FROM THE CHART OR MODIFY PRINTED COPY. [facility] ANES Nerissa 11-21-2019 ANES POST HNO ID: [id number] Author: Aimee Quintero I Service: Anesthesiology Author [...] DATE: November 21, 2019 TIME: 12:19 PM [facility] ANES PREOPon 11-21-2019 ANES PREOP HNO ID: [id number] Author: Aimee Quintero I Service: Anesthesiology Author [...] Encounter Medication Sig - vit A-vit C-vit X-wjbd-fjowxf (EYE VITAMIN AND MINERALS) 7,160-113-100 pcgs-ow-bwbs tab Eye Vitamin and Minerals - timolol [...] 3 Other Medical Problems: None Chronic Beta Mayr medication administered within 24 hours: N/A I [...] November 21, 2019 TIME: 7:02 AM Normal [facility] CYTOLOGYon 11-21-2019 CYTOLOGY Specimen originated from [facility] Specimen #: [id number] Submitting Physician: ALLISON ORO SPECIMEN SUBMITTED A: [...] CYST FLUID, FINE NEEDLE ASPIRATE THIN PREP Non-Meat Carver B: ABDOMINAL FLUID (THINPREP AND CELL BLOCK) THIN PREP Non-Meat Carver, CELL BLOCK, H&E, Initial Date of Report: 11/21/2019 Date of Procedure: 11/21/2019 Date of Receipt: 11/21/2019 Submitted by: ALLISON ORO Location: [facility] Diagnostic interpretation performed at [facility], [address] [place] [address], [place] [address]. CLIA Number: [id number] [facility] HISTORY PHYSICALon 0 HISTORY PHYSICAL HNO ID: [id number] Author: Allison Oro Service: General Surgery Author [...] a result of the 08/19/19 order by [facility] Director Darling Espino M.D. to [...] DATE: November 21, 2019 TIME: 7:13 AM PAGER:[phone] [facility] NURSING PROGon 11-21-2019 NURSING PROG HNO ID: [id number] Author: Yomaira DuranRn) KAILYN Montano Service: ? [...] note was completed by: Yomaira Montano RN [facility] NURSING PROG HNO ID: [id number] Author: Zarina (Rn) KAILYN Brownlee Service: ? [...] note was completed by: Hernan Brownlee RN [facility] OPERATIVE NOon 11-21-2019 OPERATIVE NO HNO ID: [id number] Author: Allison Oro Service: General Surgery Author Type: Physician Type: Operative Report Filed: 11/24/2019 10:33 AM Note Text: [facility] - Operative Report BETINA MORELOS : 1950 AGE: 69. SEX: F PATIENT TYPE: I HOSP SVC: GENS LOCATION: [facility] ATTENDING PHYSICIAN: Allison Oro MD CSN NUMBER: [id number] DATE OF SURGERY/PROCEDURE: 11/21/2019 INCISION/PROCEDURE START TIME: 7:55 am INCISION CLOSE/PROCEDURE END TIME: 8:59 am PREOPERATIVE DIAGNOSIS: Symptomatic right lobe liver cyst. POSTOPERATIVE DIAGNOSIS: Symptomatic right lobe liver cyst. SURGEON: Allison Oro MD NETWORK OPERATIONS ANALYST: No Additional Staff SURGERY/PROCEDURE: Laparoscopy and cyst [...] portions of the operation. 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 [...] None Electronically Signed By: Yomaira Montano RN [facility] SURGICAL PATHOLOGYon 020 SURGICAL PATHOLOGY Specimen originated from [facility] Specimen #: [id number] Submitting Physician: ALLISON ORO FINAL DIAGNOSIS Liver cyst wall, excision (A) - Simple biliary-type cyst with associated fibrosis. . [facility] 11/26/2019 Shawn Hutchinson M.D., Ph.D. (Electronic Signature) [...] thickness. No excrescences or papillations are identified. Supply Chain Planner sections are submitted in seven cassettes. LINA/carmen 11/21/2019 Gross examination performed at [facility], [address] [place] [address] Date of Report: 11/27/2019 Date of Procedure: 11/21/2019 Date of Receipt: 11/21/2019 Submitted by: ALLISON ORO Location: [facility] Diagnostic interpretation performed at [place] [address]. CLIA Number: [id number] [facility] Wound Culture/Stainon 2019 Wound Culture/Stain Sp. Request/Comment: - Eswab Smear Result - No organisms seen No Polymorphonuclear Leukocytes Culture Result - No growth 3 days [facility] Comment on above: Performed By: #### W CUL ####[facility] [place], [place] [phone] Wound Culture/Stain Sp. Request/Comment: - Eswab Smear Result - No organisms seen No Polymorphonuclear Leukocytes Culture Result - No growth 3 days [facility] Comment on above: Performed By: #### W CUL ####[facility] [place], [place] [phone] Confirm Blood Typeon 020 ABO/RH(D) Positive [facility] [id number] 11-18-2019 ECG01 NAME : RUPAL MORELOS PID : [id number] : 1950 Gender : Female Race : ORD : [id number] Procedure Date : Nov 18 2019 13:19:19 [...] ms QTC Calculation(Bazett) : 412 ms P Covert : -2 degrees R Covert : 51 degrees T Covert : -1 degrees Test Reason : Location : 49 : [facility] Overread By : DARON NAVARRO M.D. Edited By : DARON NAVARRO M.D. Referred By : BARBIE BURTON Acquired by : AMIRA WALLACE [facility] HOSPon 09-18-2019 HOSP Patient:Pola Morelos ee n M MRN: Height:5' 6.5 [patient reported[(1.689 m) Weight:152 lb (68.947 kg) Outpatient Medications as of 11/21/19: vit A-vit C-vit L-vecp-hqxclw (EYE VITAMIN AND MINERALS) 7,160-113-100 yvxf-et-fwwa tab timolol maleate (TIMOPTIC) 0.5 % ophthalmic [...] notes entered within the past 30 days [facility] Reminderson 04-15-2019 Reminders - From: Aurora Medina CMA To: [facility] - Reminders/Recalls; Sent: 12/04/2018 12:26:41 EDT Show up: 03/04/2019 12:26:00 EDT Subject: 2018 RECALL Due Date/Time: 04/20/2019 12:26:00 EST Reminder/Recall Colonoscopy recall [address] Azevedo Due 04/20/19 First Recall Letter Sent Clp Second Recall Letter [facility] Vital Signs Date Time Vital Sign Value Performing Clinician Facility 02-11-2024 11:09-0400 Body height 168.9 cm Allison Oro MD Work Phone: [facility] 02-11-2024 11:09-0400 Body mass index (BMI) [Ratio] 23.08 kg/m2 Allison Oro MD Work Phone: [facility] 02-11-2024 11:09-0400 Body temperature 96.91 [degF] Allison Oro MD Work Phone: [facility] 02-11-2024 11:090400 Body weight 65.86 kg Allison Oro MD Work Phone: [facility] 02-11-2024 11:09-0400 Diastolic blood pressure 68 mm[Hg] Allison Oro MD Work Phone: [facility] 02-11-2024 11:09-0400 Heart rate 83 /min Allison Oro MD Work Phone: [facility] 02-11-2024 11:09-0400 Systolic blood pressure 130 mm[Hg] Allison Oro MD Work Phone: [facility] 05-09-2023 12:40-0500 Body height 165.1 cm Park Carias Other [email or web address] Other 05-09-2023 12:40-0500 Body mass index (BMI) [Ratio] 22.46 kg/m2 Park Carias Other [email or web address] Other 05-09-2023 12:40-0500 Body temperature 98 [degF] Park Carias Other [email or web address] Other 05-09-2023 12:40-0500 Body weight 61.24 kg Park Carias Other [email or web address] Other 05-09-2023 12:40-0500 Diastolic blood pressure 65 mm[Hg] Park Carias Other [email or web address] Other 05-09-2023 12:40-0500 Respiratory rate 18 /min Park Carias Other [email or web address] Other 05-09-2023 12:40-0500 SaO2% (BldA) [Mass fraction] 98 % Park Carias Other [email or web address] Other 05-09-2023 12:40-0500 Systolic blood pressure 133 mm[Hg] Park Carias Other [email or web address] Other Encounters Encounter Date Encounter Type Care Provider Facility Start: 02-11-2024 End: 02-11-2024 ambulatory ARDEN LOPES [place] Facility:[facility] Start: 02-11-2024 End: 02-11-2024 Patient encounter procedure [...] 05-09-2023 End: 05-09-2023 ambulatory Park Aretha Other [email or web address] Other Start: 05-09-2023 Office outpatient ne w 20 minutes Park Carias [facility] Procedures Date Procedure Procedure Detail Performing Clinician Start: 07-13-2023 End: 07-13-2023 CRYOTHERAPY SKIN LESION Gracie LARIOS Work Phone: Start: 11-18-2019 Antibody screen Plan of Treatment Date Care Activity Detail Author Start: 02-15-2026 Urine microalbumin profile DTaP,Tdap,Td Vaccine (2 - Td or Tdap) [facility] Start: 07-14-2024 End: 07-14-2024 Patient encounter procedure 07/14/2024 10:50 AM EST Office Visit [facility] [address] [place] [address] Gracie Luna PA [address] [place], [place] [id number] [facility] Start: 02-03-2024 Covid-19 Vaccine ( season) Covid-19 Vaccine ( season) [facility] Start: 02-03-2024 Influenza vaccination Influenza Vacc ine (#1) [facility] Start: 07-13-2023 End: 07-13-2023 Patient encounter procedure 07/13/2023 11:50 AM EST Office Visit [facility] [address] [place] [address] Gracie Luna PA [address] [place] [address] Arrived [facility] Comment on above: Arrived Start: 06-04-2023 Advance Directive Discussion Advance Directive Discussion [facility] Start: 02-02-2023 Influenza vaccination Influenza Vacc ine (#1) [facility] Start: 2013 Pneumococcal Vaccine : 65+ (1 of 1 - PCV) Pneumococcal Vaccine: 65+ (1 of 1 - PCV) [facility] Start: 2013 Pneumococcal Vaccine : 65+ Years (1 - PCV) Pneumococcal Vaccine: 65+ Years (1 - PCV) [facility] Start: 2008 RSV Vaccine (1 - 1-d ose 60+ series) RSV Vaccine (1 - 1-dose 60+ series) [facility] Start: 1993 Diabetes Screening Diabetes Screenin g [facility] Start: 1993 Lipid panel Lipid Screening [facility] Start: 1993 Screening for malign ant neoplasm of colon [facility] Start: 1966 Anxiety Screening Anxiety Screening [facility] Start: 1966 Depression Screening Depression Scre ening [facility] Start: 1966 Hepatitis C screening Hepatitis C Sc reening [facility] Start: 1950 Screening for malign ant neoplasm of colon [facility] Payers Date Payer Category Payer Private Health Insurance [id number] 2020 Unknown [id number] 2018 Unknown [id number] 2013 Medicare [id number] 2.1 [id number] 2013 Medicare [id number] 1950 Unknown [id number] 1950 Unknown [id number] Social History Date Type Detail Facility Unknown if ever smoked [email or web address] Other Start: 07-13-2023 End: 02-11-2024 Sex Assigned At [employer] Other Tobacco smoking stat [facility] Tobacco smoking consumption unknown [facility] Start: 1950 Sex Assigned At Female [facility] Start: 07-12-2023 Gender identity Identifies as female gender (finding) [facility] Start: 07-13-2023 End: 02-11-2024 Tobacco smoking status NHIS Never smoked tobacco [facility] Start: 07-13-2023 End: 02-11-2024 Tobacco use and exposure Smokeless tobacco non-user [facility] Start: 07-13-2023 End: 02-11-2024 History of Social function [facility] Start: 02-11-2024 Alcoholic beverage intake Current drinker of alcohol (finding) [facility] How often to you hav e a drink containing alcohol? Monthly or less [facility] Average Number of Drinks Not on file [facility] Start: 11-17-2019 Alcohol Comment less than 1 drink per week [facility] Start: 1950 Sex assigned at Not on file [facility] Nurse Note 02-11-2024 Raissa Shook LPN - [...] 3-6 months? NO Bowels: regular patient declined dredge or barge shore hand Raissa Shook LPN [facility] Nurse Note 02-11-2024 Raissa Shook LPN - [...] 3-6 months? NO Bowels: regular patient declined dredge or barge shore hand Raissa Shook LPN documented in this encounter [facility] History of Present illness Narrative 02-11-2024 Allison [...] with more than 50% of the total jzga-uo-czlx time of the visit in counseling / [...] Simple biliary-type cyst with associated fibrosis. . [facility] 11/26/2019 Shawn Hutchinson M.D., Ph.D. (Electronic Signature) [...] TIME: 11:43 AM documented in this encounter [facility] Progress note 02-11-2024 Note Date & Type Note Facility 02-11-2024 Note HNO ID: [id number] Author: ALLISON ORO MD Service: ? Author [...] with more than 50% of the total gxbe-na-pwez time of the visit in counseling / [...] Simple biliary-type cyst with associated fibrosis. . [facility] 11/26/2019 Shawn Hutchinson M.D., Ph.D. (Electronic Signature) [...] DATE: February 11, 2024 TIME: 11:43 AM [facility] History of Present illness Narrative 07-13-2023 HARRIET [...] Examined Right arm Examined Patient wearing nail maltese, Denies dark streaks on toenails Left arm [...] limited to risks of scarring, darker or health inspector food pigmentary changes, recurrence, incomplete removal and infection. [...] limited to risks of scarring, darker or health inspector food pigmentary changes, recurrence, incomplete removal and infection. [...] Visit: 1 year documented in this encounter [facility] Evaluation note 05-09-2023 Note Date [...] no improvement in 2 to 3 days [email or web address] Other Evaluation note Note Date & Type [...] disease of liver documented in this encounter [facility] History general Narrative - Reported Note Date & Type Note Facility History general Narrative - Reported Type Medical History HYPERLIPIDEMIA Medical History MRI abdomen Surgical History SINUS SX 1999 [email or web address] Other Summary Purpose Family History No Family History Records FoundNo Family History Records FoundNo Family History Records FoundNo Family History Records Found Advance Directives No Advanced Directives Records FoundNo Advanced Directives Records FoundNo Advanced Directives Records FoundNo Advanced Directives Records Found Procedure Findings Note HNO ID: [id number] Author: Eleazar Martin Service: General Surgery Author Type: Resident Type: Brief Op Note Filed: 11/21/2019 9:09 AM Note Text: GENERAL SURGERY BRIEF OPERATIVE NOTE Betina Morelos [id number] LOG ID: [id number] Surgery/Procedure Date: 11/21/2019 Incision/Procedure Start Time: 7:55 AM Incision Close/Procedure End Time: 8:59 AM Surgeon(s)/Proceduralist(s) and Maintenance Man(s): Surgeon(s) and Role: * Allison Oro - [...] and content) DATE CREATED AUTHOR 04/15/2019 [employer] [facility] DATE CREATED AUTHOR AUTHOR'S ORGANIZ ATION 12/24/2019 [facility] DATE CREATED AUTHOR AUTHOR'S ORGANIZ ATION 10/20/2023 [facility] EPIC DATE CREATED AUTHOR AUTHOR'S MARGO DESHPANDE 02/12/2024 [facility] REASON FOR VISIT (unrecogniz ed section and content) Reason Comments Skin Check Reason Comments New Patient Source Comments (unrecognize d section and content) In the event this informatio n is protected by the Federal Confidentiality of Alcohol and Drug Abuse Patient Records regulations: The Federal rules restrict any use of the information to criminally investigate or prosecute any alcohol or drug abuse patient.[facility] Care Teams (unrecognized sec tion and content) Cleaner Wall Relationship Specialty Start Date End Date Arden Martinez DO [address] [place] [address] PCP - General 12/23/07 Kenyon Tamayo [address] [facility] [address] [place] [address] Referring Gastroenterology 09/04/19 FOR RECORDS PERTAINING TO [...] BE BASED ON THE PRIMARY CLINICAL RECORDS. [employer] provides no warranty or guarantee of the accuracy or completeness of information in this document.
[2024-04-10 09:12] VITALS: BP 116/68; PULSE 76; O2SAT 98
== END 2024-04-10 09:12 | disposition home or self-care (01) ==
LOC: VC 08:49
PROVIDERS: PCP Radiology Diagnostic Radiology; Visit Provider Radiology Diagnostic Radiology
DX: I83.813 Varicose veins of bilateral lower extremities with pain (principal)
CPT/HCPCS: 36478

== ENCOUNTER 2024-04-17 09:34 | Outpatient (OUT) | payer MEDICARE, SELFPAY ==
--- NOTE | 2024-04-16 13:44 | V.VEINS.HP ---
Varicose Veins Patient in today for follow up ultrasound post EVLT of left GSV Roel Castillo MD personally performed the services described in this documentation, as scribed by Emilia Greer RVT, RDMS in my presence and it is both accurate and complete. Emilia Castillo RVT, RDMS, am scribing for, and in the presence of, Dr. Roel Montez and in the presence of the patient. thigh: bilateral (symptoms equally bilateral), knee: bilateral, calf: bilateral, ankle: bilateral and ross: bilateral aching, cramping, dull and tender 2 20 years Worsened in recent months: Yes standing analgesics, elevating extremities, compression stockings and exercise Reports muscle spasms of leg, heaviness, limb pain, edema and leg edema History of lower extremity trauma: No Superficial thrombophlebitis: No Family history of varicose veins: yes Has patient had previous lower extremity venous surgery: No Patient has previously received the following treatment(s) for lower extremity varicose veins: Reports none Does patient have a history of : yes Does patient intend to have future pregnancies: no Has patient had lower extremity venous scan with relux testing: No Support hose used: Yes Problems walking or doing physical activity: Yes How does it affect you: often has to stop and rest and elevate legs/feet Do you walk much: Yes Do you stand much: Yes Review of Systems ROS Narrative Roel Castillo MD personally performed the services described in this documentation, as scribed by Emilia Greer RVT, RDMS in my presence and it is both accurate and complete. Emilia Castillo RVT, RDMS, am scribing for, and in the presence of, Dr. Roel Montez and in the presence of the patient. Status of ROS 10 or more systems reviewed and unremarkable except as noted in history and below Cardiovascular Reports: edema Integumentary/Breast Reports: skin tenderness, skin swelling and changes in skin color Neurological Reports: numbness in extremities and weakness in extremities [facility] Medical History (Updated 04/16/24 @ 13:45 by Emilia Greer) Phlebitis and thrombophlebitis of superficial vessels of left lower extremity ?I80.02 - Phlebitis and thrombophlebitis of superficial vessels of left lower extremity (ICD-10) Phlebitis and thrombophlebitis of superficial vessels of right lower extremity ?I80.01 - Phlebitis and thrombophlebitis of superficial vessels of right lower extremity (ICD-10) Foreign object left in body during procedure ?T81.509A - Unspecified complication of foreign body accidentally left in body following unspecified procedure, initial encounter (ICD-10) Cataract ?H26.9 - Unspecified cataract (ICD-10) Glaucoma ?H40.9 - Unspecified glaucoma (ICD-10) Peripheral neuropathy ?G62.9 - Polyneuropathy, unspecified (ICD-10) Pain due to varicose veins of both lower extremities ?I83.813 - Varicose veins of bilateral lower extremities with pain (ICD-10) Surgical History (Updated 04/10/24 @ 09:13 by Vernon Garland) Status post laser ablation of incompetent vein ?Z98.890 - Other specified postprocedural states (ICD-10) Status post laser ablation of incompetent vein ?Z98.890 - Other specified postprocedural states (ICD-10) Social History (Updated 03/14/24 @ 08:42 by Vernon Garland) Within the past year, how often did you have a drink containing alcohol: monthly or less Smoking status: Never smoker Non-prescribed substance use: denies use Meds Home Medications and Allergies Allergies Allergy/AdvReac Type Severity Reaction Status Date / Time naproxen (From Aleve) Allergy Intermediate Hives Verified 03/14/24 08:43 Exam Narrative Exam Narrative: Roel Castillo MD personally performed the services described in this documentation, as scribed by Emilia Greer RVT, RDMS in my presence and it is both accurate and complete. Emilia Castillo RVT, RDMS, am scribing for, and in the presence of, Dr. Roel Montez and in the presence of the patient. Constitutional Documenting provider has reviewed patient's vital signs: yes Common normals: oriented x3 Cardio Peripheral pulses: posterior tibial pulses present and dorsalis pedis pulses present Extremity Common normals: normal capillary refill General: edema Right lower extremity: lower leg Right lower leg: inspection and palpation Left lower extremity: lower leg Left lower leg: inspection and palpation Neuro Common normals: oriented x3 Results Imaging Venous US: Radiologist's impression: The ultrasound demonstrates Heat induced thrombus visualized 1.5cm from SFJ. The heat induced thrombus extends from groin to mid calf. Assessment and Plan Assessment and Plan (1) Phlebitis and thrombophlebitis of superficial vessels of left lower extremity: Plan Patient in today for follow up ultrasound of lower extremity following treatment of EVLT of left leg GSV completed on 04/10/24. IRoel MD personally performed the services described in this documentation, as scribed by Emilia Greer RVT, RDMS in my presence and it is both accurate and complete. Emilia Castillo RVT, RDMS, am scribing for, and in the presence of, Dr. Roel Montez and in the presence of the patient.
--- NOTE | 2024-04-16 13:52 | P.DS_ITS ---
Discharge Plan Discharge Disposition: Home, Self-Care Outpatient Diagnostics: VC INJ Foam Sclerosant [place] LINE SERVICER (Routine) Timeframe: 2 Weeks Facility: [facility] - Location: Vein Center Ordered By: Roel Montez Follow Up Appointments: 04/22/24 Plan of Treatment: Varithena/microfoam chemical ablation right leg. Print Language: Azeri Discharge Date/Time: 04/17/24 10:06
--- NOTE | 2024-04-16 13:52 | W.VEIN ---
Discharge Plan Discharge Disposition: Home, Self-Care Outpatient Diagnostics: VC INJ Foam Sclerosant [place] CLAIM MANAGER (Routine) Timeframe: 2 Weeks Facility: [facility] - Location: Vein Center Ordered By: Roel Montez Follow Up Appointments: 04/22/24 Plan of Treatment: Varithena/microfoam chemical ablation right leg. Print Language: Mohawk Discharge Date/Time: 04/17/24 10:06
--- NOTE | 2024-04-17 09:34 | VEIN_ITS ---
Patient Name: KRISTY MORELOS MR#: [id number] : 1950 Exam Date: 04/17/2024 Ordering Doctor: DR AVIVA RUSHING M.D. RADIOLOGY REPORT PROCEDURE: VC EXT VENOUS LT LIMITED COMPARISON: None. INDICATIONS: I80.02 - Phlebitis and thrombophlebitis of superficial ve... TECHNIQUE: Lower extremity pelayo scale and Duplex Doppler evaluation of the deep venous system from the inguinal ligament through the calf veins. FINDINGS: REGION: Left lower extremity. THROMBI: Negative for DVT. Heat induced thrombus visualized 1.5cm from SFJ. The heat induced thrombus extends from groin to mid calf. COMPRESSIBILITY: Non-compressible segments corresponding to thrombus FLOW: Areas of no flow corresponding to thrombus OTHER: CONCLUSION: 1. Successful post ablation occlusion of left great saphenous vein. Dictated by: Roel Montez M.D. on 04/17/2024 at 10:22 Approved by: Roel Montez M.D. on 04/17/2024 at 10:23
--- NOTE | 2024-04-17 09:34 | VEIN_ITS ---
Patient Name: KRISTY MORELOS MR#: [id number] : 1950 Exam Date: 04/17/2024 Ordering Doctor: DR AVIVA RUSHING M.D. RADIOLOGY REPORT PROCEDURE: [facility] EST LMTD VEIN [facility] - OFFICE VISIT FOLLOW UP COMPARISON: [facility], 03/26/2024. PROGRESS NOTES: The patient reports improvement in leg symptoms. There has been interval reduction in varicosities. The patient has followed our recommendations to walk 20-30 minutes once or twice per day since the procedure. Physical exam demonstrates decrease in varicosities of the leg. Persistent superficial varicose veins are identified along the legs bilaterally. Review of the ultrasound performed the same day demonstrates occlusive thrombus extending throughout the treated vein(s), see separate report, consistent with a successful ablation. No thrombus extending into or beyond the saphenofemoral junction. The patient expressed a desire to proceed with treatment of remaining incompetent varicosities. The patient was informed that treatment was a process and would require several procedures/sessions. [facility]: 1. Successful ablation of the left great saphenous vein(s). 2. Persistent varicose veins and lower extremity symptoms. PLAN: 1. Microfoam chemical ablation of right leg incompetent branch saphenous varicosities. Nurse notes, history and physical were reviewed and confirmed, see attached forms. The nurse was present throughout the physical exam and consultation Dictated by: Roel Montez M.D. on 04/17/2024 at 10:23 Approved by: Roel Montez M.D. on 04/17/2024 at 10:24
== END 2024-04-17 10:06 | disposition home or self-care (01) ==
LOC: VC 09:34
PROVIDERS: PCP Radiology Diagnostic Radiology; Visit Provider Radiology Diagnostic Radiology
DX: I80.02 Phlebitis and thrombophlebitis of superficial vessels of left lower extremity (principal)
CPT/HCPCS: 93971; G0463

== ENCOUNTER 2024-04-22 11:15 | Outpatient (OUT) | payer MEDICARE, SELFPAY ==
--- NOTE | 2024-04-21 14:51 | VEINCLINIC_ITS ---
Vital Signs 04/22/24 12:17 BP 129/69 BP Location Right Brachial BP Position Sitting BP Cuff Size Adult BP Source Automatic Cuff Respiration 16 Pulse 63 Pulse Source Monitor Pulse Oximetry (%) 98 Oxygen Delivery Method Room Air Comment The patient's blood pressure is elevated. Varicose Veins Patient in today for microfoam chemical ablation right leg Roel Castillo MD personally performed the services described in this documentation, as scribed by Vernon Garland RN in my presence and it is both accurate and complete. Vernon Castillo RN, am scribing for, and in the presence of, Dr. Roel Montez and in the presence of the patient. thigh: bilateral (symptoms equally bilateral), knee: bilateral, calf: bilateral, ankle: bilateral and ross: bilateral aching, cramping, dull and tender 2 20 years Worsened in recent months: Yes standing analgesics, elevating extremities, compression stockings and exercise Reports muscle spasms of leg, heaviness, limb pain, edema and leg edema History of lower extremity trauma: No Superficial thrombophlebitis: No Family history of varicose veins: yes Has patient had previous lower extremity venous surgery: No Patient has previously received the following treatment(s) for lower extremity varicose veins: Reports none Does patient have a history of : yes Does patient intend to have future pregnancies: no Has patient had lower extremity venous scan with relux testing: No Support hose used: Yes Problems walking or doing physical activity: Yes How does it affect you: often has to stop and rest and elevate legs/feet Do you walk much: Yes Do you stand much: Yes Review of Systems ROS Narrative Roel Castillo MD personally performed the services described in this documentation, as scribed by Vernon Garland RN in my presence and it is both accurate and complete. Vernon Castillo RN, am scribing for, and in the presence of, Dr. Roel Montez and in the presence of the patient. Status of ROS 10 or more systems reviewed and unremark able except as noted in h istory and below Cardiovascular Reports: edema Integumentary/Breast Reports: skin tenderness, skin swelling and changes in skin color Neurological Reports: numbness in extremities and weakness in extremities [facility] Medical History (Updated 04/16/24 @ 13:45 by Emilia Greer) Phlebitis and thrombophlebitis of superficial vessels of left lower extremity ?I80.02 - Phlebitis and thrombophlebitis of superficial vessels of left lower extremity (ICD-10) Phlebitis and thrombophlebitis of superficial vessels of right lower extremity ?I80.01 - Phlebitis and thrombophlebitis of superficial vessels of right lower extremity (ICD-10) Foreign object left in body during procedure ?T81.509A - Unspecified complication of foreign body accidentally left in body following unspecified procedure, initial encounter (ICD-10) Cataract ?H26.9 - Unspecified cataract (ICD-10) Glaucoma ?H40.9 - Unspecified glaucoma (ICD-10) Peripheral neuropathy ?G62.9 - Polyneuropathy, unspecified (ICD-10) Pain due to varicose veins of both lower extremities ?I83.813 - Varicose veins of bilateral lower extremities with pain (ICD-10) Surgical History (Updated 04/22/24 @ 12:18 by Vernon Garland) S/P sclerotherapy of varicose veins ?Z98.890 - Other specified postprocedural states (ICD-10) ?Z86.79 - Personal history of other diseases of the circulatory system (ICD- 10) Status post laser ablation of incompetent vein ?Z98.890 - Other specified postprocedural states (ICD-10) Status post laser ablation of incompetent vein ?Z98.890 - Other specified postprocedural states (ICD-10) Social History (Updated 03/14/24 @ 08:42 by Vernon Garland) Within the past year, how often did you have a drink containing alcohol: monthly or less Smoking status: Never smoker Non-prescribed substance use: denies use Meds Home Medications and Allergies Allergies Allergy/AdvReac Type Severity Reaction Status Date / Time naproxen (From Aleve) Allergy Intermediate Hives Verified 03/14/24 08:43 Exam Narrative Exam Narrative: IRoel MD personally performed the services described in this documentation, as scribed by Vernon Garland RN in my presence and it is both accurate and complete. IVernon RN, am scribing for, and in the presence of, Dr. Roel Montez and in the presence of the patient. Constitutional Documenting provider has reviewed patient's vital signs: yes Common normals: oriented x3 Cardio Peripheral pulses: posterior tibial pulses present and dorsalis pedis pulses present Extremity Common normals: normal capillary refill General: edema Right lower extremity: lower leg Right lower leg: inspection and palpation Left lower extremity: lower leg Left lower leg: inspection and palpation Neuro Common normals: oriented x3 Assessment and Plan Assessment and Plan (1) Pain due to varicose veins of both lower extremities: Plan Patient to return for f/u evaluation with physician along with right leg limited u/s Roel Castillo MD personally performed the services described in this documentation, as scribed by Vernon Garland RN in my presence and it is both accurate and complete. Vernon Castillo RN, am scribing for, and in the presence of, Dr. Roel Montez and in the presence of the patient. Procedures Procedure Instructions Procedures Right leg microfoam chemical ablation/Varithena: Risks and benefits of the procedure were discussed at length and informed written consent was obtained.? Time-out procedure was performed and the correct patient and procedure were confirmed.? Staff present during time-out: Vernon Garland RN and Roel Montez MD.? Patient prepped and procedure performed in usual sterile fashion.? Patient was placed in Trendelenburg prior to Polidocanol/Varithena injections. Sclerosing Agent:?? 12cc 1% Polidocanol/Varithena Site Injected: right lecc varithena administered in to a 3mm varicose vein right mid medial lower leg 6cc varithena administered in to a 4mm varicose vein medial right knee Number of Injections:? 2 The patient tolerated the procedure well without complication.? Hemostasis was obtained and thigh-high compression stocking was applied with foam pads.? Instructed patient to wear stocking for at least 96 hours and sleep with it and only remove for showering.? The patient was instructed to? wear stocking for 2 weeks.? Patient verbalizes understanding and states they will comply.? Patient was given post-procedure instructions. Patient was discharged in good condition.? Scheduled to undergo limited venous ultrasound and? exam on 07/02/2023 Roel Castillo MD personally performed the services described in this documentation, as scribed by Vernon Garland RN in my presence and it is both accurate and complete. I, Vernon Dada RN, am scribing for, and in the presence of, Dr. Roel Montez and in the presence of the patient.
--- NOTE | 2024-04-21 15:43 | W.VEIN ---
Discharge Plan Discharge Disposition: Home, Self-Care Outpatient Diagnostics: VC Facility EST LMTD (Routine) Timeframe: 2 Weeks Facility: [facility] - Location: Vein Center Ordered By: Roel Montez VC EXT Venous RT LMTD (Routine) Timeframe: 2 Weeks Facility: [facility] - Location: Vein Center Ordered By: Roel Montez Follow Up Appointments: 05/02/2024 Plan of Treatment: f/u evaluation with physician along with right leg limited u/s Patient Instructions: Polidocanol (By injection) (Asclera, Varithena) Print Language: Turkish Discharge Date/Time: 04/22/24 12:16
--- NOTE | 2024-04-22 11:15 | VEIN_ITS ---
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 Pre-operative Diagnosis: CEAP class C3 venous insufficiency with pain, tenderness, edema and incompetent branch saphenous vein(s), chronic venous insufficiency left leg secondary to venous incompetence Post-operative Diagnosis: CEAP class C3 venous insufficiency with pain, tenderness, edema and incompetent branch saphenous vein(s), chronic venous insufficiency left leg secondary to venous incompetence Procedure Performed: 1. Ultrasound-guided microfoam chemical ablation with Varithenaregistered 2. Intraoperative ultrasound guidance Physician: Abril Hoover M.D. Anesthesia: None Indications for Procedure: 74 year old female. Symptoms including lower extremity pain, swelling, dilated bulging veins for many years despite conservative medical therapy including medical compression stockings, exercise and analgesics. Prior procedures include endovenous laser ablation. Multiple incompetent varicosities of the left leg. Duplex scan showed reflux and enlarged diameters up to 3 mm. The patient underwent informed consent including management options where the complications of infection, bleeding, pain, and skin injury were discussed. Particular attention was spent discussing thrombus extension and deep vein thrombosis as well as the possibility of pulmonary embolus and treatment with oral or injectable blood thinners. Procedure: The patient walked to the procedure room. All applicable staff donned appropriate apparel. A procedure timeout was performed to confirm correct patient, correct extremity, correct procedure, and correct room set-up including presence of all applicable supplies, devices, and drugs. A duplex ultrasound, performed by myself confirmed the location and incompetence of branch saphenous varicosities and their course was marked on the skin together with the dilated tributaries. The extent of treatment of the vein and the associated varicosities was determined through ultrasound mapping. The skin was prepped and then punctured with a butterfly needle and advanced under ultrasound guidance. The Varithenaregistered canister was activated and the canister was primed and purged as required in the instructions for use. Varithenaregistered was drawn into a sterile syringe. Varithenaregistered was slowly administered at 0.5-1.0 cc/second with close observation by ultrasound of its course in the vessels. Total volume utilized was: 5 mL (3 mL intravenous 3 mm varicosity lateral to the knee; 2 mL 20 23 mm varicosity distal anterior thigh). Following administration of Varithenaregistered the leg was elevated and the patient was asked to repeatedly dorsiflex the ankle to limit flow of Varithenaregistered into perforating veins. Once appropriate spasm had been confirmed in the treated veins, the vascular catheter was removed from the leg and light pressure was applied over the puncture site for hemostasis. The common femoral and deep superficial veins were then evaluated for flow and compressibility prior to dressing placement. The lower extremity was kept elevated at 45 degrees above the horizontal and cording material was applied over the saphenous segments and tributaries to allow for eccentric compression over the target vessels including the targeted saphenous vein(s). A multilayer dressing was applied consisting of foam pads, coban and thigh-high 20-30 mm Hg compression elastic support hose were placed on the patient. The leg was lowered only after compression had been applied and the patient was immediately ambulatory. The patient ambulated 10 minutes under supervision and was without apparent concerns at time of release. Post-care instructions include advising patient to keep post-treatment bandages in place and dry for 48 hours, avoid extended periods of inactivity, avoid heavy exercise for one week, wear compression stockings on the treated leg continuously for two weeks, to walk daily for 10 minutes over the next month. The patient was instructed to take an anti-inflammatory medicine as needed and to follow up for color duplex scan of the Saphenous veins, the treated branch saphenous varicosities, the adjacent deep veins, and additional treatment within 7 days. PERSONNEL: Vernon Garland RN Electronically authenticated by: ABRIL HOOVER Date: 04/22/2024 14:02
[2024-04-22 12:17] VITALS: BP 129/69; PULSE 63; O2SAT 98
== END 2024-04-22 12:16 | disposition home or self-care (01) ==
LOC: VC 11:15
PROVIDERS: PCP Radiology Diagnostic Radiology; Visit Provider Radiology Diagnostic Radiology
DX: I83.813 Varicose veins of bilateral lower extremities with pain (principal)
CPT/HCPCS: 36466

== ENCOUNTER 2024-04-30 09:18 | Outpatient (OUT) | payer MEDICARE, SELFPAY ==
[2024-04-30 09:09] VITALS: BMI 22.4
--- NOTE | 2024-04-30 09:09 | VEINCLINIC_ITS ---
Vital Signs 04/30/24 09:09 Height 5 ft 6 in Weight 63 kg BMI 22.4 Varicose Veins Patient in today for follow up ultrasound of left lower extremity following treatment of Varithena/microfoam completed on 04/22/24. Roel Castillo MD personally performed the services described in this documentation, as scribed by Fatou Cruz RDMS in my presence and it is both accurate and complete. Fatou Castillo RDMS, am scribing for, and in the presence of, Dr. Alxei Montez and in the presence of the patient. thigh: bilateral (symptoms equally bilateral), knee: bilateral, calf: bilateral, ankle: bilateral and ross: bilateral aching, cramping, dull and tender 2 20 years Worsened in recent months: Yes standing analgesics, elevating extremities, compression stockings and exercise Reports muscle spasms of leg, heaviness, limb pain, edema and leg edema History of lower extremity trauma: No Superficial thrombophlebitis: No Family history of varicose veins: yes Has patient had previous lower extremity venous surgery: No Patient has previously received the following treatment(s) for lower extremity varicose veins: Reports none Does patient have a history of : yes Does patient intend to have future pregnancies: no Has patient had lower extremity venous scan with relux testing: No Support hose used: Yes Problems walking or doing physical activity: Yes How does it affect you: often has to stop and rest and elevate legs/feet Do you walk much: Yes Do you stand much: Yes Review of Systems ROS Narrative Roel Castillo MD personally performed the services described in this documentation, as scribed by Fatou Cruz RDMS in my presence and it is both accurate and complete. Fatou Castillo RDMS, am scribing for, and in the presence of, Dr. Alexi Montez and in the presence of the patient. Status of ROS 10 or more systems reviewed and unremark able except as noted in history and below Cardiovascular Reports: edema Integumentary/Breast Reports: skin tenderness, skin swelling and changes in skin color Neurological Reports: numbness in extremities and weakness in extremities [facility] Medical History (Updated 04/16/24 @ 13:45 by Emilia Greer) Phlebitis and thrombophlebitis of superficial vessels of left lower extremity ?I80.02 - Phlebitis and thrombophlebitis of superficial vessels of left lower extremity (ICD-10) Phlebitis and thrombophlebitis of superficial vessels of right lower extremity ?I80.01 - Phlebitis and thrombophlebitis of superficial vessels of right lower extremity (ICD-10) Foreign object left in body during procedure ?T81.509A - Unspecified complication of foreign body accidentally left in body following unspecified procedure, initial encounter (ICD-10) Cataract ?H26.9 - Unspecified cataract (ICD-10) Glaucoma ?H40.9 - Unspecified glaucoma (ICD-10) Peripheral neuropathy ?G62.9 - Polyneuropathy, unspecified (ICD-10) Pain due to varicose veins of both lower extremities ?I83.813 - Varicose veins of bilateral lower extremities with pain (ICD-10) Surgical History (Updated 04/22/24 @ 12:18 by Vernon Garland) S/P sclerotherapy of varicose veins ?Z98.890 - Other specified postprocedural states (ICD-10) ?Z86.79 - Personal history of other diseases of the circulatory system (ICD- 10) Status post laser ablation of incompetent vein ?Z98.890 - Other specified postprocedural states (ICD-10) Status post laser ablation of incompetent vein ?Z98.890 - Other specified postprocedural states (ICD-10) Social History (Updated 03/14/24 @ 08:42 by Vernon Garland) Within the past year, how often did you have a drink containing alcohol: monthly or less Smoking status: Never smoker Non-prescribed substance use: denies use Meds Home Medications and Allergies Allergies Allergy/AdvReac Type Severity Reaction Status Date / Time naproxen (From Aleve) Allergy Intermediate Hives Verified 03/14/24 08:43 Exam Narrative Exam Narrative: IRoel MD personally performed the services described in this documentation, as scribed by Fatou Cruz RDMS in my presence and it is both accurate and complete. I, Fatou Cruz RDMS, am scribing for, and in the presence of, Dr. Alexi Montez and in the presence of the patient. Constitutional Documenting provider has reviewed patient's vital signs: yes Common normals: oriented x3 Cardio Peripheral pulses: posterior tibial pulses present and dorsalis pedis pulses present Extremity Common normals: normal capillary refill General: edema Right lower extremity: lower leg Right lower leg: inspection and palpation Left lower extremity: lower leg Left lower leg: inspection and palpation Neuro Common normals: oriented x3 Results Imaging Venous US: Radiologist's impression: Chemically induced thrombus in multiple varicose veins in right leg. No significant varicose veins remain. Roel Castillo MD personally performed the services described in this documentation, as scribed by Fatou Cruz RDMS in my presence and it is both accurate and complete. Fatou Castillo RDMS, am scribing for, and in the presence of, Dr. Alexi Montez and in the presence of the patient. Assessment and Plan Assessment and Plan (1) Phlebitis and thrombophlebitis of superficial vessels of right lower extremity: Plan Plan is for patient to return for Varithena/microfoam of left leg on 05/09/24. Roel Castillo MD personally performed the services described in this documentation, as scribed by Fatou Cruz RDMS in my presence and it is both accurate and complete. Fatou Castillo RDMS, am scribing for, and in the presence of, Dr. Alexi Montez and in the presence of the patient.
--- NOTE | 2024-04-30 09:23 | VEIN_ITS ---
Patient Name: KRISTY MORELOS MR#: [id number] : 1950 Exam Date: 04/30/2024 Ordering Doctor: DR ABRIL HOOVER M.D. RADIOLOGY REPORT PROCEDURE: [facility] EST [facility] - OFFICE VISIT FOLLOW UP COMPARISON: [facility], 04/17/2024. PROGRESS NOTES: The patient reports improvement in leg symptoms. There has been interval reduction in varicosities. The patient has followed our recommendations to walk 20-30 minutes once or twice per day since the procedure. Physical exam demonstrates decrease in varicosities of the leg. Persistent varicosities and spider veins are identified along the lower extremities. Review of the ultrasound performed the same day demonstrates occlusive thrombus extending throughout the treated vein(s), see separate report, consistent with a successful ablation. No thrombus extending into or beyond the saphenofemoral junction. The patient expressed a desire to proceed with treatment of remaining incompetent varicosities. The patient was informed that treatment was a process and would require several procedures/sessions. [facility]: 1. Successful ablation of the right leg treated branch saphenous vein(s). 2. Persistent varicose veins and lower extremity symptoms. PLAN: 1. Microfoam chemical ablation of left leg incompetent branch saphenous varicosities. Nurse notes, history and physical were reviewed and confirmed, see attached forms. The nurse was present throughout the physical exam and consultation Dictated by: Abril Hoover M.D. on 04/30/2024 at 10:13 Approved by: Abril Hoover M.D. on 04/30/2024 at 10:14
--- NOTE | 2024-04-30 09:23 | VEIN_ITS ---
Patient Name: KRISTY MORELOS MR#: [id number] : 1950 Exam Date: 04/30/2024 Ordering Doctor: DR ABRIL MONTEZ M.D. RADIOLOGY REPORT PROCEDURE: VC EXT VENOUS RT LMTD COMPARISON: VC EXT VENOUS RT LMTD, 03/26/2024. INDICATIONS: I80.01 - Phlebitis and thrombophlebitis of superficial veins right leg TECHNIQUE: Lower extremity pelayo scale and Duplex Doppler evaluation of the deep venous system from the inguinal ligament through the calf veins. FINDINGS: REGION: Right lower extremity. THROMBI: Negative for DVT. Chemically induced thrombus in multiple varicose veins in right leg. COMPRESSIBILITY: Non-compressible segments corresponding to thrombus FLOW: Areas of no flow corresponding to thrombus OTHER: No significant varicose veins remain. CONCLUSION: 1. Successful post ablation occlusion of right leg treated branch saphenous varicosities. Dictated by: Abril Montez M.D. on 04/30/2024 at 10:09 Approved by: Abril Montez M.D. on 04/30/2024 at 10:13
--- OUTSIDE RECORDS SUMMARY | 2024-04-30 09:29 | XMS_ITS | CCD ---
Author Organization [facility] Inform ion Partnership [facility] Care Team Providers Care Inside Sales Trainer Name Role Phone Park Carias Unavailable Unavailable Primary Care Provider UnavailGRACIE Rodriguez Attending Unavailable JOHN QUIROZ Attending Unavailable Arden Martinez DO Primary Care Provider Kenyon Tamayo Unavailable ARDEN MARTINEZ Primary Care Unavailab ALLISON Bocanegra Attending Unava ilable Allergies Allergy Classification Reported Allergen(s) Allergy Type Date of Onset Reaction(s) Facility (3 sources) Naproxen Drug Allergy 01-16-2012 [facility] [employer] Other (2 sources) Naproxen; Translations: [NAPROXEN SODIUM] Drug Allergy 01-16-2012 [facility] Medications Current Medications Medication Drug Class(es) [...] Once a day Active vit A-vit C-vit X-ceqd-wdstv r (EYE VITAMIN AND MINERALS) 7,160-113-100 ttwu-sj-nziw tab (1 source) vit A-vit C-vit H-nvwl-iisgys (EYE VITAMIN AND MINERALS) 7,160-113-100 ijpw-dw-juok tab Eye Vitamin and Minerals Active Completed/Discontinued [...] Test Name Value Interpretation Reference Range Facility [facility] 02-11-2024 CNOV Office Visit ([facility] ) BETINA MORELOS ([id number]) 1950 F Date Time Provider Department 02/11/24 11:00 AM ALLISON ORO [facility] During your visit today, we recorded the [...] with more than 50% of the total kcpo-qy-qzrs time of the visit in counseling / [...] Simple biliary-type cyst with associated fibrosis. . [facility] 11/26/2019 Shawn Hutchinson M.D., Ph.D. (Electronic Signature) [...] 3-6 months? 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 Normal [facility] No Panel Informationon 07-13 [facility] ALLIED HEALTHon 11-21-2019 ALLIED HEALTH HNO ID: [id number] Author: Ema Ferrer (Chaplain) Service: Healing Service Author Type: Store Lead Type: Allied Health Filed: 11/21/2019 7:57 AM Note Text: SPIRITUAL CARE Spiritual Care Visit Record Name: Betina Morelos Date: November 21, 2019 Type of Visit: Preoperative Prayer/Visit Visit was with (pt, dtr). Ministry Provided During Visit: Spiritual Presence / Support Notes: I introduced self. Pt is Lutheran. I gave her a blessing. Pt thanked for visit. Referrals: No referral made Will See: As Needed Only Follow-up Notes: Informed patient and family of Store Lead availability Store Lead Signature: Ema Ferrer Store Lead Student To contact the Spiritual Care Department: Please call [phone] or Page the On-Call Store Lead at pager [phone] Thank you for the opportunity to be of service. This is an electronically created document. IF PRINTED, PLEASE DO NOT REMOVE FROM THE CHART OR MODIFY PRINTED COPY. [facility] ANES Nerissa 11-21-2019 ANES POST HNO ID: [id number] Author: Aimee Quintero I Service: Anesthesiology Author [...] DATE: November 21, 2019 TIME: 12:19 PM [facility] ANES PREOPon 11-21-2019 ANES PREOP HNO ID: [id number] Author: Aimee Quintero I Service: Anesthesiology Author [...] Encounter Medication Sig - vit A-vit C-vit D-phnf-mjvtxh (EYE VITAMIN AND MINERALS) 7,160-113-100 wifb-or-jlzm tab Eye Vitamin and Minerals - timolol [...] November 21, 2019 TIME: 7:02 AM Normal [facility] CYTOLOGYon 11-21-2019 CYTOLOGY Specimen originated from [facility] Specimen #: [id number] Submitting Physician: ALLISON ORO SPECIMEN SUBMITTED A: [...] CYST FLUID, FINE NEEDLE ASPIRATE THIN PREP Non-Area Field Manager B: ABDOMINAL FLUID (THINPREP AND CELL BLOCK) THIN PREP Non-Area Field Manager, CELL BLOCK, H&E, Initial Date of Report: 11/21/2019 Date of Procedure: 11/21/2019 Date of Receipt: 11/21/2019 Submitted by: ALLISON ORO Location: [facility] Diagnostic interpretation performed at [facility], [address] [place] [address], [place] [address]. CLIA Number: [id number] [facility] HISTORY PHYSICALon 0 HISTORY PHYSICAL HNO ID: [id number] Author: Allison Oro Service: General Surgery Author [...] DATE: November 21, 2019 TIME: 7:13 AM PAGER:[phone] [facility] NURSING PROGon 11-21-2019 NURSING PROG HNO ID: [id number] Author: Yomaira DuranRn) KAILYN Montano Service: ? [...] note was completed by: Yomaira Montano RN [facility] NURSING PROG HNO ID: [id number] Author: Zarina (Rn) KAILYN Brownlee Service: ? [...] note was completed by: Hernan Brownlee RN [facility] OPERATIVE NOon 11-21-2019 OPERATIVE NO HNO ID: [id number] Author: Allison Oro Service: General Surgery Author Type: Physician Type: Operative Report Filed: 11/24/2019 10:33 AM Note Text: [facility] - Operative Report BETINA MORELOS : 1950 AGE: 69. SEX: F PATIENT TYPE: I HOSP SVC: GENS LOCATION: [facility] ATTENDING PHYSICIAN: Allison Oro MD CSN NUMBER: [id number] DATE OF SURGERY/PROCEDURE: 11/21/2019 INCISION/PROCEDURE START TIME: 7:55 am INCISION CLOSE/PROCEDURE END TIME: 8:59 am PREOPERATIVE DIAGNOSIS: Symptomatic right lobe liver cyst. POSTOPERATIVE DIAGNOSIS: Symptomatic right lobe liver cyst. SURGEON: Allison Oro MD BLAST FURNACE TENDER: No Additional Staff SURGERY/PROCEDURE: Laparoscopy and cyst [...] portions of the operation. 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 [...] None Electronically Signed By: Yomaira Montano RN [facility] SURGICAL PATHOLOGYon 020 SURGICAL PATHOLOGY Specimen originated from [facility] Specimen #: [id number] Submitting Physician: ALLISON ORO FINAL DIAGNOSIS Liver cyst wall, excision (A) - Simple biliary-type cyst with associated fibrosis. . [facility] 11/26/2019 Shawn Hutchinson M.D., Ph.D. (Electronic Signature) [...] thickness. No excrescences or papillations are identified. Social Group Worker sections are submitted in seven cassettes. LINA/carmen 11/21/2019 Gross examination performed at [facility], [address] [place] [address] Date of Report: 11/27/2019 Date of Procedure: 11/21/2019 Date of Receipt: 11/21/2019 Submitted by: ALLISON ORO Location: [facility] Diagnostic interpretation performed at [place] [address]. CLIA Number: [id number] [facility] Wound Culture/Stainon 2019 Wound Culture/Stain Sp. Request/Comment: - Eswab Smear Result - No organisms seen No Polymorphonuclear Leukocytes Culture Result - No growth 3 days [facility] Comment on above: Performed By: #### W CUL ####[facility] [place], [place] [phone] Wound Culture/Stain Sp. Request/Comment: - Eswab Smear Result - No organisms seen No Polymorphonuclear Leukocytes Culture Result - No growth 3 days [facility] Comment on above: Performed By: #### W CUL ####[facility] [place], [place] [phone] Confirm Blood Typeon 020 ABO/RH(D) Positive [facility] [id number] 11-18-2019 ECG01 NAME : RUPAL MORELOS PID : [id number] : 1950 Gender : Female Race : ORD : [id number] Procedure Date : Nov 18 2019 13:19:19 [...] ms QTC Calculation(Bazett) : 412 ms P Burt : -2 degrees R Burt : 51 degrees T Burt : -1 degrees Test Reason : Location : 49 : [facility] Overread By : DARON NAVARRO M.D. Edited By : DARON NAVARRO M.D. Referred By : BARBIE BURTON Acquired by : AMIRA WALLACE [facility] HOSPon 09-18-2019 HOSP Patient:Pola Morelos ee n M MRN: Height:5' 6.5 [patient reported[(1.689 m) Weight:152 lb (68.947 kg) Outpatient Medications as of 11/21/19: vit A-vit C-vit R-douc-iyzblm (EYE VITAMIN AND MINERALS) 7,160-113-100 aaya-qf-iaui tab timolol maleate (TIMOPTIC) 0.5 % ophthalmic [...] notes entered within the past 30 days [facility] Reminderson 04-15-2019 Reminders - From: Aurora Medina CMA To: [facility] - Reminders/Recalls; Sent: 12/04/2018 12:26:41 EDT Show up: 03/04/2019 12:26:00 EDT Subject: 2018 RECALL Due Date/Time: 04/20/2019 12:26:00 EST Reminder/Recall Colonoscopy recall [address] Azevedo Due 04/20/19 First Recall Letter Sent Clp Second Recall Letter [facility] Vital Signs Date Time Vital Sign Value Performing Clinician Facility 02-11-2024 11:09-0400 Body height 168.9 cm Allison Oro MD Work Phone: [facility] 02-11-2024 11:09-0400 Body mass index (BMI) [Ratio] 23.08 kg/m2 Allison Oro MD Work Phone: [facility] 02-11-2024 11:09-0400 Body temperature 96.91 [degF] Allison Oro MD Work Phone: [facility] 02-11-2024 11:090400 Body weight 65.86 kg Allison Oro MD Work Phone: [facility] 02-11-2024 11:09-0400 Diastolic blood pressure 68 mm[Hg] Allison Oro MD Work Phone: [facility] 02-11-2024 11:09-0400 Heart rate 83 /min Allison Oro MD Work Phone: [facility] 02-11-2024 11:09-0400 Systolic blood pressure 130 mm[Hg] Allison Oro MD Work Phone: [facility] 05-09-2023 12:40-0500 Body height 165.1 cm Park Carias Other [employer] Other 05-09-2023 12:40-0500 Body mass index (BMI) [Ratio] 22.46 kg/m2 Park Carias Other [employer] Other 05-09-2023 12:40-0500 Body temperature 98 [degF] Park Carias Other [employer] Other 05-09-2023 12:40-0500 Body weight 61.24 kg Park Carias Other [employer] Other 05-09-2023 12:40-0500 Diastolic blood pressure 65 mm[Hg] Park Carias Other [employer] Other 05-09-2023 12:40-0500 Respiratory rate 18 /min Park Carias Other [employer] Other 05-09-2023 12:40-0500 SaO2% (BldA) [Mass fraction] 98 % Park Carias Other [employer] Other 05-09-2023 12:40-0500 Systolic blood pressure 133 mm[Hg] Park Carias Other [employer] Other Encounters Encounter Date Encounter Type Care Provider Facility Start: 02-11-2024 End: 02-11-2024 ambulatory ARDEN LOPES [place] Facility:[facility] Start: 02-11-2024 End: 02-11-2024 Patient encounter procedure [...] 05-09-2023 End: 05-09-2023 ambulatory Park Aretha Other [employer] Other Start: 05-09-2023 Office outpatient ne w 20 minutes Park Carias [facility] Procedures Date Procedure Procedure Detail Performing Clinician Start: 07-13-2023 End: 07-13-2023 CRYOTHERAPY SKIN LESION Gracie LARIOS Work Phone: Start: 11-18-2019 Antibody screen Plan of Treatment Date Care Activity Detail Author Start: 02-15-2026 Urine microalbumin profile DTaP,Tdap,Td Vaccine (2 - Td or Tdap) [facility] Start: 07-14-2024 End: 07-14-2024 Patient encounter procedure 07/14/2024 10:50 AM EST Office Visit [facility] [address] [place] [address] Gracie Luna PA [address] [place], [place] [id number] [facility] Start: 02-03-2024 Covid-19 Vaccine ( season) Covid-19 Vaccine ( season) [facility] Start: 02-03-2024 Influenza vaccination Influenza Vacc ine (#1) [facility] Start: 07-13-2023 End: 07-13-2023 Patient encounter procedure 07/13/2023 11:50 AM EST Office Visit [facility] [address] [place] [address] Gracie Luna PA [address] [place] [address] Arrived [facility] Comment on above: Arrived Start: 06-04-2023 Advance Directive Discussion Advance Directive Discussion [facility] Start: 02-02-2023 Influenza vaccination Influenza Vacc ine (#1) [facility] Start: 2013 Pneumococcal Vaccine : 65+ (1 of 1 - PCV) Pneumococcal Vaccine: 65+ (1 of 1 - PCV) [facility] Start: 2013 Pneumococcal Vaccine : 65+ Years (1 - PCV) Pneumococcal Vaccine: 65+ Years (1 - PCV) [facility] Start: 2008 RSV Vaccine (1 - 1-d ose 60+ series) RSV Vaccine (1 - 1-dose 60+ series) [facility] Start: 1993 Diabetes Screening Diabetes Screenin g [facility] Start: 1993 Lipid panel Lipid Screening [facility] Start: 1993 Screening for malign ant neoplasm of colon [facility] Start: 1966 Anxiety Screening Anxiety Screening [facility] Start: 1966 Depression Screening Depression Scre ening [facility] Start: 1966 Hepatitis C screening Hepatitis C Sc reening [facility] Start: 1950 Screening for malign ant neoplasm of colon [facility] Payers Date Payer Category Payer Private Health Insurance [id number] 2020 Unknown [id number] 2018 Unknown [id number] 2013 Medicare [id number] 2.1 [id number] 2013 Medicare [id number] 1950 Unknown [id number] 1950 Unknown [id number] Social History Date Type Detail Facility Unknown if ever smoked [employer] Other Start: 07-13-2023 End: 02-11-2024 Sex Assigned At [facility] Other Tobacco smoking stat [facility] Tobacco smoking consumption unknown [facility] Start: 1950 Sex Assigned At Female [facility] Start: 07-12-2023 Gender identity Identifies as female gender (finding) [facility] Start: 07-13-2023 End: 02-11-2024 Tobacco smoking status NHIS Never smoked tobacco [facility] Start: 07-13-2023 End: 02-11-2024 Tobacco use and exposure Smokeless tobacco non-user [facility] Start: 07-13-2023 End: 02-11-2024 History of Social function [facility] Start: 02-11-2024 Alcoholic beverage intake Current drinker of alcohol (finding) [facility] How often to you hav e a drink containing alcohol? Monthly or less [facility] Average Number of Drinks Not on file [facility] Start: 11-17-2019 Alcohol Comment less than 1 drink per week [facility] Start: 1950 Sex assigned at Not on file [facility] Nurse Note 02-11-2024 Raissa Shook [...] 3-6 months? NO Bowels: regular patient declined box maker wood Raissa Shook LPN [facility] Nurse Note 02-11-2024 Raissa Shook [...] 3-6 months? NO Bowels: regular patient declined box maker wood Raissa Shook LPN documented in this encounter [facility] History of Present illness Narrative [...] with more than 50% of the total ziba-ic-txwm time of the visit in counseling / [...] Simple biliary-type cyst with associated fibrosis. . [facility] 11/26/2019 Shawn Hutchinson M.D., Ph.D. (Electronic Signature) [...] TIME: 11:43 AM documented in this encounter [facility] Progress note 02-11-2024 Note Date & Type Note Facility 02-11-2024 Note HNO ID: [id number] Author: ALLISON ORO MD Service: ? Author [...] with more than 50% of the total hygj-of-kwwh time of the visit in counseling / [...] Simple biliary-type cyst with associated fibrosis. . [facility] 11/26/2019 Shawn Hutchinson M.D., Ph.D. (Electronic Signature) [...] DATE: February 11, 2024 TIME: 11:43 AM [facility] History of Present illness Narrative [...] Examined Right arm Examined Patient wearing nail ghanaian, Denies dark streaks on toenails Left arm [...] limited to risks of scarring, darker or butcher meat pigmentary changes, recurrence, incomplete removal and infection. [...] limited to risks of scarring, darker or butcher meat pigmentary changes, recurrence, incomplete removal and infection. [...] Visit: 1 year documented in this encounter [facility] Evaluation note 05-09-2023 Note Date [...] no improvement in 2 to 3 days [facility] Other Evaluation note Note Date & Type [...] disease of liver documented in this encounter [facility] History general Narrative - Reported Note Date & Type Note Facility History general Narrative - Reported Type Medical History HYPERLIPIDEMIA Medical History MRI abdomen Surgical History SINUS SX 1999 [employer] Other Summary Purpose Family History No Family History Records FoundNo Family History Records FoundNo Family History Records FoundNo Family History Records Found Advance Directives No Advanced Directives Records FoundNo Advanced Directives Records FoundNo Advanced Directives Records FoundNo Advanced Directives Records Found Procedure Findings Note HNO ID: [id number] Author: Eleazar Martin Service: General Surgery Author Type: Resident Type: Brief Op Note Filed: 11/21/2019 9:09 AM Note Text: GENERAL SURGERY BRIEF OPERATIVE NOTE Betina Morelos [id number] LOG ID: [id number] Surgery/Procedure Date: 11/21/2019 Incision/Procedure Start Time: 7:55 AM Incision Close/Procedure End Time: 8:59 AM Surgeon(s)/Proceduralist(s) and Certified Ophthalmic Medical Technician(s): Surgeon(s) and Role: * Allison Oro [...] and content) DATE CREATED AUTHOR 04/15/2019 [facility] [employer] [facility] DATE CREATED AUTHOR AUTHOR'S ORGANIZ ATION 12/24/2019 [facility] DATE CREATED AUTHOR AUTHOR'S ORGANIZ ATION 10/20/2023 [facility] EPIC DATE CREATED AUTHOR AUTHOR'S MARGO DESHPANDE 02/12/2024 [facility] REASON FOR VISIT (unrecogniz ed [...] or prosecute any alcohol or drug abuse patient.[facility] Care Teams (unrecognized sec tion and content) Inside Sales Trainer Relationship Specialty Start Date End Date Arden Martinez DO [address] [address] PCP - General 12/23/07 Kenyon Tamayo [address] [place] [address] Referring Gastroenterology 09/04/19 FOR RECORDS PERTAINING TO [...] BE BASED ON THE PRIMARY CLINICAL RECORDS. [employer] provides no warranty or guarantee of the accuracy or completeness of information in this document.
--- NOTE | 2024-04-30 09:51 | W.VEIN ---
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
== END 2024-04-30 09:52 | disposition home or self-care (01) ==
PROVIDERS: PCP Radiology Diagnostic Radiology; Visit Provider Radiology Diagnostic Radiology
DX: I80.01 Phlebitis and thrombophlebitis of superficial vessels of right lower extremity (principal)
CPT/HCPCS: 93971; G0463

== ENCOUNTER 2024-05-09 07:56 | Outpatient (OUT) | payer MEDICARE, SELFPAY ==
--- NOTE | 2024-05-08 15:31 | VEINCLINIC_ITS ---
Vital Signs 05/09/24 08:10 BP 110/62 BP Location Right Brachial BP Position Sitting BP Cuff Size Adult BP Source Manual Cuff Respiration 16 Pulse 60 Pulse Source Monitor Pulse Oximetry (%) 98 Oxygen Delivery Method Room Air Varicose Veins Patient in today for microfoam chemical abaltion left leg. Roel Castillo MD personally performed the services described in this documentation, as scribed by Vernon Garland RN in my presence and it is both accurate and complete. Vernon Castillo RN, am scribing for, and in the presence of, Dr. Roel Montez and in the presence of the patient. thigh: bilateral (symptoms equally bilateral), knee: bilateral, calf: bilateral, ankle: bilateral and ross: bilateral aching, cramping, dull and tender 2 20 years Worsened in recent months: Yes standing analgesics, elevating extremities, compression stockings and exercise Reports muscle spasms of leg, heaviness, limb pain, edema and leg edema History of lower extremity trauma: No Superficial thrombophlebitis: No Family history of varicose veins: yes Has patient had previous lower extremity venous surgery: No Patient has previously received the following treatment(s) for lower extremity varicose veins: Reports none Does patient have a history of : yes Does patient intend to have future pregnancies: no Has patient had lower extremity venous scan with relux testing: No Support hose used: Yes Problems walking or doing physical activity: Yes How does it affect you: often has to stop and rest and elevate legs/feet Do you walk much: Yes Do you stand much: Yes Review of Systems ROS Narrative Roel Castillo MD personally performed the services described in this documentation, as scribed by Vernon Garland RN in my presence and it is both accurate and complete. Vernon Castillo RN, am scribing for, and in the presence of, Dr. Roel Montez and in the presence of the patient. Status of ROS 10 or more systems reviewed and unremark able except as noted in history and below Cardiovascular Reports: edema Integumentary/Breast Reports: skin tenderness, skin swelling and changes in skin color Neurological Reports: numbness in extremities and weakness in extremities [facility] Medical History (Updated 04/16/24 @ 13:45 by Emilia Greer) Phlebitis and thrombophlebitis of superficial vessels of left lower extremity ?I80.02 - Phlebitis and thrombophlebitis of superficial vessels of left lower extremity (ICD-10) Phlebitis and thrombophlebitis of superficial vessels of right lower extremity ?I80.01 - Phlebitis and thrombophlebitis of superficial vessels of right lower extremity (ICD-10) Foreign object left in body during procedure ?T81.509A - Unspecified complication of foreign body accidentally left in body following unspecified procedure, initial encounter (ICD-10) Cataract ?H26.9 - Unspecified cataract (ICD-10) Glaucoma ?H40.9 - Unspecified glaucoma (ICD-10) Peripheral neuropathy ?G62.9 - Polyneuropathy, unspecified (ICD-10) Pain due to varicose veins of both lower extremities ?I83.813 - Varicose veins of bilateral lower extremities with pain (ICD-10) Surgical History (Updated 05/09/24 @ 11:08 by Vernon Garland) S/P sclerotherapy of varicose veins ?Z98.890 - Other specified postprocedural states (ICD-10) ?Z86.79 - Personal history of other diseases of the circulatory system (ICD- 10) S/P sclerotherapy of varicose veins ?Z98.890 - Other specified postprocedural states (ICD-10) ?Z86.79 - Personal history of other diseases of the circulatory system (ICD- 10) Status post laser ablation of incompetent vein ?Z98.890 - Other specified postprocedural states (ICD-10) Status post laser ablation of incompetent vein ?Z98.890 - Other specified postprocedural states (ICD-10) Social History (Updated 03/14/24 @ 08:42 by Vernon Garland) Within the past year, how often did you have a drink containing alcohol: monthly or less Smoking status: Never smoker Non-prescribed substance use: denies use Meds Home Medications and Allergies Allergies Allergy/AdvReac Type Severity Reaction Status Date / Time naproxen (From Aleve) Allergy Intermediate Hives Verified 03/14/24 08:43 Exam Narrative Exam Narrative: IRoel MD personally performed the services described in this documentation, as scribed by Vernon Garland RN in my presence and it is both accurate and complete. I, Vernon Garland RN, am scribing for, and in the presence of, Dr. Roel Montez and in the presence of the patient. Constitutional Documenting provider has reviewed patient's vital signs: yes Common normals: oriented x3 Cardio Peripheral pulses: posterior tibial pulses present and dorsalis pedis pulses present Extremity Common normals: normal capillary refill General: edema Right lower extremity: lower leg Right lower leg: inspection and palpation Left lower extremity: lower leg Left lower leg: inspection and palpation Neuro Common normals: oriented x3 Assessment and Plan Assessment and Plan (1) Pain due to varicose veins of both lower extremities: Plan f/u evaluation with physician along with left leg limited u/s Roel Castillo MD personally performed the services described in this documentation, as scribed by Vernon Garland RN in my presence and it is both accurate and complete. Vernon Castillo RN, am scribing for, and in the presence of, Dr. Roel Montez and in the presence of the patient. Procedures Procedure Instructions Procedures leg microfoam chemical ablation/Varithena: Risks and benefits of the procedure were discussed at length and informed written consent was obtained.? Time-out procedure was performed and the correct patient and procedure were confirmed.? Staff present during time-out: Vernon Garland RN and Roel Montez MD.? Patient prepped and procedure performed in usual sterile fashion.? Patient was placed in Trendelenburg prior to Polidocanol/Varithena injections. Sclerosing Agent:??3 cc 1% Polidocanol/Varithena Site Injected: left lecc varithena admnistered in to a 3mm varicose vein proximal medial lower leg Number of Injections:? 1 The patient tolerated the procedure well without complication.? Hemostasis was obtained and thigh-high compression stocking was applied with foam pads.? Instructed patient to wear stocking for at least 96 hours and sleep with it and only remove for showering.? The patient was instructed to? wear stocking for 2 weeks.? Patient verbalizes understanding and states they will comply.? Patient was given post-procedure instructions. Patient was discharged in good condition.? Scheduled to undergo limited venous ultrasound and? exam on 05/12/2024. Roel Castillo MD personally performed the services described in this documentation, as scribed by Vernon Garland RN in my presence and it is both accurate and complete. I, Vernon Garland RN, am scribing for, and in the presence of, Dr. Roel Montez and in the presence of the patient.
--- NOTE | 2024-05-08 15:36 | P.DS_ITS ---
Discharge Plan Discharge Disposition: Home, Self-Care Outpatient Diagnostics: VC Facility EST LMTD (Routine) Timeframe: 2 Weeks Facility: [facility] - Location: [facility] Ordered By: Roel Montez VC EXT Venous LT Limited (Routine) Timeframe: 2 Weeks Facility: [facility] - Location: Vein Center Ordered By: Roel Montez Follow Up Appointments: 05/12/2024 Plan of Treatment: f/u evaluation with physician along with left leg limited u/s Patient Instructions: Polidocanol (By injection) (Asclera, Varithena) Print Language: Dominican Discharge Date/Time: 05/09/24 11:10
--- NOTE | 2024-05-09 08:01 | VEIN_ITS ---
[address] [address] Patient Name: KRISTY MORELOS MRN: [id number] date: 1950 Sex: F Assigned Patient Location: Current Patient Location: Accession/Order Number: [id number] Exam Date: 05/09/2024 08:03 Report Date: 05/09/2024 09:33 At the request of: ABRIL HOOVER Procedure: VC INJ Foam Sclerosant WUS CORRECTIONS UNIT SUPERVISOR PROCEDURE: VC INJ Foam Sclerosant WUS CORRECTIONS UNIT SUPERVISOR HISTORY: I83.813 - Varicose veins of bilateral lower extremities w... Pre-operative Diagnosis: CEAP class C2 venous insufficiency with pain, tenderness, edema and incompetent branch saphenous vein(s), chronic venous insufficiency left leg secondary to venous incompetence Post-operative Diagnosis: CEAP class C2 venous insufficiency with pain, tenderness, edema and incompetent branch saphenous vein(s), chronic venous insufficiency left leg secondary to venous incompetence Procedure Performed: 1. Ultrasound-guided microfoam chemical ablation with Varithenaregistered 2. Intraoperative ultrasound guidance Physician: Abril Hoover M.D. Anesthesia: None Indications for Procedure: 74 year old female. Symptoms including lower extremity pain, swelling, dilated bulging veins for many years despite conservative medical therapy including medical compression stockings, exercise and analgesics. Prior procedures include endovenous laser ablation and microfoam chemical ablation. Multiple incompetent varicosities of the left leg. Duplex scan showed reflux and enlarged diameters up to 3 mm. The patient underwent informed consent including management options where the complications of infection, bleeding, pain, and skin injury were discussed. Particular attention was spent discussing thrombus extension and deep vein thrombosis as well as the possibility of pulmonary embolus and treatment with oral or injectable blood thinners. Procedure: The patient walked to the procedure room. All applicable staff donned appropriate apparel. A procedure timeout was performed to confirm correct patient, correct extremity, correct procedure, and correct room set-up including presence of all applicable supplies, devices, and drugs. A duplex ultrasound, performed by myself confirmed the location and incompetence of branch saphenous varicosities and their course was marked on the skin together with the dilated tributaries. The extent of treatment of the vein and the associated varicosities was determined through ultrasound mapping. The skin was prepped and then punctured with a butterfly needle and advanced under ultrasound guidance. The Varithenaregistered canister was activated and the canister was primed and purged as required in the instructions for use. Varithenaregistered was drawn into a sterile syringe. Varithenaregistered was slowly administered at 0.5-1.0 cc/second with close observation by ultrasound of its course in the vessels. Total volume utilized was: 3 mL injected into a 3 mm varicosity proximal medial lower leg. Following administration of Varithenaregistered the leg was elevated and the patient was asked to repeatedly dorsiflex the ankle to limit flow of Varithenaregistered into perforating veins. Once appropriate spasm had been confirmed in the treated veins, the vascular catheter was removed from the leg and light pressure was applied over the puncture site for hemostasis. The common femoral and deep superficial veins were then evaluated for flow and compressibility prior to dressing placement. The lower extremity was kept elevated at 45 degrees above the horizontal and cording material was applied over the saphenous segments and tributaries to allow for eccentric compression over the target vessels including the targeted saphenous vein(s). A multilayer dressing was applied consisting of foam pads, coban and thigh-high 20-30 mm Hg compression elastic support hose were placed on the patient. The leg was lowered only after compression had been applied and the patient was immediately ambulatory. The patient ambulated 10 minutes under supervision and was without apparent concerns at time of release. Post-care instructions include advising patient to keep post-treatment bandages in place and dry for 48 hours, avoid extended periods of inactivity, avoid heavy exercise for one week, wear compression stockings on the treated leg continuously for two weeks, to walk daily for 10 minutes over the next month. The patient was instructed to take an anti-inflammatory medicine as needed and to follow up for color duplex scan of the Saphenous veins, the treated branch saphenous varicosities, the adjacent deep veins, and additional treatment within 7 days. PERSONNEL: Vernon Garland RN Electronically authenticated by: ABRIL HOOVER Date: 05/09/2024 09:33
[2024-05-09 08:10] VITALS: BP 110/62; PULSE 60; O2SAT 98
--- OUTSIDE RECORDS SUMMARY | 2024-05-09 08:16 | XMS_ITS | CCD ---
Author Organization [facility] Inform ion Partnership [facility] Care Team Providers Care University Services Program Associate Name Role Phone Park Carias Unavailable Unavailable Primary Care Provider UnavailGRACIE Rodriguez Attending Unavailable JOHN QUIROZ Attending Unavailable Arden Martinez DO Primary Care Provider Kenyon Tamayo Unavailable ARDEN MARTINEZ Primary Care Unavailab ALLISON Bocanegra Attending Unava ilable Allergies Allergy Classification Reported Allergen(s) Allergy Type Date of Onset Reaction(s) Facility (3 sources) Naproxen Drug Allergy 01-16-2012 [facility] [employer] Other (2 sources) Naproxen; Translations: [NAPROXEN SODIUM] Drug Allergy 01-16-2012 [facility] Medications Current Medications Medication Drug Class(es) Dates [...] Once a day Active vit A-vit C-vit Q-epfj-velsn r (EYE VITAMIN AND MINERALS) 7,160-113-100 dvpw-nj-zeda tab (1 source) vit A-vit C-vit V-zwdz-grvnls (EYE VITAMIN AND MINERALS) 7,160-113-100 fmnk-wc-hsbi tab Eye Vitamin and Minerals Active Completed/Discontinued [...] Test Name Value Interpretation Reference Range Facility [facility] 02-11-2024 CNOV Office Visit ([facility] ) BETINA MORELOS ([id number]) 1950 F Date Time Provider Department 02/11/24 11:00 AM ALLISON ORO [facility] During your visit today, we [...] with more than 50% of the total rwvb-bj-npen time of the visit in counseling / [...] Simple biliary-type cyst with associated fibrosis. . [facility] [place] 11/26/2019 Shawn Hutchinson M.D., [...] 3-6 months? 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 Normal [facility] No Panel Informationon 07-13 [facility] ALLIED HEALTHon 11-21-2019 ALLIED HEALTH HNO ID: [id number] Author: Ema Ferrer (Chaplain) Service: Healing Service Author Type: Manager Patient Type: Allied Health Filed: 11/21/2019 7:57 AM Note Text: SPIRITUAL CARE Spiritual Care Visit Record Name: Betina Morelos Date: November 21, 2019 Type of Visit: Preoperative Prayer/Visit Visit was with (pt, dtr). Ministry Provided During Visit: Spiritual Presence / Support Notes: I introduced self. Pt is Yazdanism. I gave her a blessing. Pt thanked for visit. Referrals: No referral made Will See: As Needed Only Follow-up Notes: Informed patient and family of Manager Patient availability Manager Patient Signature: Ema Ferrer Manager Patient Student To contact the Spiritual Care Department: Please call [phone] or Page the On-Call Manager Patient at pager [phone] Thank you for the opportunity to be of service. This is an electronically created document. IF PRINTED, PLEASE DO NOT REMOVE FROM THE CHART OR MODIFY PRINTED COPY. [facility] ANES Nerissa 11-21-2019 ANES POST HNO ID: [id number] Author: Aimee Quintero I Service: Anesthesiology Author [...] DATE: November 21, 2019 TIME: 12:19 PM [facility] ANES PREOPon 11-21-2019 ANES PREOP HNO ID: [id number] Author: Aimee Quintero I Service: Anesthesiology Author [...] Encounter Medication Sig - vit A-vit C-vit I-qwtg-xbqqro (EYE VITAMIN AND MINERALS) 7,160-113-100 pxek-ed-jjow tab Eye Vitamin and Minerals - timolol [...] November 21, 2019 TIME: 7:02 AM Normal [facility] CYTOLOGYon 11-21-2019 CYTOLOGY Specimen originated from [facility] Specimen #: [id number] Submitting Physician: ALLISON ORO SPECIMEN SUBMITTED A: [...] CYST FLUID, FINE NEEDLE ASPIRATE THIN PREP Non-Wild Life Manager B: ABDOMINAL FLUID (THINPREP AND CELL BLOCK) THIN PREP Non-Wild Life Manager, CELL BLOCK, H&E, Initial Date of Report: 11/21/2019 Date of Procedure: 11/21/2019 Date of Receipt: 11/21/2019 Submitted by: ALLISON ORO Location: [facility] Diagnostic interpretation performed at [facility], [address] [place] [address], [place] [address]. CLIA Number: [id number] [facility] HISTORY PHYSICALon 0 HISTORY PHYSICAL HNO ID: [id number] Author: Allison Oro Service: General Surgery Author [...] a result of the 08/19/19 order by [facility] Director Darling Espino M.D. to [...] DATE: November 21, 2019 TIME: 7:13 AM PAGER:[phone] [facility] NURSING PROGon 11-21-2019 NURSING PROG HNO ID: [id number] Author: Yomaira DuranRn) KAILYN Montano Service: ? [...] note was completed by: Yomaira Montano RN [facility] NURSING PROG HNO ID: [id number] Author: Zarina (Rn) KAILYN Brownlee Service: ? [...] note was completed by: Hernan Brownlee RN [facility] OPERATIVE NOon 11-21-2019 OPERATIVE NO HNO ID: [id number] Author: Allison Oro Service: General Surgery Author Type: Physician Type: Operative Report Filed: 11/24/2019 10:33 AM Note Text: [facility] - Operative Report BETINA MORELOS : 1950 AGE: 69. SEX: F PATIENT TYPE: I HOSP SVC: GENS LOCATION: [facility] ATTENDING PHYSICIAN: Allison Oro MD CSN NUMBER: [id number] DATE OF SURGERY/PROCEDURE: 11/21/2019 INCISION/PROCEDURE START TIME: 7:55 am INCISION CLOSE/PROCEDURE END TIME: 8:59 am PREOPERATIVE DIAGNOSIS: Symptomatic right lobe liver cyst. POSTOPERATIVE DIAGNOSIS: Symptomatic right lobe liver cyst. SURGEON: Allison Oro MD PUMP STATION OPERATOR: No Additional Staff SURGERY/PROCEDURE: Laparoscopy and cyst [...] portions of the operation. Allison Oro MD CTS:[id number] /[id number] cc: [facility] PROGRESSon 11-21-2019 PROGRESS HNO ID: [id number] Author: Allison Oro Service: General Surgery Author Type: Physician Type: Progress Notes Filed: 11/21/2019 7:35 AM Note Text: labs from Jul 2019 Na 140 K 4.5 ingot caster 0.76 Alt 7 Ast 15 T Bili 1.2 WBC 5.3 Hgb 13.7 Hct 43.3 Plt 205 [facility] PT EDon 11-21-2019 PT ED HNO ID: [id number] Author: Yomaira (Rn) KAILYN Montano Service: ? [...] None Electronically Signed By: Yomaira Montano RN [facility] SURGICAL PATHOLOGYon 020 SURGICAL PATHOLOGY Specimen originated from [facility] Specimen #: [id number] Submitting Physician: ALLISON ORO FINAL DIAGNOSIS Liver cyst wall, excision (A) - Simple biliary-type cyst with associated fibrosis. . [facility] [place] 11/26/2019 Shawn Hutchinson M.D., [...] thickness. No excrescences or papillations are identified. Senior Pastor sections are submitted in seven cassettes. LINA/carmen 11/21/2019 Gross examination performed at [facility], [address] [place] [address] Date of Report: 11/27/2019 Date of Procedure: 11/21/2019 Date of Receipt: 11/21/2019 Submitted by: ALLISON ORO Location: [facility] Diagnostic interpretation performed at [place] [address]. CLIA Number: [id number] [facility] Wound Culture/Stainon 2019 Wound Culture/Stain Sp. Request/Comment: - Eswab Smear Result - No organisms seen No Polymorphonuclear Leukocytes Culture Result - No growth 3 days [facility] Comment on above: Performed By: #### W CUL ####[facility] [place], [place] [phone] Wound Culture/Stain Sp. Request/Comment: - Eswab Smear Result - No organisms seen No Polymorphonuclear Leukocytes Culture Result - No growth 3 days [facility] Comment on above: Performed By: #### W CUL ####[facility] [place], [place] [phone] Confirm Blood Typeon 020 ABO/RH(D) Positive [facility] [id number] 11-18-2019 ECG01 NAME : RUPAL MORELOS PID : [id number] : 1950 Gender : Female Race : ORD : [id number] Procedure Date : Nov 18 2019 13:19:19 [...] ms QTC Calculation(Bazett) : 412 ms P Mant[place] : -2 degrees R Mantua : 51 degrees T Mantua : -1 degrees Test Reason : Location : 49 : [facility] Overread By : DARON NAVARRO M.D. Edited By : DARON NAVARRO M.D. Referred By : BARBIE BURTON Acquired by : AMIRA WALLACE [facility] HOSPon 09-18-2019 HOSP Patient:Pola Morelos ee n M MRN: Height:5' 6.5 [patient reported[(1.689 m) Weight:152 lb (68.947 kg) Outpatient Medications as of 11/21/19: vit A-vit C-vit T-eogm-sqroun (EYE VITAMIN AND MINERALS) 7,160-113-100 ahmp-kp-ezhw tab timolol maleate (TIMOPTIC) 0.5 % ophthalmic [...] notes entered within the past 30 days [facility] Reminderson 04-15-2019 Reminders - From: Aurora Medina CMA To: [facility] - Reminders/Recalls; Sent: 12/04/2018 12:26:41 EDT Show up: 03/04/2019 12:26:00 EDT Subject: 2018 RECALL Due Date/Time: 04/20/2019 12:26:00 EST Reminder/Recall Colonoscopy recall [address] Azevedo Due 04/20/19 First Recall Letter Sent Clp Second Recall Letter [facility] Vital Signs Date Time Vital Sign Value Performing Clinician Facility 02-11-2024 11:09-0400 Body height 168.9 cm Allison Oro MD Work Phone: [facility] 02-11-2024 11:09-0400 Body mass index (BMI) [Ratio] 23.08 kg/m2 Allison Oro MD Work Phone: [facility] 02-11-2024 11:09-0400 Body temperature 96.91 [degF] Allison Oro MD Work Phone: [facility] 02-11-2024 11:090400 Body weight 65.86 kg Allison Oro MD Work Phone: [facility] 02-11-2024 11:09-0400 Diastolic blood pressure 68 mm[Hg] Allison Oro MD Work Phone: [facility] 02-11-2024 11:09-0400 Heart rate 83 /min Allison Oro MD Work Phone: [facility] 02-11-2024 11:09-0400 Systolic blood pressure 130 mm[Hg] Allison Oro MD Work Phone: [facility] 05-09-2023 12:40-0500 Body height 165.1 cm Park Carias Other [facility] Other 05-09-2023 12:40-0500 Body mass index (BMI) [Ratio] 22.46 kg/m2 [place] Carias Other [facility] Other 05-09-2023 12:40-0500 Body temperature 98 [degF] [place] Carias Other [facility] Other 05-09-2023 12:40-0500 Body weight 61.24 kg Park Carias Other [facility] Other 05-09-2023 12:40-0500 Diastolic blood pressure 65 mm[Hg] Park Carias Other [facility] Other 05-09-2023 12:40-0500 Respiratory rate 18 /min [place] Carias Other [facility] Other 05-09-2023 12:40-0500 SaO2% (BldA) [Mass fraction] 98 % [place] Carias Other [facility] Other 05-09-2023 12:40-0500 Systolic blood pressure 133 mm[Hg] [place] Carias Other [facility] Other Encounters Encounter Date Encounter Type Care Provider Facility Start: 02-11-2024 End: 02-11-2024 ambulatory ARDEN [facility]ES [place] Facility:[facility] Start: 02-11-2024 End: 02-11-2024 Patient encounter [...] DERM Start: 07-13-2023 End: 07-13-2023 ambulatory GRACIE ULNA Not Available Start: 07-13-2023 End: 07-13-2023 Office outpatient visit 15 minutes Gracie LARIOS Work Phone: [facility] Comment on above: Melanocytic nevus of trunk (Primary Dx); Seborrheic keratosis; Actinic keratosis; Inflamed seborrheic keratosis Start: 05-09-2023 End: 05-09-2023 ambulatory Park Aretha Other [facility] Other Start: 05-09-2023 Office outpatient ne w 20 minutes Park Carias [facility] Procedures Date Procedure Procedure Detail Performing Clinician Start: 07-13-2023 End: 07-13-2023 CRYOTHERAPY SKIN LESION Gracie LARIOS Work Phone: Start: 11-18-2019 Antibody screen Plan of Treatment Date Care Activity Detail Author Start: 02-15-2026 Urine microalbumin profile DTaP,Tdap,Td Vaccine (2 - Td or Tdap) [facility] Start: 07-14-2024 End: 07-14-2024 Patient encounter procedure 07/14/2024 10:50 AM EST Office Visit [facility] [address] [place] [address] Gracie uLna PA [address] [place], [place] [id number] [facility] Start: 02-03-2024 Covid-19 Vaccine ( season) Covid-19 Vaccine ( season) [facility] Start: 02-03-2024 Influenza vaccination Influenza Vacc ine (#1) [facility] Start: 07-13-2023 End: 07-13-2023 Patient encounter procedure 07/13/2023 11:50 AM EST Office Visit [facility] [address] [place] [address] Gracie Luna PA [address] [place] [address] Arrived [facility] Comment on above: Arrived Start: 06-04-2023 Advance Directive Discussion Advance Directive Discussion [facility] Start: 02-02-2023 Influenza vaccination Influenza Vacc ine (#1) [facility] Start: 2013 Pneumococcal Vaccine : 65+ (1 of 1 - PCV) Pneumococcal Vaccine: 65+ (1 of 1 - PCV) [facility] Start: 2013 Pneumococcal Vaccine : 65+ Years (1 - PCV) Pneumococcal Vaccine: 65+ Years (1 - PCV) [facility] Start: 2008 RSV Vaccine (1 - 1-d ose 60+ series) RSV Vaccine (1 - 1-dose 60+ series) [facility] Start: 1993 Diabetes Screening Diabetes Screenin g [facility] Start: 1993 Lipid panel Lipid Screening [facility] Start: 1993 Screening for malign ant neoplasm of colon [facility] Start: 1966 Anxiety Screening Anxiety Screening [facility] Start: 1966 Depression Screening Depression Scre ening [facility] Start: 1966 Hepatitis C screening Hepatitis C Sc reening [facility] Start: 1950 Screening for malign ant neoplasm of colon [facility] Payers Date Payer Category Payer Private Health Insurance [id number] 2020 Unknown [id number] 2018 Unknown [id number] 2013 Medicare [id number] 2.1 [id number] 2013 Medicare [id number] 1950 Unknown [id number] 1950 Unknown [id number] Social History Date Type Detail Facility Unknown if ever smoked [facility] Other Start: 07-13-2023 End: 02-11-2024 Sex Assigned At [employer] Other Tobacco smoking stat [facility] Tobacco smoking consumption unknown [facility] Start: 1950 Sex Assigned At Female [facility] Start: 07-12-2023 Gender identity Identifies as female gender (finding) [facility] Start: 07-13-2023 End: 02-11-2024 Tobacco smoking status NHIS Never smoked tobacco [facility] Start: 07-13-2023 End: 02-11-2024 Tobacco use and exposure Smokeless tobacco non-user [facility] Start: 07-13-2023 End: 02-11-2024 History of Social function [facility] Start: 02-11-2024 Alcoholic beverage intake Current drinker of alcohol (finding) [facility] How often to you hav e a drink containing alcohol? Monthly or less [facility] Average Number of Drinks Not on file [facility] Start: 11-17-2019 Alcohol Comment less than 1 drink per week [facility] Start: 1950 Sex assigned at Not on file [facility] Nurse Note 02-11-2024 Raissa Shook LPN [...] 3-6 months? NO Bowels: regular patient declined exotic dancer Raissa Shook LPN [facility] Nurse Note 02-11-2024 Raissa Shook LPN [...] 3-6 months? NO Bowels: regular patient declined exotic dancer Raissa Shook LPN documented in this encounter [facility] History of Present illness Narrative 02-11-2024 [...] with more than 50% of the total rftd-au-ouhq time of the visit in counseling / [...] Simple biliary-type cyst with associated fibrosis. . [facility] [place] 11/26/2019 Shawn Hutchinson M.D., [...] TIME: 11:43 AM documented in this encounter [facility] Progress note 02-11-2024 Note Date & Type Note Facility 02-11-2024 Note HNO ID: [id number] Author: ALLISON ORO MD Service: ? Author [...] with more than 50% of the total huus-cd-twzj time of the visit in counseling / [...] Simple biliary-type cyst with associated fibrosis. . [facility] [place] 11/26/2019 Shawn Hutchinson M.D., [...] DATE: February 11, 2024 TIME: 11:43 AM [facility] History of Present illness Narrative 07-13-2023 HARRIET [...] Examined Right arm Examined Patient wearing nail tajik, Denies dark streaks on toenails Left arm [...] limited to risks of scarring, darker or deputy sheriff custody pigmentary changes, recurrence, incomplete removal and infection. [...] limited to risks of scarring, darker or deputy sheriff custody pigmentary changes, recurrence, incomplete removal and infection. [...] Visit: 1 year documented in this encounter [facility] Evaluation note 05-09-2023 Note Date & [...] no improvement in 2 to 3 days [facility] Other Evaluation note Note Date & Type [...] disease of liver documented in this encounter [facility] History general Narrative - Reported Note Date & Type Note Facility History general Narrative - Reported Type Medical History HYPERLIPIDEMIA Medical History MRI abdomen Surgical History SINUS SX 1999 [facility] Other Summary Purpose Family History No Family History Records FoundNo Family History Records FoundNo Family History Records FoundNo Family History Records Found Advance Directives No Advanced Directives Records FoundNo Advanced Directives Records FoundNo Advanced Directives Records FoundNo Advanced Directives Records Found Procedure Findings Note HNO ID: [id number] Author: Eleazar Maritn Service: General Surgery Author Type: Resident Type: Brief Op Note Filed: 11/21/2019 9:09 AM Note Text: GENERAL SURGERY BRIEF OPERATIVE NOTE Betina Morelos [id number] LOG ID: [id number] Surgery/Procedure Date: 11/21/2019 Incision/Procedure Start Time: 7:55 AM Incision Close/Procedure End Time: 8:59 AM Surgeon(s)/Proceduralist(s) and Voltage Inspector(s): Surgeon(s) and Role: * Allison Oro - [...] section and content) DATE CREATED AUTHOR 04/15/2019 [facility] DATE CREATED AUTHOR AUTHOR'S ORGANIZ ATION 12/24/2019 [facility] DATE CREATED AUTHOR AUTHOR'S ORGANIZ ATION 10/20/2023 [facility] EPIC DATE CREATED AUTHOR AUTHOR'S MARGO DESHPANDE 02/12/2024 [facility] REASON FOR VISIT (unrecogniz ed section and content) Reason Comments Skin Check Reason Comments New Patient Source Comments (unrecognize d section and content) In the event this informatio n is protected by the Federal Confidentiality of Alcohol and Drug Abuse Patient Records regulations: The Federal rules restrict any use of the information to criminally investigate or prosecute any alcohol or drug abuse patient.[facility] Care Teams (unrecognized sec tion and content) University Services Program Associate Relationship Specialty Start Date End Date Arden Martinez DO [address] [address] PCP - General 12/23/07 Kenyon Tamayo [address] [facility] [address] [place] [address] Referring Gastroenterology 09/04/19 FOR RECORDS PERTAINING TO [...] BE BASED ON THE PRIMARY CLINICAL RECORDS. [employer] provides no warranty or guarantee of the accuracy or completeness of information in this document.
== END 2024-05-09 11:10 | disposition home or self-care (01) ==
LOC: VC 08:00
PROVIDERS: PCP Radiology Diagnostic Radiology; Visit Provider Radiology Diagnostic Radiology
DX: I83.813 Varicose veins of bilateral lower extremities with pain (principal)
CPT/HCPCS: 36466

== ENCOUNTER 2024-05-13 07:53 | Outpatient (OUT) | payer MEDICARE, SELFPAY ==
--- NOTE | 2024-05-13 07:36 | VEINCLINIC_ITS ---
Varicose Veins Patient in today for follow up ultrasound post microfoam chemical abaltion left leg. Roel Castillo MD personally performed the services described in this documentation, as scribed by Emilia Greer RVT, RDMS in my presence and it is both accurate and complete. Emilia Castillo RVT, RDMS, am scribing for, and in the presence of, Dr. Roel Montez and in the presence of the patient. thigh: bilateral (symptoms equally bilateral), knee: bilateral, calf: bilateral, ankle: bilateral and ross: bilateral aching, cramping, dull and tender 2 20 years Worsened in recent months: Yes standing analgesics, elevating extremities, compression stockings and exercise Reports muscle spasms of leg, heaviness, limb pain, edema and leg edema History of lower extremity trauma: No Superficial thrombophlebitis: No Family history of varicose veins: yes Has patient had previous lower extremity venous surgery: No Patient has previously received the following treatment(s) for lower extremity varicose veins: Reports none Does patient have a history of : yes Does patient intend to have future pregnancies: no Has patient had lower extremity venous scan with relux testing: No Support hose used: Yes Problems walking or doing physical activity: Yes How does it affect you: often has to stop and rest and elevate legs/feet Do you walk much: Yes Do you stand much: Yes Review of Systems ROS Narrative Roel Castillo MD personally performed the services described in this documentation, as scribed by Emilia Greer RVT, RDMS in my presence and it is both accurate and complete. Emilia Castillo RVT, RDMS, am scribing for, and in the presence of, Dr. Roel Montez and in the presence of the patient. Status of ROS 10 or more systems reviewed and unremark able except as noted in history and below Cardiovascular Reports: edema Integumentary/Breast Reports: skin tenderness, skin swelling and changes in skin color Neurological Reports: numbness in extremities and weakness in extremities [facility] Medical History (Updated 04/16/24 @ 13:45 by Emilia Greer) Phlebitis and thrombophlebitis of superficial vessels of left lower extremity ?I80.02 - Phlebitis and thrombophlebitis of superficial vessels of left lower extremity (ICD-10) Phlebitis and thrombophlebitis of superficial vessels of right lower extremity ?I80.01 - Phlebitis and thrombophlebitis of superficial vessels of right lower extremity (ICD-10) Foreign object left in body during procedure ?T81.509A - Unspecified complication of foreign body accidentally left in body following unspecified procedure, initial encounter (ICD-10) Cataract ?H26.9 - Unspecified cataract (ICD-10) Glaucoma ?H40.9 - Unspecified glaucoma (ICD-10) Peripheral neuropathy ?G62.9 - Polyneuropathy, unspecified (ICD-10) Pain due to varicose veins of both lower extremities ?I83.813 - Varicose veins of bilateral lower extremities with pain (ICD-10) Surgical History (Updated 05/09/24 @ 11:08 by Vernon Garland) S/P sclerotherapy of varicose veins ?Z98.890 - Other specified postprocedural states (ICD-10) ?Z86.79 - Personal history of other diseases of the circulatory system (ICD- 10) S/P sclerotherapy of varicose veins ?Z98.890 - Other specified postprocedural states (ICD-10) ?Z86.79 - Personal history of other diseases of the circulatory system (ICD- 10) Status post laser ablation of incompetent vein ?Z98.890 - Other specified postprocedural states (ICD-10) Status post laser ablation of incompetent vein ?Z98.890 - Other specified postprocedural states (ICD-10) Social History (Updated 03/14/24 @ 08:42 by Vernon Garland) Within the past year, how often did you have a drink containing alcohol: monthly or less Smoking status: Never smoker Non-prescribed substance use: denies use Meds Home Medications and Allergies Allergies Allergy/AdvReac Type Severity Reaction Status Date / Time naproxen (From Aleve) Allergy Intermediate Hives Verified 03/14/24 08:43 Exam Narrative Exam Narrative: IRoel MD personally performed the services described in this documentation, as scribed by Emilia Greer RVT, RDMS in my presence and it is both accurate and complete. I, Emilia Greer RVT, RDMS, am scribing for, and in the presence of, Dr. Roel Montez and in the presence of the patient. 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 Assessment and Plan Assessment and Plan (1) Phlebitis and thrombophlebitis of superficial vessels of left lower extremity: Plan Patient in today for follow up ultrasound of lower extremity following treatment of Varithena/microfoam completed on 05/09/24. IRoel MD personally performed the services described in this documentation, as scribed by Emilia Greer RVT, RDMS in my presence and it is both accurate and complete. Emilia Castillo RVT, RDMS, am scribing for, and in the presence of, Dr. Roel Montez and in the presence of the patient.
--- NOTE | 2024-05-13 07:39 | W.VEIN ---
Discharge Plan Discharge Disposition: Home, Self-Care Outpatient Diagnostics: VC INJ Sclerosing SOLMULT Vein (Routine) Timeframe: 2 Weeks Facility: [facility] - Location: Vein Center Ordered By: Roel Montez Follow Up Appointments: Plan of Treatment: Sclerotherapy Print Language: Angolan Discharge Date/Time: 05/13/24 10:11
--- NOTE | 2024-05-13 07:59 | VEIN_ITS ---
Patient Name: KRISTY MORELOS MR#: [id number] : 1950 Exam Date: 05/13/2024 Ordering Doctor: DR ABRIL MONTEZ M.D. RADIOLOGY REPORT PROCEDURE: VC EXT VENOUS LT LIMITED COMPARISON: VC EXT VENOUS LT LIMITED, 04/17/2024. INDICATIONS: I80.02 - Phlebitis and thrombophlebitis of superficial ve... TECHNIQUE: Lower extremity pelayo scale and Duplex Doppler evaluation of the deep venous system from the inguinal ligament through the calf veins. FINDINGS: REGION: Left lower extremity. THROMBI: Negative for DVT. 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 COMPRESSIBILITY: Non-compressible segments corresponding to thrombus FLOW: Areas of no flow corresponding to thrombus OTHER: No varicose veins remain. CONCLUSION: 1. Successful post ablation occlusion of left leg treated branch saphenous varicosities. Dictated by: Abril Montez M.D. on 05/13/2024 at 08:39 Approved by: Abril Montez M.D. on 05/13/2024 at 08:41
--- NOTE | 2024-05-13 07:59 | VEIN_ITS ---
Patient Name: KRISTY MORELOS MR#: [id number] : 1950 Exam Date: 05/13/2024 Ordering Doctor: DR ABRIL HOOVER M.D. RADIOLOGY REPORT PROCEDURE: [facility] - OFFICE VISIT FOLLOW UP [facility] PROGRESS NOTES: The patient reports improvement in leg symptoms. There has been interval reduction in varicosities. The patient has followed our recommendations to walk 20-30 minutes once or twice per day since the procedure. Physical exam demonstrates decrease in varicosities of the leg. Persistent reticular and spider veins are identified along the legs bilaterally. Review of the ultrasound performed the same day demonstrates occlusive thrombus extending throughout the treated vein(s), see separate report, consistent with a successful ablation. No thrombus extending into or beyond the saphenofemoral junction. The patient expressed a desire to proceed with treatment of reticular and spider veins. The patient was informed that treatment was a process and would require approximately 2 procedures/sessions. VEIN/[facility] EST TD IMPRESSION: 1. Successful ablation of the left leg treated branch saphenous vein(s). 2. Persistent reticular and spider veins and mild lower extremity symptoms. PLAN: 1. Bilateral lower extremity sclerotherapy beginning with right leg. Nurse notes, history and physical were reviewed and confirmed, see attached forms. The nurse was present throughout the physical exam and consultation Dictated by: Abril Hoover M.D. on 05/13/2024 at 08:41 Approved by: Abril Hoover M.D. on 05/13/2024 at 08:42
== END 2024-05-13 10:11 | disposition home or self-care (01) ==
LOC: VC 07:57
PROVIDERS: PCP Radiology Diagnostic Radiology; Visit Provider Radiology Diagnostic Radiology
DX: I80.02 Phlebitis and thrombophlebitis of superficial vessels of left lower extremity (principal)
CPT/HCPCS: 93971; G0463

== ENCOUNTER 2024-06-02 07:57 | Outpatient (OUT) | payer MEDICARE, SELFPAY ==
--- NOTE | 2024-06-02 07:18 | V.VEINS.HP ---
Vital Signs 06/02/24 08:29 BP 112/74 BP Location Right Brachial BP Position Sitting BP Cuff Size Adult BP Source Manual Cuff Respiration 16 Pulse 84 Pulse Source Monitor Pulse Oximetry (%) 98 Oxygen Delivery Method Room Air Varicose Veins Patient in today for sclerotherapy Roel Castillo MD personally performed the services described in this documentation, as scribed by Vernon Garland RN in my presence and it is both accurate and complete. Vernon Castillo RN, am scribing for, and in the presence of, Dr. Roel Montez and in the presence of the patient. thigh: bilateral (symptoms equally bilateral), knee: bilateral, calf: bilateral, ankle: bilateral and ross: bilateral aching, cramping, dull and tender 2 20 years Worsened in recent months: Yes standing analgesics, elevating extremities, compression stockings and exercise Reports muscle spasms of leg, heaviness, limb pain, edema and leg edema History of lower extremity trauma: No Superficial thrombophlebitis: No Family history of varicose veins: yes Has patient had previous lower extremity venous surgery: No Patient has previously received the following treatment(s) for lower extremity varicose veins: Reports none Does patient have a history of : yes Does patient intend to have future pregnancies: no Has patient had lower extremity venous scan with relux testing: No Support hose used: Yes Problems walking or doing physical activity: Yes How does it affect you: often has to stop and rest and elevate legs/feet Do you walk much: Yes Do you stand much: Yes Review of Systems ROS Narrative Roel Castillo MD personally performed the services described in this documentation, as scribed by Vernon Garland RN in my presence and it is both accurate and complete. Vernon Castillo RN, am scribing for, and in the presence of, Dr. Roel Montez and in the presence of the patient. Status of ROS 10 or more systems reviewed and unremarkable except as noted in history and below Cardiovascular Reports: edema Integumentary/Breast Reports: skin tenderness, skin swelling and changes in skin color Neurological Reports: numbness in extremities and weakness in extremities [facility] Medical History (Updated 04/16/24 @ 13:45 by Emilia Greer) Phlebitis and thrombophlebitis of superficial vessels of left lower extremity ?I80.02 - Phlebitis and thrombophlebitis of superficial vessels of left lower extremity (ICD-10) Phlebitis and thrombophlebitis of superficial vessels of right lower extremity ?I80.01 - Phlebitis and thrombophlebitis of superficial vessels of right lower extremity (ICD-10) Foreign object left in body during procedure ?T81.509A - Unspecified complication of foreign body accidentally left in body following unspecified procedure, initial encounter (ICD-10) Cataract ?H26.9 - Unspecified cataract (ICD-10) Glaucoma ?H40.9 - Unspecified glaucoma (ICD-10) Peripheral neuropathy ?G62.9 - Polyneuropathy, unspecified (ICD-10) Pain due to varicose veins of both lower extremities ?I83.813 - Varicose veins of bilateral lower extremities with pain (ICD-10) Surgical History (Updated 06/02/24 @ 08:37 by Vernon Garland) S/P sclerotherapy of varicose veins ?Z98.890 - Other specified postprocedural states (ICD-10) ?Z86.79 - Personal history of other diseases of the circulatory system (ICD-10) S/P sclerotherapy of varicose veins ?Z98.890 - Other specified postprocedural states (ICD-10) ?Z86.79 - Personal history of other diseases of the circulatory system (ICD-10) S/P sclerotherapy of varicose veins ?Z98.890 - Other specified postprocedural states (ICD-10) ?Z86.79 - Personal history of other diseases of the circulatory system (ICD-10) Status post laser ablation of incompetent vein ?Z98.890 - Other specified postprocedural states (ICD-10) Status post laser ablation of incompetent vein ?Z98.890 - Other specified postprocedural states (ICD-10) Social History (Updated 03/14/24 @ 08:42 by Vernon Garland) Within the past year, how often did you have a drink containing alcohol: monthly or less Smoking status: Never smoker Non-prescribed substance use: denies use Meds Home Medications and Allergies Allergies Allergy/AdvReac Type Severity Reaction Status Date / Time naproxen (From Aleve) Allergy Intermediate Hives Verified 03/14/24 08:43 Exam Narrative Exam Narrative: Roel Castillo MD personally performed the services described in this documentation, as scribed by Vernon Garland RN in my presence and it is both accurate and complete. Vernon Castillo RN, am scribing for, and in the presence of, Dr. Roel Montez and in the presence of the patient. 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 Assessment and Plan Assessment and Plan (1) Pain due to varicose veins of both lower extremities: Plan Additional sclerotherapy Roel Castillo MD personally performed the services described in this documentation, as scribed by Vernon Garland RN in my presence and it is both accurate and complete. Vernon Castillo RN, am scribing for, and in the presence of, Dr. Roel Montez and in the presence of the patient. Procedures Procedure Instructions Procedures sclerotherapy: Risks and benefits of the procedure were discussed at length and informed written consent was obtained.? Time-out procedure was performed and the correct patient and procedure were confirmed.? Staff present during time-out: Vernon Garland RN and Roel Montez MD.? Patient prepped and procedure performed in usual sterile fashion. Injections performed by Dr. Montez and Vernon Garland RN Sclerosing Agent:?? 4cc 0.5% Polidocanol Site Injected: right leg Number of Injections: 28 Anesthesia: Supercooled air The patient tolerated the procedure well without complication.? Hemostasis was obtained and thigh-high compression stocking was applied by patient.? Instructed patient to wear stocking for at least 96 hours and sleep with it and only remove for showering.? Will wear stocking for 2 weeks.? The patient verbalizes understanding and states they will comply.? Patient was given post-procedure instructions. Patient was discharged in good condition.? Scheduled to undergo additional injection sclerotherapy on 06/10/2024. Roel Castillo MD personally performed the services described in this documentation, as scribed by Vernon Garland RN in my presence and it is both accurate and complete. I, Vernon Garland RN, am scribing for, and in the presence of, Dr. Roel Montez and in the presence of the patient.
--- NOTE | 2024-06-02 07:21 | W.VEIN ---
Discharge Plan Discharge Disposition: Home, Self-Care Outpatient Diagnostics: VC INJ Sclerosing SOLMULT Vein (Routine) Timeframe: 2 Weeks Facility: [facility] - Location: Vein Center Ordered By: James Davis Follow Up Appointments: 05/10/2024 Print Language: Estonian
--- NOTE | 2024-06-02 07:59 | VEIN_ITS ---
[address] [address] Patient Name: KRISTY MORELOS MRN: [id number] date: 1950 Sex: F Assigned Patient Location: Current Patient Location: Accession/Order Number: [id number] Exam Date: 06/02/2024 07:59 Report Date: 06/02/2024 09:00 At the request of: ABRIL HOOVER Procedure: VC INJ Sclerosing SOLMULT Vein EXAMINATION: VC INJ Sclerosing SOLMULT Vein HISTORY: I83.813 - Varicose veins of bilateral lower extremities w... The risks and benefits of the procedure were explained at length to the patient and informed written consent was obtained. The procedure was performed under sterile technique. The patient's leg was wrapped with Coban and postprocedural verbal and written instructions provided. Vernon Garland RN was present and assisted. SCLEROSANT: 2mL 0.5% Polidocanol. VEIN(S) INJECTED: 24 veins in the right leg. VISUALIZATION: Ultrasound was not used to visualize the sclerosant. ANESTHESIA: Supercooled air. COMPLICATIONS: None. Electronically authenticated by: ABRIL HOOVER Date: 06/02/2024 09:00
--- OUTSIDE RECORDS SUMMARY | 2024-06-02 08:20 | XMS_ITS | CCD ---
Author Organization [facility] Inform ion Partnership [facility] Care Team Providers Care Ethanol Operator Name Role Phone Park Carias Unavailable Unavailable Primary Care Provider UnavailGRACIE Rodriguez Attending Unavailable JOHN QUIROZ Attending Unavailable Arden Martinez DO Primary Care Provider Kenyon Tamayo Unavailable ARDEN MARTINEZ Primary Care Unavailab ALLISON Bocanegra Attending Unava ilable Allergies Allergy Classification Reported Allergen(s) Allergy Type Date of Onset Reaction(s) Facility (3 sources) Naproxen Drug Allergy 01-16-2012 [facility] Other (2 sources) Naproxen; Translations: [NAPROXEN SODIUM] Drug Allergy 01-16-2012 [facility] Medications Current Medications Medication Drug [...] Once a day Active vit A-vit C-vit I-jlun-nqswd r (EYE VITAMIN AND MINERALS) 7,160-113-100 qjzx-cx-pwko tab (1 source) vit A-vit C-vit R-yzwr-txuzuc (EYE VITAMIN AND MINERALS) 7,160-113-100 evqn-ln-jqyy tab Eye Vitamin and Minerals Active Completed/Discontinued [...] Test Name Value Interpretation Reference Range Facility [facility] 02-11-2024 CNOV Office Visit ([facility] ) BETINA MORELOS ([id number]) 1950 F Date Time Provider Department 02/11/24 11:00 AM ALLISON ORO [facility] During your visit today, we recorded [...] with more than 50% of the total eltf-pp-uful time of the visit in counseling / [...] Simple biliary-type cyst with associated fibrosis. . [facility] 11/26/2019 Shawn Hutchinson M.D., [...] 3-6 months? 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 Normal [facility] No Panel Informationon 07-13 [facility] ALLIED HEALTHon 11-21-2019 ALLIED HEALTH HNO ID: [id number] Author: Ema Ferrer (Chaplain) Service: Healing Service Author Type: Utilization Supervisor Type: Allied Health Filed: 11/21/2019 7:57 AM Note Text: SPIRITUAL CARE Spiritual Care Visit Record Name: Betina Morelos Date: November 21, 2019 Type of Visit: Preoperative Prayer/Visit Visit was with (pt, dtr). Ministry Provided During Visit: Spiritual Presence / Support Notes: I introduced self. Pt is Tenriism. I gave her a blessing. Pt thanked for visit. Referrals: No referral made Will See: As Needed Only Follow-up Notes: Informed patient and family of Utilization Supervisor availability Utilization Supervisor Signature: Ema Ferrer Utilization Supervisor Student To contact the Spiritual Care Department: Please call [phone] or Page the On-Call Utilization Supervisor at pager [phone] Thank you for the opportunity to be of service. This is an electronically created document. IF PRINTED, PLEASE DO NOT REMOVE FROM THE CHART OR MODIFY PRINTED COPY. [facility] ANES Nerissa 11-21-2019 ANES POST HNO ID: [id number] Author: Aimee Quintero I Service: Anesthesiology Author [...] DATE: November 21, 2019 TIME: 12:19 PM [facility] ANES PREOPon 11-21-2019 ANES PREOP HNO ID: [id number] Author: Aimee Quintero I Service: Anesthesiology Author [...] Encounter Medication Sig - vit A-vit C-vit I-qhfp-nfemws (EYE VITAMIN AND MINERALS) 7,160-113-100 rjbe-ea-evyy tab Eye Vitamin and Minerals - timolol [...] November 21, 2019 TIME: 7:02 AM Normal [facility] CYTOLOGYon 11-21-2019 CYTOLOGY Specimen originated from [facility] Specimen #: [id number] Submitting Physician: ALLISON ORO SPECIMEN SUBMITTED A: [...] CYST FLUID, FINE NEEDLE ASPIRATE THIN PREP Non-Strap Stitcher B: ABDOMINAL FLUID (THINPREP AND CELL BLOCK) THIN PREP Non-Strap Stitcher, CELL BLOCK, H&E, Initial Date of Report: 11/21/2019 Date of Procedure: 11/21/2019 Date of Receipt: 11/21/2019 Submitted by: ALLISON ORO Location: [facility] Diagnostic interpretation performed at [facility], [address] [place] [address], [place] [address]. CLIA Number: [id number] [facility] HISTORY PHYSICALon 0 HISTORY PHYSICAL HNO ID: [id number] Author: Allison Oro Service: General Surgery Author [...] result of the 08/19/19 order by [facility] of Health Director Darling Espino M.D. to [...] DATE: November 21, 2019 TIME: 7:13 AM PAGER:[phone] [facility] NURSING PROGon 11-21-2019 NURSING PROG HNO ID: [id number] Author: Yomaira DuranRn) KAILYN Montano Service: ? [...] note was completed by: Yomaira Montano RN [facility] NURSING PROG HNO ID: [id number] Author: Zarina (Rn) KAILYN Brownlee Service: ? [...] time and alert and oriented. 1100 Dr. Martni at the bedside speaking with patient. He gave ok for patient to be discharged when she meets criteria for Phase 2. This note was completed by: Hernan Brownlee RN [facility] OPERATIVE NOon 11-21-2019 OPERATIVE NO HNO ID: [id number] Author: Allison Oro Service: General Surgery Author Type: Physician Type: Operative Report Filed: 11/24/2019 10:33 AM Note Text: [facility] - Operative Report BETINA MORELOS : 1950 AGE: 69. SEX: F PATIENT TYPE: I HOSP SVC: GENS LOCATION: [facility] ATTENDING PHYSICIAN: Allison Oro MD CSN NUMBER: [id number] DATE OF SURGERY/PROCEDURE: 11/21/2019 INCISION/PROCEDURE START TIME: 7:55 am INCISION CLOSE/PROCEDURE END TIME: 8:59 am PREOPERATIVE DIAGNOSIS: Symptomatic right lobe liver cyst. POSTOPERATIVE DIAGNOSIS: Symptomatic right lobe liver cyst. SURGEON: Allison Oro MD FRAMING CARPENTER: No Additional Staff SURGERY/PROCEDURE: Laparoscopy and cyst [...] portions of the operation. 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 [...] None Electronically Signed By: Yomaira Montano RN [facility] SURGICAL PATHOLOGYon 020 SURGICAL PATHOLOGY Specimen originated from [facility] Specimen #: [id number] Submitting Physician: ALLISON ORO FINAL DIAGNOSIS Liver cyst wall, excision (A) - Simple biliary-type cyst with associated fibrosis. . [facility] 11/26/2019 Shawn Hutchinson M.D., [...] thickness. No excrescences or papillations are identified. Pathology Laboratory Director sections are submitted in seven cassettes. LINA/carmen 11/21/2019 Gross examination performed at [facility], [address] [place] [address] Date of Report: 11/27/2019 Date of Procedure: 11/21/2019 Date of Receipt: 11/21/2019 Submitted by: ALLISON ORO Location: [facility] Diagnostic interpretation performed at [place] [address]. CLIA Number: [id number] [facility] Wound Culture/Stainon 2019 Wound Culture/Stain Sp. Request/Comment: - Eswab Smear Result - No organisms seen No Polymorphonuclear Leukocytes Culture Result - No growth 3 days [facility] Comment on above: Performed By: #### W CUL ####[facility] [place], [place] [phone] Wound Culture/Stain Sp. Request/Comment: - Eswab Smear Result - No organisms seen No Polymorphonuclear Leukocytes Culture Result - No growth 3 days [facility] Comment on above: Performed By: #### W CUL ####[facility] [place], [place] [phone] Confirm Blood Typeon 020 ABO/RH(D) Positive [facility] [id number] 11-18-2019 ECG01 NAME : RUPAL MORELOS PID : [id number] : 1950 Gender : Female Race : ORD : [id number] Procedure Date : Nov 18 2019 13:19:19 [...] ms QTC Calculation(Bazett) : 412 ms P [place] : -2 degrees R [place] : 51 degrees T [place] : -1 degrees Test Reason : Location : 49 : [facility] Overread By : DARON NAVARRO M.D. Edited By : DARON NAVARRO M.D. Referred By : BARBIE BURTON Acquired by : AMIRA WALLACE [facility] HOSPon 09-18-2019 HOSP Patient:Pola Morelos ee n M MRN: Height:5' 6.5 [patient reported[(1.689 m) Weight:152 lb (68.947 kg) Outpatient Medications as of 11/21/19: vit A-vit C-vit D-wcbx-tfutco (EYE VITAMIN AND MINERALS) 7,160-113-100 khbs-lw-qtqs tab timolol maleate (TIMOPTIC) 0.5 % ophthalmic [...] notes entered within the past 30 days [facility] Reminderson 04-15-2019 Reminders - From: Aurora Medina CMA To: [facility] - Reminders/Recalls; Sent: 12/04/2018 12:26:41 EDT Show up: 03/04/2019 12:26:00 EDT Subject: 2018 RECALL Due Date/Time: 04/20/2019 12:26:00 EST Reminder/Recall Colonoscopy recall [address] Azevedo Due 04/20/19 First Recall Letter Sent Clp Second Recall Letter [facility] Vital Signs Date Time Vital Sign Value Performing Clinician Facility 02-11-2024 11:09-0400 Body height 168.9 cm Allison Oro MD Work Phone: [facility] 02-11-2024 11:09-0400 Body mass index (BMI) [Ratio] 23.08 kg/m2 Allison Oro MD Work Phone: [facility] 02-11-2024 11:09-0400 Body temperature 96.91 [degF] Allison Oro MD Work Phone: [facility] 02-11-2024 11:090400 Body weight 65.86 kg Allison Oro MD Work Phone: [facility] 02-11-2024 11:09-0400 Diastolic blood pressure 68 mm[Hg] Allison Oro MD Work Phone: [facility] 02-11-2024 11:09-0400 Heart rate 83 /min Allison Oro MD Work Phone: [facility] 02-11-2024 11:09-0400 Systolic blood pressure 130 mm[Hg] Allison Oro MD Work Phone: [facility] 05-09-2023 12:40-0500 Body height 165.1 cm Park Carias Other [facility] Other 05-09-2023 12:40-0500 Body mass index (BMI) [Ratio] 22.46 kg/m2 Park Carias Other [facility] Other 05-09-2023 12:40-0500 Body temperature 98 [degF] Park Carias Other [facility] Other 05-09-2023 12:40-0500 Body weight 61.24 kg Park Carias Other [facility] Other 05-09-2023 12:40-0500 Diastolic blood pressure 65 mm[Hg] Park Carias Other [facility] Other 05-09-2023 12:40-0500 Respiratory rate 18 /min Park Carias Other [facility] Other 05-09-2023 12:40-0500 SaO2% (BldA) [Mass fraction] 98 % Park Carias Other [facility] Other 05-09-2023 12:40-0500 Systolic blood pressure 133 mm[Hg] Park Carias Other [facility] Other Encounters Encounter Date Encounter Type Care Provider Facility Start: 02-11-2024 End: 02-11-2024 ambulatory ARDEN LOPES REMER Facility:[facility] Start: 02-11-2024 End: 02-11-2024 Patient [...] 05-09-2023 End: 05-09-2023 ambulatory Park Aretha Other [facility] Other Start: 05-09-2023 Office outpatient ne w 20 minutes Park Carias [facility] Procedures Date Procedure Procedure Detail Performing Clinician Start: 07-13-2023 End: 07-13-2023 CRYOTHERAPY SKIN LESION Gracie LARIOS Work Phone: Start: 11-18-2019 Antibody screen Plan of Treatment Date Care Activity Detail Author Start: 02-15-2026 Urine microalbumin profile DTaP,Tdap,Td Vaccine (2 - Td or Tdap) [facility] Start: 07-14-2024 End: 07-14-2024 Patient encounter procedure 07/14/2024 10:50 AM EST Office Visit [facility] [address] [place] [address] Gracie Luna PA [address] [place], [place] [id number] [facility] Start: 02-03-2024 Covid-19 Vaccine ( season) Covid-19 Vaccine ( season) [facility] Start: 02-03-2024 Influenza vaccination Influenza Vacc ine (#1) [facility] Start: 07-13-2023 End: 07-13-2023 Patient encounter procedure 07/13/2023 11:50 AM EST Office Visit [facility] [address] [place] [address] Gracie Luna PA [address] [place] [address] Arrived [facility] Comment on above: Arrived Start: 06-04-2023 Advance Directive Discussion Advance Directive Discussion [facility] Start: 02-02-2023 Influenza vaccination Influenza Vacc ine (#1) [facility] Start: 2013 Pneumococcal Vaccine : 65+ (1 of 1 - PCV) Pneumococcal Vaccine: 65+ (1 of 1 - PCV) [facility] Start: 2013 Pneumococcal Vaccine : 65+ Years (1 - PCV) Pneumococcal Vaccine: 65+ Years (1 - PCV) [facility] Start: 2008 RSV Vaccine (1 - 1-d ose 60+ series) RSV Vaccine (1 - 1-dose 60+ series) [facility] Start: 1993 Diabetes Screening Diabetes Screenin g [facility] Start: 1993 Lipid panel Lipid Screening [facility] Start: 1993 Screening for malign ant neoplasm of colon [facility] Start: 1966 Anxiety Screening Anxiety Screening [facility] Start: 1966 Depression Screening Depression Scre ening [facility] Start: 1966 Hepatitis C screening Hepatitis C Sc reening [facility] Start: 1948 Screening for malign ant neoplasm of colon [facility] Payers Date Payer Category Payer Private Health Insurance [id number] 2020 Unknown [id number] 2018 Unknown [id number] 2013 Medicare [id number] 2.1 [id number] 2013 Medicare [id number] 1950 Unknown [id number] 1950 Unknown [id number] Social History Date Type Detail Facility Unknown if ever smoked [facility] Other Start: 07-13-2023 End: 02-11-2024 Sex Assigned At [facility] Other Tobacco smoking stat [facility] Tobacco smoking consumption unknown [facility] Start: 1950 Sex Assigned At Female [facility] Start: 07-12-2023 Gender identity Identifies as female gender (finding) [facility] Start: 07-13-2023 End: 02-11-2024 Tobacco smoking status NHIS Never smoked tobacco [facility] Start: 07-13-2023 End: 02-11-2024 Tobacco use and exposure Smokeless tobacco non-user [facility] Start: 07-13-2023 End: 02-11-2024 History of Social function [facility] Start: 02-11-2024 Alcoholic beverage intake Current drinker of alcohol (finding) [facility] How often to you hav e a drink containing alcohol? Monthly or less [facility] Average Number of Drinks Not on file [facility] Start: 11-17-2019 Alcohol Comment less than 1 drink per week [facility] Start: 1950 Sex assigned at Not on file [facility] Nurse Note 02-11-2024 Raissa Shook LPN [...] 3-6 months? NO Bowels: regular patient declined attache Raissa Shook LPN [facility] Nurse Note 02-11-2024 Raissa Shook LPN [...] 3-6 months? NO Bowels: regular patient declined attache Raissa Shook LPN documented in this encounter [facility] History of Present illness Narrative 02-11-2024 [...] with more than 50% of the total tupy-lq-badd time of the visit in counseling / [...] Simple biliary-type cyst with associated fibrosis. . [facility] 11/26/2019 Shawn Hutchinson M.D., [...] TIME: 11:43 AM documented in this encounter [facility] Progress note 02-11-2024 Note Date & Type Note Facility 02-11-2024 Note HNO ID: [id number] Author: ALLISON ORO MD Service: ? Author [...] with more than 50% of the total iusb-aw-gego time of the visit in counseling / [...] Simple biliary-type cyst with associated fibrosis. . [facility] 11/26/2019 Shawn Hutchinson M.D., [...] DATE: February 11, 2024 TIME: 11:43 AM [facility] History of Present illness Narrative 07-13-2023 HARRIET [...] Examined Right arm Examined Patient wearing nail puerto rican, Denies dark streaks on toenails Left arm [...] limited to risks of scarring, darker or animal trapper pigmentary changes, recurrence, incomplete removal and infection. [...] limited to risks of scarring, darker or animal trapper pigmentary changes, recurrence, incomplete removal and infection. [...] Visit: 1 year documented in this encounter [facility] Evaluation note 05-09-2023 Note [...] no improvement in 2 to 3 days [facility] Other Evaluation note Note Date & Type [...] disease of liver documented in this encounter [facility] History general Narrative - Reported Note Date & Type Note Facility History general Narrative - Reported Type Medical History HYPERLIPIDEMIA Medical History MRI abdomen Surgical History SINUS SX 1999 [facility] Other Summary Purpose Family History No Family History Records FoundNo Family History Records FoundNo Family History Records FoundNo Family History Records Found Advance Directives No Advanced Directives Records FoundNo Advanced Directives Records FoundNo Advanced Directives Records FoundNo Advanced Directives Records Found Procedure Findings Note HNO ID: [id number] Author: Eleazar Martin Service: General Surgery Author Type: Resident Type: Brief Op Note Filed: 11/21/2019 9:09 AM Note Text: GENERAL SURGERY BRIEF OPERATIVE NOTE Betina Morelos [id number] LOG ID: [id number] Surgery/Procedure Date: 11/21/2019 Incision/Procedure Start Time: 7:55 AM Incision Close/Procedure End Time: 8:59 AM Surgeon(s)/Proceduralist(s) and Retail Business Development Manager(s): Surgeon(s) and Role: * Allison Oro - [...] and content) DATE CREATED AUTHOR 04/15/2019 [facility] [facility] DATE CREATED AUTHOR AUTHOR'S ORGANIZ ATION 12/24/2019 [facility] DATE CREATED AUTHOR AUTHOR'S ORGANIZ ATION 10/20/2023 [facility] EPIC DATE CREATED AUTHOR AUTHOR'S MARGO DESHPANDE 02/12/2024 [facility] REASON FOR VISIT (unrecogniz ed section and content) Reason Comments Skin Check Reason Comments New Patient Source Comments (unrecognize d section and content) In the event this informatio n is protected by the Federal Confidentiality of Alcohol and Drug Abuse Patient Records regulations: The Federal rules restrict any use of the information to criminally investigate or prosecute any alcohol or drug abuse patient.[facility] Care Teams (unrecognized sec tion and content) Ethanol Operator Relationship Specialty Start Date End Date Arden Martinez DO [address] [facility] [place] [address] PCP - General 12/23/07 Kenyon Tamayo [address] [facility] [address] [place] [address] Referring Gastroenterology 09/04/19 FOR RECORDS PERTAINING TO [...] BE BASED ON THE PRIMARY CLINICAL RECORDS. [employer] provides no warranty or guarantee of the accuracy or completeness of information in this document.
[2024-06-02 08:29] VITALS: BP 112/74; PULSE 84; O2SAT 98
== END 2024-06-02 08:38 | disposition home or self-care (01) ==
LOC: VC 07:58
PROVIDERS: PCP Radiology Diagnostic Radiology; Visit Provider Radiology Diagnostic Radiology
DX: I83.813 Varicose veins of bilateral lower extremities with pain (principal)
CPT/HCPCS: 36471

== ENCOUNTER 2024-06-06 12:51 | Outpatient (OUT) | payer MEDICARE, OTHER, SELFPAY ==
--- NOTE | 2024-06-06 12:54 | US_ITS ---
Patient Name: KRISTY MORELOS MR#: [id number] : 1950 Exam Date: 06/06/2024 Ordering Doctor: DR DAVID ELDRIDGE RADIOLOGY REPORT PROCEDURE: MM TOMOSYNTHESIS DIAGNOSTIC LT, 06/06/2024, 12:54 US BREAST LT LIMITED, 06/06/2024, 13:10 COMPARISON: MM DIAGNOSTIC MAMMO UNILAT LT, 12/12/2023. MM TOMOSYNTHESIS SCREENING BI, 11/27/2023. INDICATIONS: Abnormal Mammogram Calculator Name NCI Breast Cancer Risk Assessment Tool 5 Year Breast Cancer Risk 1.80% Lifetime Breast Cancer Risk 3.60% Personal Breast Cancer No Personal Ovarian Cancer No Treatments None Family Cancers Brother with prostate cancer at age 73. LOCATION: [facility] BREAST COMPOSITION: The breasts are heterogeneously dense,which may obscure small masses. FINDINGS: DIAGNOSTIC CATEGORY 2--BENIGN FINDING. NO CHANGE FROM COMPARISON. The left breast is stable in size and overall fibroglandular configuration. The previous identified density is no longer observed. Ultrasound demonstrates a stable 1.6 x 0.3 x 0.7 cm oval area of well-circumscribed hypoechogenicity wider than tall the 3 o'clock position of the left breast, nonspecific. In light of the stability. Benign process is favored. The patient was asked to return to yearly screening mammography RECOMMENDATIONS: ROUTINE MAMMOGRAM AND CLINICAL EVALUATION November of 2024. PLEASE NOTE: A NORMAL MAMMOGRAM DOES NOT EXCLUDE THE POSSIBILITY OF BREAST CANCER. A CLINICALLY SUSPICIOUS PALPABLE LUMP SHOULD BE BIOPSIED. Dictated by: James Davis MD on 06/06/2024 at 13:56 Approved by: James Davis MD on 06/06/2024 at 14:03
--- OUTSIDE RECORDS SUMMARY | 2024-06-06 13:11 | XMS_ITS | CCD ---
Author Organization [facility] Inform ion Partnership [facility] Care Team Providers Care Geologist [employer] Name Role Phone Park Carias Unavailable Unavailable Primary Care Provider UnavailGRACIE Rodriguez Attending Unavailable JOHN QUIROZ Attending Unavailable Arden Martinez DO Primary Care Provider Kenyon Boogie Unavailable [phone] ARDEN MARTINEZ Primary Care Unavailab ALLISON Bocanegra Attending Unava ilable Arden Martinez DO Primary Care Provider [phone] Allergies Allergy Classification Reported Allergen(s) Allergy Type Date of Onset Reaction(s) Facility (3 sources) Naproxen Drug Allergy 01-16-2012 [employer] Other (3 sources) Naproxen; Translations: [NAPROXEN SODIUM] Drug Allergy 01-16-2012 [facility] Medications Current Medications Medication Drug Class(es) Dates Sig (Normalized) Sig (Original) amoxicillin 875 mg / clavulanate 125 mg oral tablet (1 source) Penicillin-class Antibacterial Start: 05-09-2023 take 1 tablet by mouth every twelve hours Amoxicillin-Pot Clavulanate 875-125 MG 1 tablet Orally every 12 hrs for 10 day(s) May, Active bimatoprost 0.1 mg/ml ophthalmic solution (5 sources) Prostaglandin Analog Start: 08-01-2011 Bimatoprost (LUMIGAN) 0.01 % OPHTHALMIC Drop 1 Drop. 0 08/01/2011 Active bimatoprost (LUM IGAN) 0.01 % ophthalmic drops 1 (one) time each day at the same time Active take 1 drop(s) into the eye(s) once daily in the evening Lumigan 0.01 % 1 drop into affected eye in the evening Ophthalmic Once a day Active cetirizine hydrochloride 10 mg oral tablet (3 sources) Histamine-1 Receptor Antagonist cetirizine (ZyrTEC) 10 mg tablet daily. Active cetirizine (ZYRT EC) 10 mg tablet q 24 HR. Active ZyrTEC Allergy N ot-Taking fexofenadine hydrochloride 180 mg oral tablet (1 source) Histamine-1 Receptor Antagonist take 1 tablet by mouth once daily fexofenadine (ANGEL ALLERGY) 180 mg tablet Take 180 mg by mouth once daily. Active fluorouracil 50 mg/ml topical cream (1 source) Nucleoside Metabolic Inhibitor Start : 10-21 fluorouraciL (EFUDEX) 5 % cream Apply to directed areas on the nose, cheeks, and forehead twice a day x 14 days. Dispense 30 day supply but only use for 14 days. 10/22/2023 Active fluticasone propionate 0.05 mg/actuat metered dose nasal spray (1 source) Corticosteroid Start : 05-09 take 2 spray(s) nasal route once daily Fluticasone Propionate 50 MCG/ACT 2 sprays Nasally Once a day for 14 day(s) May, Active lovastatin 10 mg oral tablet (1 source) HMG-CoA Reductase Inhibitor Start : 12-26 take 1 tablet by mouth once daily lovastatin (MEVACOR) 10 mg tablet Indications: Pure hypercholesterolemia Take 1 tablet (10 mg total) by mouth nightly. 90 tablet 2 12/27/2023 Active methylPREDNISolone 4 mg oral tablet (1 source) Corticosteroid Start : 05-09 Medrol 4 MG as directed Orally As Directed for 6 days May, Active pantoprazole 40 mg delayed release oral tablet (2 sources) Proton Pump Inhibitor take 1 tablet by mouth once daily pantoprazole DR (PROTONIX) 40 mg tablet pantoprazole 40 mg tablet,delayed release Take 1 tablet every day by oral route. Active Pantoprazole Sod ium Not-Taking 12 hr timolol 5 mg/ml ophthalmic solution (5 sources) beta-Adrenergic Mary timolol (TIMOPTIC) 0.5 % ophthalmic solution timolol maleate 0.5 % eye drops Active take 1 drop(s) into the eye(s) once daily Timolol Maleate 0.25 % 1 drop into affec ameya eye Ophthalmic Once a day Active vit A-vit C-vit E-cofp-hrjlh r (EYE VITAMIN AND MINERALS) 7,160-113-100 hohr-cz-vird tab (1 source) vit A-vit C-vit V-spvd-gawrow (EYE VITAMIN AND MINERALS) 7,160-113-100 zxtt-xt-sgia tab Eye Vitamin and Minerals Active Completed/Discontinued Medications Medication Drug Class(es) Dates Sig (Normalized) Sig (Original) Triamcinolone (1 source) Corticosteroid Triamcinolone Ac etonide Not-Taking Problems Active Problems Problem Classification Problem Date Documented Da te Episodic/Chronic Digestive congenital anomalies (1 source) Congenital cystic disease of liver; 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] 02-11-2024 Chronic Disorders of lipid metabolism (2 sources) Hyperlipidemia; Translations: [Hyperlipidemia, unspecified] Onset: 12-27-2023 11-18-2019 Chronic Glaucoma (2 sources) Glaucoma; Translations: [Unspecified glaucoma] Onset: 12-27-2023 11-18-2019 Chronic Other and unspecified benign neoplasm (1 source) Hemangioma; Translations: [Hemangioma of unspecified site] Episodic Other and unspecified benign neoplasm (2 sources) Melanocytic nevus of trunk; Translations: [Melanocytic nevi of trunk] 07-13-2023 Episodic Other gastrointestinal disorders (1 source) Ascites; Translations: [Other ascites] Episodic Other liver diseases (3 sources) Liver cyst; Translations: [Other specified diseases of liver] Onset: 09-08-2019 12-08-2019 Chronic Other lower respiratory disease (1 source) Cough; Translations: [Cough] Episodic Other screening for suspected conditions (not mental disorders or infectious disease) (1 source) Computed tomography result abnormal; Translations: [Abnormal CT scan] Chronic Other screening for suspected conditions (not mental disorders or infectious disease) (3 sources) Patient encounter status; Translations: [Encounter for screening for malignant neoplasm of skin] Onset: 12-30-2009 12-30-2009 Episodic Other upper respiratory infections (1 source) Acute sinusitis, unspecified Episodic Past or Other Problems Problem Classification Problem Date Documented Da te Episodic/Chronic Allergic reactions (3 sources) Acute phototoxic dermatitis; Translations: [Other specified acute skin changes due to ultraviolet radiation] Onset: 05-11-2009 05-11-2009 Episodic Mood disorders (1 source) Mood disorders Onset: 12-27-2023 12-27-2023 Neoplasms of unspecified nature or uncertain behavior (2 sources) Neoplasm of uncertain behavior of skin; Translations: [Neoplasm of uncertain behavior of skin] Onset: 08-01-2011 08-01-2011 Episodic Other and unspecified benign neoplasm (2 sources) Hemangioma of skin; Translations: [Hemangioma of skin and subcutaneous tissue] Onset: 07-23-2012 07-23-2012 Episodic Other lower respiratory disease (2 sources) Chronic cough; Translations: [Chronic cough] Onset: 12-27-2023 11-18-2019 Episodic Other non-epithelial cancer of skin (3 sources) Malignant neoplasm of skin of face; Translations: [Other and unspecified malignant neoplasm of skin of other and unspecified parts of face] Onset: 03-17-2008 03-17-2008 Episodic Other skin disorders (5 sources) Seborrheic keratosis; Translations: [Other seborrheic keratosis] Onset: 02-11-2008 07-13-2023 Episodic Other skin disorders (4 sources) Actinic keratosis; Translations: [Actinic keratosis] Onset: 02-11-2008 07-13-2023 Episodic Other skin disorders (4 sources) Inflamed seborrheic keratosis; Translations: [Inflamed seborrheic keratosis] Onset: 11-03-2008 07-13-2023 Episodic Other skin disorders (2 sources) Disorder of pigmentation; Translations: [Disorder of pigmentation, unspecified] Onset: 01-22-2009 01-22-2009 Episodic Other skin disorders (2 sources) Acne; Translations: [Acne, unspecified] Onset: 12-30-2009 12-30-2009 Episodic Viral infection (2 sources) Verruca vulgaris; Translations: [Viral wart, unspecified] Onset: 12-30-2009 12-30-2009 Episodic Results Test Name Value Interpretation Reference Range Facility [facility] 02-11-2024 CNOV Office Visit ([facility] ) BETINA MORELOS ([id number]) 1950 F Date Time Provider Department 02/11/24 11:00 AM ALLISON ORO [facility] During your visit today, we recorded the [...] with more than 50% of the total fgwd-rp-fxbe time of the visit in counseling / [...] Simple biliary-type cyst with associated fibrosis. . [facility] 11/26/2019 Shawn Hutchinson M.D., Ph.D. (Electronic Signature) [...] DATE: February 11, 2024 TIME: 11:43 AM AimeeRaissa martinezARMIN 02/11/2024 11:10 AM Signed What is the reason for your visit today? liver cyst Who is your referring physician? DO Furlong Are you having poor oral intake? NO Have you had unintentional weight loss of 15 lbs/7 Kg in the last 3-6 months? 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 Normal [facility] No Panel Informationon 07-13 [facility] ALLIED HEALTHon 11-21-2019 ALLIED HEALTH HNO ID: [id number] Author: Ema Ferrer (Chaplain) Service: Healing Service Author Type: Car Repairer Type: Allied Health Filed: 11/21/2019 7:57 AM Note Text: SPIRITUAL CARE Spiritual Care Visit Record Name: Betina Morelos Date: November 21, 2019 Type of Visit: Preoperative Prayer/Visit Visit was with (pt, dtr). Ministry Provided During Visit: Spiritual Presence / Support Notes: I introduced self. Pt is Nondenominational. I gave her a blessing. Pt thanked for visit. Referrals: No referral made Will See: As Needed Only Follow-up Notes: Informed patient and family of Car Repairer availability Car Repairer Signature: Chaplain Rg Student To contact the Spiritual Care Department: Please call [phone] or Page the On-Call Car Repairer at pager [phone] Thank you for the opportunity to be of service. This is an electronically created document. IF PRINTED, PLEASE DO NOT REMOVE FROM THE CHART OR MODIFY PRINTED COPY. [facility] ANES Nerissa 11-21-2019 ANES POST HNO ID: [id number] Author: Aimee Quintero I Service: Anesthesiology Author [...] DATE: November 21, 2019 TIME: 12:19 PM [facility] ANES PREOPon 11-21-2019 ANES PREOP HNO ID: [id number] Author: Aimee Quintero I Service: Anesthesiology Author [...] Encounter Medication Sig - vit A-vit C-vit E-mqoi-tjicbj (EYE VITAMIN AND MINERALS) 7,160-113-100 ytrd-lv-cpbv tab Eye Vitamin and Minerals - timolol [...] November 21, 2019 TIME: 7:02 AM Normal [facility] CYTOLOGYon 11-21-2019 CYTOLOGY Specimen originated from [facility] Specimen #: [id number] Submitting Physician: ALLISON ORO SPECIMEN SUBMITTED A: [...] CYST FLUID, FINE NEEDLE ASPIRATE THIN PREP Non-Supervisor Area B: ABDOMINAL FLUID (THINPREP AND CELL BLOCK) THIN PREP Non-Supervisor Area, CELL BLOCK, H&E, Initial Date of Report: 11/21/2019 Date of Procedure: 11/21/2019 Date of Receipt: 11/21/2019 Submitted by: ALLISON ORO Location: [facility] Diagnostic interpretation performed at [facility], [address] [place] [address], [place] [id number]. CLIA Number: [id number] Normal [facility] HISTORY PHYSICALon 0 HISTORY PHYSICAL HNO ID: [id number] Author: Allison Oro Service: General Surgery Author [...] DATE: November 21, 2019 TIME: 7:13 AM PAGER:[phone] [facility] NURSING PROGon 11-21-2019 NURSING PROG HNO ID: [id number] Author: Yomaira DuranRn) KAILYN Montano Service: ? [...] patient. This note was completed by: Yomaira Monatno RN [facility] NURSING PROG HNO ID: [id number] Author: Zarina DuranRnArgenis Brownlee RN Service: ? Author Type: Registered Nurse Type: [...] note was completed by: Hernan Brownlee RN Normal [facility] OPERATIVE NOon 11-21-2019 OPERATIVE NO HNO ID: [id number] Author: Allison Oro Service: General Surgery Author Type: Physician Type: Operative Report Filed: 11/24/2019 10:33 AM Note Text: [facility] - Operative Report BETINA MORELOS : 1950 AGE: 69. SEX: F PATIENT TYPE: I HOSP SVC: GEN LOCATION: [facility] ATTENDING PHYSICIAN: Allison Oro MD CSN NUMBER: [id number] DATE OF SURGERY/PROCEDURE: 11/21/2019 INCISION/PROCEDURE START TIME: 7:55 am INCISION CLOSE/PROCEDURE END TIME: 8:59 am PREOPERATIVE DIAGNOSIS: Symptomatic right lobe liver cyst. POSTOPERATIVE DIAGNOSIS: Symptomatic right lobe liver cyst. SURGEON: Allison Oro MD LOCUM TENENS: No Additional Staff SURGERY/PROCEDURE: Laparoscopy and cyst [...] portions of the operation. Allison Oro MD CTS:[id number] /[id number] cc: [facility] PROGRESSon 11-21-2019 PROGRESS HNO ID: [id number] Author: Allison Oro Service: General Surgery Author Type: Physician Type: Progress Notes Filed: 11/21/2019 7:35 AM Note Text: labs from Jul 2019 Na 140 K 4.5 manager documentation 0.76 Alt 7 Ast 15 T Bili 1.2 WBC 5.3 Hgb 13.7 Hct 43.3 Plt 205 [facility] PT EDon 11-21-2019 PT ED HNO ID: [id number] Author: Yomaira (Rn) KAILYN Montano Service: ? [...] None Electronically Signed By: Yomaira Montano RN [facility] SURGICAL PATHOLOGYon 020 SURGICAL PATHOLOGY Specimen originated from [facility] Specimen #: [id number] Submitting Physician: ALLISON ORO FINAL DIAGNOSIS Liver cyst wall, excision (A) - Simple biliary-type cyst with associated fibrosis. . [facility] 11/26/2019 Shawn Hutchinson M.D., Ph.D. (Electronic Signature) [...] thickness. No excrescences or papillations are identified. Food Preparation Worker sections are submitted in seven cassettes. [place]/[facility] 11/21/2019 Gross examination performed at [facility], [address] [place] [address] Date of Report: 11/27/2019 Date of Procedure: 11/21/2019 Date of Receipt: 11/21/2019 Submitted by: ALLISON ORO Location: [place] Diagnostic interpretation performed at [place] [address]. [place] Number: [id number] Normal [facility] Wound Culture/Stainon 2019 Wound Culture/Stain Sp. Request/Comment: - Eswab Smear Result - No organisms seen No Polymorphonuclear Leukocytes Culture Result - No growth 3 days [facility] Comment on above: Performed By: #### W CUL ####[address] [phone] Wound Culture/Stain Sp. Request/Comment: - Eswab Smear Result - No organisms seen No Polymorphonuclear Leukocytes Culture Result - No growth 3 days [facility] Comment on above: Performed By: #### W CUL ####[address] [phone] Confirm Blood Typeon 020 ABO/RH(D) Positive [facility] [id number] 11-18-2019 ECG01 NAME : RUPAL MORELOS PID : [id number] : 1950 Gender : Female Race : ORD : [id number] Procedure Date : Nov 18 2019 13:19:19 [...] ms QTC Calculation(Bazett) : 412 ms P Radcliffe : -2 degrees R Radcliffe : 51 degrees T Radcliffe : -1 degrees Test Reason : Location : 49 : [place] Overread By : DARON NAVARRO M.D. Edited By : DARON NAVARRO M.D. Referred By : BARBIE BURTON Acquired by : AMIRA WALLACE [facility] HOSPon 09-18-2019 HOSP Patient:Pola Morelos M MRN: Height:5' 6.5 [patient reported[(1.689 m) Weight:152 lb (68.947 kg) Outpatient Medications as of 11/21/19: vit A-vit C-vit S-hgrt-xcahcx (EYE VITAMIN AND MINERALS) 7,160-113-100 gmfx-sy-acsp tab timolol maleate (TIMOPTIC) 0.5 % ophthalmic [...] notes entered within the past 30 days Normal [facility] Reminderson 04-15-2019 Reminders - From: Aurora Medina CMA To: [facility] - Reminders/Recalls; Sent: 12/04/2018 12:26:41 EDT Show up: 03/04/2019 12:26:00 EDT Subject: 2018 RECALL Due Date/Time: 04/20/2019 12:26:00 EST Reminder/Recall Colonoscopy recall [address] Azevedo Due 04/20/19 First Recall Letter Sent Clp Second Recall Letter [facility] Vital Signs Date Time Vital Sign Value Performing Clinician Facility 02-11-2024 11:090400 Body height 168.9 cm Allison Oro MD Work Phone: [facility] 02-11-2024 11:09-0400 Body mass index (BMI) [Ratio] 23.08 kg/m2 Allison Oro MD Work Phone: [facility] 02-11-2024 11:09-0400 Body temperature 96.91 [degF] Allison Oro MD Work Phone: [facility] 02-11-2024 11:09-0400 Body weight 65.86 kg Allison Oro MD Work Phone: [facility] 02-11-2024 11:09-0400 Diastolic blood pressure 68 mm[Hg] Allison Oro MD Work Phone: [facility] 02-11-2024 11:09-0400 Heart rate 83 /min Allison Oro MD Work Phone: [facility] 02-11-2024 11:09-0400 Systolic blood pressure 130 mm[Hg] Allison Oro MD Work Phone: [facility] 05-09-2023 12:40-0500 Body height 165.1 cm Park Carias Other [employer] Other 05-09-2023 12:40-0500 Body mass index (BMI) [Ratio] 22.46 kg/m2 Park Bahenamond Other [employer] Other 05-09-2023 12:40-0500 Body temperature 98 [degF] Park Bahenamond Other [employer] Other 05-09-2023 12:40-0500 Body weight 61.24 kg Park Bahenamond Other [employer] Other 05-09-2023 12:40-0500 Diastolic blood pressure 65 mm[Hg] Park Bahenamond Other [employer] Other 05-09-2023 12:40-0500 Respiratory rate 18 /min Park Bahenamond Other [employer] Other 05-09-2023 12:40-0500 SaO2% (BldA) [Mass fraction] 98 % Park Bahenamond Other [employer] Other 05-09-2023 12:40-0500 Systolic blood pressure 133 mm[Hg] Park Aretha Other [employer] Other Encounters Encounter Date Encounter Type Care Provider Facility Start: 06-06-2024 End: 06-06-2024 Orders Only Arden Erika Martinez DO Work Phone: [facility] Comment on above: Abnormal mammogram ( Primary Dx) Start: 02-11-2024 End: 02-11-2024 ambulatory ARDEN MARTINEZ Facility:[facility] Start: 02-11-2024 End: 02-11-2024 Patient encounter procedure Allison Oro MD Work Phone: General Surgery Comment on above: Congenital cystic di sease of liver [Q44.6] (Primary Dx) Start: 10-18-2023 End: 10-18-2023 ambulatory JOHN QUIROZ Not Available Start: 07-13-2023 Bamboo flowsheet Gracie stern PA Work Phone: [facility] Start: 07-13-2023 Bamboo flowsheet Gracie stern PA Work Phone: [facility] Start: 07-13-2023 End: 07-13-2023 ambulatory GRACIE LUNA Not Available Start: 07-13-2023 End: 07-13-2023 Office outpatient visit 15 minutes Gracie LARIOS Work Phone: [facility] Comment on above: Melanocytic nevus of trunk (Primary Dx); Seborrheic keratosis; Actinic keratosis; Inflamed seborrheic keratosis Start: 05-09-2023 End: 05-09-2023 ambulatory Park Carias Other [employer] Other Start: 05-09-2023 Office outpatient ne w 20 minutes Park Carias [facility] Procedures Date Procedure Procedure Detail Performing Clinician Start: 12-27-2023 Adult depression scr eening assessment Ardengrace Mazariegoselias DO Work Phone: Start: 07-13-2023 End: 07-13-2023 CRYOTHERAPY SKIN LESION Gracie LARIOS Work Phone: Start: 11-18-2019 Antibody screen Plan of Treatment Date Care Activity Detail Author Start: 02-15-2026 DTaP,Tdap and Td Vaccines (2 - Td or Tdap) DTaP,Tdap and Td Vaccines (2 - Td or Tdap) [employer] Start: 02-15-2026 Urine microalbumin profile DTaP,Tdap,Td Vaccine (2 - Td or Tdap) [facility] Start: 12-26-2024 Depression Screening Depression Scre ening [facility] Start: 12-26-2024 Fall Risk Screening Fall Risk Screen ing [facility] Start: 12-26-2024 Tobacco Screening Tobacco Screening [facility] Start: 07-14-2024 End: 07-14-2024 Patient encounter procedure 07/14/2024 10:50 AM EST Office Visit [facility] [address] [place] [address] Gracie Luna PA [address] [place], [place] [id number] [facility] Start: 06-06-2024 End: 06-06-2025 MG Breast duct - left Views W contrast intra duct Mammography diagnostic unilateral left with CAD Imaging Routine Abnormal mammogram Expected: 06/06/2024, Expires: 06/06/2025 [employer] Work Phone: Comment on above: Expected: 06/06/2024 , Expires: 06/06/2025 Start: 06-06-2024 End: 06-06-2025 US Breast - left limited Ultrasound breast limited left Imaging Routine Abnormal mammogram Expected: 06/06/2024, Expires: 06/06/2025 [facility] Comment on above: Expected: 06/06/2024 , Expires: 06/06/2025 Start: 02-03-2024 Covid-19 Vaccine ( season) Covid-19 Vaccine ( season) [facility] Start: 02-03-2024 Influenza vaccination [facility] Start: 07-13-2023 End: 07-13-2023 Patient encounter procedure 07/13/2023 11:50 AM EST Office Visit [facility] [address] [place] [address] Gracie Luna PA [address] [place] [address] Arrived [facility] Comment on above: Arrived Start: 06-04-2023 Advance Directive Discussion Advance Directive Discussion [facility] Start: 02-02-2023 Influenza vaccination Influenza Vacc ine (#1) [facility] Start: 09-22-2020 COVID-19 Vaccine (3 - Moderna risk series) COVID-19 Vaccine (3 - Moderna risk series) [facility] Start: 2013 Pneumococcal Vaccine : 65+ (1 of 1 - PCV) Pneumococcal Vaccine: 65+ (1 of 1 - PCV) [facility] Start: 2013 Pneumococcal Vaccine : 65+ Years (1 - PCV) Pneumococcal Vaccine: 65+ Years (1 - PCV) [facility] Start: 2008 RSV Vaccine (1 - 1-d ose 60+ series) RSV Vaccine (1 - 1-dose 60+ series) [facility] Start: 1993 Diabetes Screening Diabetes Screenin g [facility] Start: 1993 Lipid panel Lipid Screening [facility] Start: 1993 Screening for malign ant neoplasm of colon [facility] Start: 1966 Anxiety Screening Anxiety Screening [facility] Start: 1966 Depression Screening Depression Scre [facility] Start: 1966 Hepatitis C screening Hepatitis C Sc [facility] Start: 1950 Medicare Annual Wellness Visit Medicare Annual Wellness Visit [facility] Start: 1950 Screening for malign ant neoplasm of colon [facility] Immunizations Immunization Date Immunization Notes Care Provider Matthias ellis 08-08-2019 zoster vaccine recombinant Arden Furlong DO Work Phone: [facility] 05-09-2019 zoster vaccine recombinant Arden Furlong DO Work Phone: [facility] 02-16-2016 tetanus toxoid, redu giorgio diphtheria toxoid, and acellular pertussis vaccine, adsorbed Arden Furlong DO Work Phone: [facility] Payers Date Payer Category Payer Commercial Managed C are - POS [employer] [id number] 2020 Private Health Insurance [id number] 2020 Unknown [id number] 2018 Unknown [id number] 2013 Medicare [id number] 2013 Medicare [id number] 1950 Unknown [id number] 1950 Unknown [id number] Social History Date Type Detail Facility Unknown if ever smoked [employer] Other Start: 07-13-2023 End: 12-27-2023 Sex Assigned At [employer] [facility] Start: 1950 Sex Assigned At Female [facility] Start: 07-12-2023 Gender identity Identifies as female gender (finding) [facility] Start: 07-13-2023 End: 12-27-2023 Tobacco smoking status NYIS Never smoked tobacco [facility] Start: 07-13-2023 End: 12-27-2023 Tobacco use and exposure Smokeless tobacco non-user [facility] Start: 07-13-2023 End: 12-27-2023 History of Social function [facility] Start: 02-11-2024 Alcoholic beverage intake Current drinker of alcohol (finding) [facility] How often to you hav e a drink containing alcohol? Monthly or less [facility] Average Number of Drinks Not on file [facility] Start: 11-17-2019 Alcohol Comment less than 1 drink per week [facility] Start: 1950 Sex assigned at Not on file [facility] Start: 03-27-2024 Alcoholic beverage intake Not Asked [facility] Has the Travel Appeal, or PlaceBlogger threatened to shut off services in your home in past 12Mo No [facility] Do you belong to any clubs or organizations such as bahai groups, unions, fraternal or athletic groups, or school groups? Yes [facility] Are you now , , , , never or living with a partner? [facility] How often to you hav e a drink containing alcohol? 2-4 times a month [facility] How many standard dr inks containing alcohol do you have on a typical day? 1 or 2 [facility] How often do you hav e 6 or more drinks on 1 occasion? Never [facility] [facility] Do you feel stress - tense, restless, nervous, or anxious, or unable to sleep at night because your mind is troubled all the time - these days [OSQ] Not at all [facility] Start: 12-27-2023 Alcohol Comment social [facility] Start: 11-21-2023 Sex Female (finding) [facility] Clinical Notes 05-09-2023 to 02-11-2024 Raissa Shook LPN - 02/11/2024 11:07 AM Raissa Baugh LPN - 02/11/2024 11:07 AM Allison Locke MD - 02/11/2024 11:00 AM HARRIET Lopez - 07/13/2023 11:50 AM EST Note Date & Type Note Facility 02-11-2024 Nurse Note What is the reason for your visit today? liver cyst Who is your referring physician? DO [place] Are you having poor oral intake? NO Have you had unintentional weight loss of 15 lbs/7 Kg in the last 3-6 months? NO Bowels: regular patient declined community product specialist Raissa Shook LPN [facility] 02-11-2024 Nurse Note What is the reason for your visit today? liver cyst Who is your referring physician? DO Juan Are you having poor oral intake? NO Have you had unintentional weight loss of 15 lbs/7 Kg in the last 3-6 months? NO Bowels: regular patient declined community product specialist Raissa Shook LPN documented in this encounter [facility] 02-11-2024 History of Present illness Narrative HISTORY AND PHYSICAL EXAMINATION SERVICE [...] with more than 50% of the total whos-bo-mfvy time of the visit in counseling / [...] Simple biliary-type cyst with associated fibrosis. . [facility] [place] 11/26/2019 Shawn Hutchinson M.D., Ph.D. (Electronic Signature) [...] TIME: 11:43 AM documented in this encounter [facility] 02-11-2024 Note HNO ID: [id number] Author: ALLISON ORO MD Service: ? Author [...] with more than 50% of the total zhor-zv-[id number] time of the visit in counseling / [...] Simple biliary-type cyst with associated fibrosis. . [facility] [place] 11/26/2019 Shawn Hutchinson M.D., Ph.D. (Electronic Signature) [...] DATE: February 11, 2024 TIME: 11:43 AM [facility] 07-13-2023 History of Present illness Narrative Skin Check Location: Patient requests [...] Examined Right arm Examined Patient wearing nail australian, Denies dark streaks on toenails Left arm [...] limited to risks of scarring, darker or bottle sorter pigmentary changes, recurrence, incomplete removal and infection. [...] limited to risks of scarring, darker or bottle sorter pigmentary changes, recurrence, incomplete removal and infection. [...] Visit: 1 year documented in this encounter [facility] 05-09-2023 Evaluation note Encounter Date Diagnosis Assessment [...] no improvement in 2 to 3 days [employer] Other Evaluation note* Diagnosis Melanocytic nevus of trunk- Primary Benign neoplasm of skin of trunk, except scrotum Seborrheic keratosis Actinic keratosis Inflamed seborrheic keratosis [facility] Preoperative examination- Primary Preoperative examination, unspecified Liver cyst Other specified disorders of liver Chronic cough Cough Hyperlipidemia, unspecified hyperlipidemia type Glaucoma, unspecified glaucoma type, unspecified laterality 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 [facility] Abnormal mammogram- Primary Abnormal mammogram, unspecified [facility] Narrative - Reported* Type Description Date Medical History HYPERLIPIDEMIA Medical History MRI abdomen Surgical History SINUS SX 1999 [employer] Other InstructionsNot on filedocumented in this encounter [employer] Summary Purpose Family History No Family History Records FoundNo Family History Records FoundNo Family History Records FoundNo Family History Records Found Advance Directives No Advanced Directives Records FoundNo Advanced Directives Records FoundNo Advanced Directives Records FoundNo Advanced Directives Records Found Procedure Findings Note HNO ID: [id number] Author: Eleazar Martin Service: General Surgery Author Type: Resident Type: Brief Op Note Filed: 11/21/2019 9:09 AM Note Text: GENERAL SURGERY BRIEF OPERATIVE NOTE Betina Morelos [id number] LOG ID: [id number] Surgery/Procedure Date: 11/21/2019 Incision/Procedure Start Time: 7:55 AM Incision Close/Procedure End Time: 8:59 AM Surgeon(s)/Proceduralist(s) and Anode Worker(s): Surgeon(s) and Role: * Allison Oro - [...] and content) DATE CREATED AUTHOR 04/15/2019 Anam De La Torre [facility] DATE CREATED AUTHOR AUTHOR'S ORGANIZ ATION 12/24/2019 [facility] DATE CREATED AUTHOR AUTHOR'S ORGANIZ ATION 10/20/2023 [facility] DATE CREATED AUTHOR AUTHOR'S ORGANIZ ATION 02/12/2024 [facility] REASON FOR VISIT (unrecogniz ed section and content) Reason Comments Skin Check Reason Comments New Patient Source Comments (unrecognize d section and content) In the event this informatio n is protected by the Federal Confidentiality of Alcohol and Drug Abuse Patient Records regulations: The Federal rules restrict any use of the information to criminally investigate or prosecute any alcohol or drug abuse patient.[facility] Care Teams (unrecognized sec tion and content) [employer] Relationship Specialty Start Date End Date Arden Martinez DO [address] [place] [id number] PCP - General 12/23/07 Kenyon Tamayo [address] [address] Referring Gastroenterology 09/04/19 [employer] Relationship Specialty Start Date End Date Arden Martinez DO [address] [place] [address] PCP - General Family Medicine 11/21/23 FOR RECORDS PERTAINING TO PATIENTS WHO ARE [...] BE BASED ON THE PRIMARY CLINICAL RECORDS. [facility] [employer] [facility]. provides no warranty or guarantee of the accuracy or completeness of information in this document.
== END 2024-06-06 12:52 | disposition home or self-care (01) ==
LOC: MAMMO 12:51
PROVIDERS: PCP Family Medicine; Visit Provider Family Medicine
DX: R92.8 Other abnormal and inconclusive findings on diagnostic imaging of breast (principal); Z80.42 Family history of malignant neoplasm of prostate
CPT/HCPCS: 76642; 77065; G0279

== ENCOUNTER 2024-06-17 10:28 | Outpatient (OUT) | payer MEDICARE, OTHER, SELFPAY ==
--- NOTE | 2024-06-16 13:43 | VEINCLINIC_ITS ---
Vital Signs 06/17/24 11:17 BP 112/62 BP Location Left Brachial BP Position Sitting BP Cuff Size Adult BP Source Manual Cuff Respiration 16 Pulse 73 Pulse Source Monitor Pulse Oximetry (%) 98 Oxygen Delivery Method Room Air Varicose Veins Patient in today for sclerotherapy Roel Castillo MD personally performed the services described in this documentation, as scribed by Vernon Garland RN in my presence and it is both accurate and complete. Vernon Castillo RN, am scribing for, and in the presence of, Dr. Roel Montez and in the presence of the patient. thigh: bilateral (symptoms equally bilateral), knee: bilateral, calf: bilateral, ankle: bilateral and ross: bilateral aching, cramping, dull and tender 2 20 years Worsened in recent months: Yes standing analgesics, elevating extremities, compression stockings and exercise Reports muscle spasms of leg, heaviness, limb pain, edema and leg edema History of lower extremity trauma: No Superficial thrombophlebitis: No Family history of varicose veins: yes Has patient had previous lower extremity venous surgery: No Patient has previously received the following treatment(s) for lower extremity varicose veins: Reports none Does patient have a history of : yes Does patient intend to have future pregnancies: no Has patient had lower extremity venous scan with relux testing: No Support hose used: Yes Problems walking or doing physical activity: Yes How does it affect you: often has to stop and rest and elevate legs/feet Do you walk much: Yes Do you stand much: Yes Review of Systems ROS Narrative Roel Castillo MD personally performed the services described in this documentation, as scribed by Vernon Garland RN in my presence and it is both accurate and complete. Vernon Castillo RN, am scribing for, and in the presence of, Dr. Roel Montez and in the presence of the patient. Status of ROS 10 or more systems reviewed and unremark able except as noted in history and below Cardiovascular Reports: edema Integumentary/Breast Reports: skin tenderness, skin swelling and changes in skin color Neurological Reports: numbness in extremities and weakness in extremities [facility] Medical History (Updated 04/16/24 @ 13:45 by Emilia Greer) Phlebitis and thrombophlebitis of superficial vessels of left lower extremity ?I80.02 - Phlebitis and thrombophlebitis of superficial vessels of left lower extremity (ICD-10) Phlebitis and thrombophlebitis of superficial vessels of right lower extremity ?I80.01 - Phlebitis and thrombophlebitis of superficial vessels of right lower extremity (ICD-10) Foreign object left in body during procedure ?T81.509A - Unspecified complication of foreign body accidentally left in body following unspecified procedure, initial encounter (ICD-10) Cataract ?H26.9 - Unspecified cataract (ICD-10) Glaucoma ?H40.9 - Unspecified glaucoma (ICD-10) Peripheral neuropathy ?G62.9 - Polyneuropathy, unspecified (ICD-10) Pain due to varicose veins of both lower extremities ?I83.813 - Varicose veins of bilateral lower extremities with pain (ICD-10) Surgical History (Updated 06/17/24 @ 11:18 by Vernon Garland) S/P sclerotherapy of varicose veins ?Z98.890 - Other specified postprocedural states (ICD-10) ?Z86.79 - Personal history of other diseases of the circulatory system (ICD- 10) S/P sclerotherapy of varicose veins ?Z98.890 - Other specified postprocedural states (ICD-10) ?Z86.79 - Personal history of other diseases of the circulatory system (ICD- 10) S/P sclerotherapy of varicose veins ?Z98.890 - Other specified postprocedural states (ICD-10) ?Z86.79 - Personal history of other diseases of the circulatory system (ICD- 10) S/P sclerotherapy of varicose veins ?Z98.890 - Other specified postprocedural states (ICD-10) ?Z86.79 - Personal history of other diseases of the circulatory system (ICD- 10) Status post laser ablation of incompetent vein ?Z98.890 - Other specified postprocedural states (ICD-10) Status post laser ablation of incompetent vein ?Z98.890 - Other specified postprocedural states (ICD-10) Social History (Updated 03/14/24 @ 08:42 by Vernon Garland) Within the past year, how often did you have a drink containing alcohol: monthly or less Smoking status: Never smoker Non-prescribed substance use: denies use Meds Home Medications and Allergies Allergies Allergy/AdvReac Type Severity Reaction Status Date / Time naproxen (From Aleve) Allergy Intermediate Hives Verified 03/14/24 08:43 Exam Narrative Exam Narrative: Roel Castillo MD personally performed the services described in this documentation, as scribed by Vernon Garland RN in my presence and it is both accurate and complete. Vernon Castillo RN, am scribing for, and in the presence of, Dr. Roel Montez and in the presence of the patient. Constitutional Documenting provider has reviewed patient's vital signs: yes Common normals: oriented x3 Cardio Peripheral pulses: posterior tibial pulses present and dorsalis pedis pulses present Extremity Common normals: normal capillary refill General: edema Right lower extremity: lower leg Right lower leg: inspection and palpation Left lower extremity: lower leg Left lower leg: inspection and palpation Neuro Common normals: oriented x3 Assessment and Plan Assessment and Plan (1) Pain due to varicose veins of both lower extremities: Plan Additional sclerotherapy Roel Castillo MD personally performed the services described in this documentation, as scribed by Vernon Garland RN in my presence and it is both accurate and complete. Vernon Castillo RN, am scribing for, and in the presence of, Dr. Roel Montez and in the presence of the patient. Procedures Procedure Instructions Procedures sclerotherapy: Risks and benefits of the procedure were discussed at length and informed written consent was obtained.? Time-out procedure was performed and the correct patient and procedure were confirmed.? Staff present during time-out: Vernon Garland RN and Roel Montez MD.? Patient prepped and procedure performed in usual sterile fashion. Injections performed by Dr. Montez and Vernon Garland RN Sclerosing Agent:?? 4cc 0.5% Polidocanol Site Injected: left leg Number of Injections: 23 Anesthesia: Supercooled air The patient tolerated the procedure well without complication.? Hemostasis was obtained and thigh-high compression stocking was applied by patient.? Instructed patient to wear stocking for at least 96 hours and sleep with it and only remove for showering.? Will wear stocking for 2 weeks.? The patient verbalizes understanding and states they will comply.? Patient was given post-procedure instructions. Patient was discharged in good condition.? Scheduled to undergo additional injection sclerotherapy on 06/26/2024. IRoel MD personally performed the services described in this documentation, as scribed by Vernon Garland RN in my presence and it is both accurate and complete. I, Vernon Garland RN, am scribing for, and in the presence of, Dr. Roel Montez and in the presence of the patient.
--- NOTE | 2024-06-16 13:51 | W.VEIN ---
Discharge Plan Discharge Disposition: Home, Self-Care Outpatient Diagnostics: VC INJ Sclerosing SOLMULT Vein (Routine) Timeframe: 2 Weeks Facility: [facility] - Location: [facility] Ordered By: James Davis Follow Up Appointments: 06/26/2024 Plan of Treatment: Additional sclerotherapy Patient Instructions: Polidocanol (By injection) Print Language: Cymro Discharge Date/Time: 06/17/24 11:20
--- NOTE | 2024-06-17 10:29 | VEIN_ITS ---
[address] [address] Patient Name: KRISTY MORELOS MRN: [id number] date: 1950 Sex: F Assigned Patient Location: Current Patient Location: Accession/Order Number: [id number] Exam Date: 06/17/2024 10:35 Report Date: 06/17/2024 12:44 At the request of: AVIVA RUSHING Procedure: VC INJ Sclerosing SOLMULT Vein EXAMINATION: VC INJ Sclerosing SOLMULT Vein HISTORY: I83.813 - Varicose veins of bilateral lower extremities w... The risks and benefits of the procedure were explained at length to the patient and informed written consent was obtained. The procedure was performed under sterile technique. The patient's leg was wrapped with Coban and postprocedural verbal and written instructions provided. Vernon Garland RN was present and assisted. SCLEROSANT: 2mL 0.5% Polidocanol. VEIN(S) INJECTED: 23 veins in the left leg.. VISUALIZATION: Ultrasound was not used to visualize the sclerosant. ANESTHESIA: Supercooled air. COMPLICATIONS: None. Electronically authenticated by: ABRIL HOOVER Date: 06/17/2024 12:44
--- OUTSIDE RECORDS SUMMARY | 2024-06-17 10:35 | XMS_ITS | CCD ---
Author Organization [facility] Inform ion Partnership [facility] Care Team Providers Care Production Control Expert Name Role Phone Park Carias Unavailable Unavailable Primary Care Provider UnavailGRACIE Rodriguez Attending Unavailable JOHN QUIROZ Attending Unavailable Arden Martinez DO Primary Care Provider Kenyon Boogie Unavailable ARDEN MARTINEZ Primary Care Unavailab ALLISON Bocanegra Attending Unava ilable Arden Martinez DO Primary Care Provider Allergies Allergy Classification Reported Allergen(s) Allergy Type Date of Onset Reaction(s) Facility (3 sources) Naproxen Drug Allergy 01-16-2012 [facility] Other (3 sources) Naproxen; Translations: [NAPROXEN SODIUM] Drug Allergy 01-16-2012 [facility] Medications Current Medications Medication Drug Class(es) [...] Once a day Active vit A-vit C-vit U-sziv-qwpgi r (EYE VITAMIN AND MINERALS) 7,160-113-100 pnrd-az-eutw tab (1 source) vit A-vit C-vit Z-mmfk-qtnjfm (EYE VITAMIN AND MINERALS) 7,160-113-100 gwwk-wq-dexe tab Eye Vitamin and Minerals Active Completed/Discontinued [...] Test Name Value Interpretation Reference Range Facility [facility] 02-11-2024 CNOV Office Visit ([facility] ) BETINA MORELOS ([id number]) 1950 F Date Time Provider Department 02/11/24 11:00 AM ALLISON ORO [facility] During your visit today, we recorded [...] with more than 50% of the total fpeh-bj-urmn time of the visit in counseling / [...] biliary-type cyst with associated fibrosis. . [facility] 11/26/2019 Shawn Hutchinson M.D., Ph.D. (Electronic [...] fenestration of right lobe liver cyst. SIGNATURE: nAh aBiley PA-C PATIENT NAME: Betina Morelos DATE: February 11, 2024 TIME: 11:43 AM AimeeRaissa martinezARMIN 02/11/2024 11:10 AM Signed What is the reason for your visit today? liver cyst Who is your referring physician? DO Furlong Are you having poor oral intake? NO Have you had unintentional weight loss of 15 lbs/7 Kg in the last 3-6 months? 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 Normal [facility] No Panel Informationon 07-13 [facility] ALLIED HEALTHon 11-21-2019 ALLIED HEALTH HNO ID: [id number] Author: Ema Ferrer (Chaplain) Service: Healing Service Author Type: Second [employer]acing B[facility] Type: Allied Health Filed: 11/21/2019 7:57 AM Note Text: SPIRITUAL CARE Spiritual Care Visit Record Name: Betina Morelos Date: November 21, 2019 Type of Visit: Preoperative Prayer/Visit Visit was with (pt, dtr). Ministry Provided During Visit: Spiritual Presence / Support Notes: I introduced self. Pt is Muslim. I gave her a blessing. Pt thanked for visit. Referrals: No referral made Will See: As Needed Only Follow-up Notes: Informed patient and family of Second Facing Baster availability [employer] [facility] Signature: Chaplain Rg Student To contact the Spiritual Care Department: Please call [phone] or Page the On-Call [employer]acing B[facility] at pager [phone] Thank you for the opportunity to be of service. This is an electronically created document. IF PRINTED, PLEASE DO NOT REMOVE FROM THE CHART OR MODIFY PRINTED COPY. [facility] ANES Nerissa 11-21-2019 ANES POST HNO ID: [id number] Author: Aimee Quintero I Service: Anesthesiology Author [...] DATE: November 21, 2019 TIME: 12:19 PM [facility] ANES PREOPon 11-21-2019 ANES PREOP HNO ID: [id number] Author: Aimee Quintero I Service: Anesthesiology Author [...] Encounter Medication Sig - vit A-vit C-vit E-rwcz-uzsywk (EYE VITAMIN AND MINERALS) 7,160-113-100 ebwi-mi-qlad tab Eye Vitamin and Minerals - timolol [...] November 21, 2019 TIME: 7:02 AM Normal [facility] CYTOLOGYon 11-21-2019 CYTOLOGY Specimen originated from [facility] Specimen #: [id number] Submitting Physician: ALLISON ORO SPECIMEN SUBMITTED A: [...] CYST FLUID, FINE NEEDLE ASPIRATE THIN PREP Non-Software Development Test Engineer B: ABDOMINAL FLUID (THINPREP AND CELL BLOCK) THIN PREP Non-Software Development Test Engineer, CELL BLOCK, H&E, Initial Date of Report: 11/21/2019 Date of Procedure: 11/21/2019 Date of Receipt: 11/21/2019 Submitted by: ALLISON ORO Location: [facility] Diagnostic interpretation performed at [facility], [address] [place] [address], [place] [id number]. CLIA Number: [id number] Normal [facility] HISTORY PHYSICALon 0 HISTORY PHYSICAL HNO ID: [id number] Author: Allison Oro Service: General Surgery Author [...] DATE: November 21, 2019 TIME: 7:13 AM PAGER:[phone] [facility] NURSING PROGon 11-21-2019 NURSING PROG HNO ID: [id number] Author: Yomaira DuranRn) KAILYN Montano Service: ? [...] note was completed by: Yomaira Montano RN [facility] NURSING PROG HNO ID: [id number] Author: Zarina DuranRnArgenis Brownlee RN Service: ? [...] was completed by: Hernan Brownlee RN Normal [facility] OPERATIVE NOon 11-21-2019 OPERATIVE NO HNO ID: [id number] Author: Allison Oro Service: General Surgery Author Type: Physician Type: Operative Report Filed: 11/24/2019 10:33 AM Note Text: [facility] - Operative Report BETINA MORELOS : 1950 AGE: 69. SEX: F PATIENT TYPE: I HOSP SVC: GEN LOCATION: [facility] ATTENDING PHYSICIAN: Allison Oro MD CSN NUMBER: [id number] DATE OF SURGERY/PROCEDURE: 11/21/2019 INCISION/PROCEDURE START TIME: 7:55 am INCISION CLOSE/PROCEDURE END TIME: 8:59 am PREOPERATIVE DIAGNOSIS: Symptomatic right lobe liver cyst. POSTOPERATIVE DIAGNOSIS: Symptomatic right lobe liver cyst. SURGEON: Allison Oro MD FACILITY REHAB DIRECTOR: No Additional Staff SURGERY/PROCEDURE: Laparoscopy and cyst [...] portions of the operation. 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 [...] None Electronically Signed By: Yomaira Montano RN [facility] SURGICAL PATHOLOGYon 020 SURGICAL PATHOLOGY Specimen originated from [facility] Specimen #: [id number] Submitting Physician: ALLISON ORO FINAL DIAGNOSIS Liver cyst wall, excision (A) - Simple biliary-type cyst with associated fibrosis. . [facility]/formerly [facility] 11/26/2019 Shawn Hutchinson M.D., Ph.D. (Electronic [...] thickness. No excrescences or papillations are identified. Milk Pickup Truck Driver sections are submitted in seven cassettes. [place] 11/21/2019 Gross examination performed at [facility], [address] [place] [address] Date of Report: 11/27/2019 Date of Procedure: 11/21/2019 Date of Receipt: 11/21/2019 Submitted by: ALLISON ORO Location: [place] Diagnostic interpretation performed at [place] [address]. [place] Number: [id number] Normal [facility] Wound Culture/Stainon 2019 Wound Culture/Stain Sp. Request/Comment: - Eswab Smear Result - No organisms seen No Polymorphonuclear Leukocytes Culture Result - No growth 3 days [facility] Comment on above: Performed By: #### W CUL ####[address] [phone] Wound Culture/Stain Sp. Request/Comment: - Eswab Smear Result - No organisms seen No Polymorphonuclear Leukocytes Culture Result - No growth 3 days [facility] Comment on above: Performed By: #### W CUL ####[address] [phone] Confirm Blood Typeon 020 ABO/RH(D) Positive [facility] [id number] 11-18-2019 ECG01 NAME : RUPAL MORELOS PID : [id number] : 1950 Gender : Female Race : ORD : [id number] Procedure Date : Nov 18 2019 13:19:19 [...] ms QTC Calculation(Bazett) : 412 ms P [place] : -2 degrees R [place] : 51 degrees T [place] : -1 degrees Test Reason : Location : 49 : [place] Overread By : DARON NAVARRO M.D. Edited By : DARON NAVARRO M.D. Referred By : BARBIE BURTON Acquired by : AMIRA WALLACE [facility] HOSPon 09-18-2019 HOSP Patient:Pola Morelos M MRN: Height:5' 6.5 [patient reported[(1.689 m) Weight:152 lb (68.947 kg) Outpatient Medications as of 11/21/19: vit A-vit C-vit M-gqll-otgwgb (EYE VITAMIN AND MINERALS) 7,160-113-100 kugq-we-kbep tab timolol maleate (TIMOPTIC) 0.5 % ophthalmic [...] entered within the past 30 days Normal [facility] Reminderson 04-15-2019 Reminders - From: [facility] To: [facility] - Reminders/Recalls; Sent: 12/04/2018 12:26:41 EDT Show up: 03/04/2019 12:26:00 EDT Subject: 2018 RECALL Due Date/Time: 04/20/2019 12:26:00 EST Reminder/Recall Colonoscopy recall [address] Azevedo Due 04/20/19 First Recall Letter Sent Clp Second Recall Letter [facility] Vital Signs Date Time Vital Sign Value Performing Clinician Facility 02-11-2024 11:090400 Body height 168.9 cm Allison Oro MD Work Phone: [facility] 02-11-2024 11:09-0400 Body mass index (BMI) [Ratio] 23.08 kg/m2 Allison Oro MD Work Phone: [facility] 02-11-2024 11:09-0400 Body temperature 96.91 [degF] Allison Oro MD Work Phone: [facility] 02-11-2024 11:09-0400 Body weight 65.86 kg Allison Oro MD Work Phone: [facility] 02-11-2024 11:09-0400 Diastolic blood pressure 68 mm[Hg] Allison Oro MD Work Phone: [facility] 02-11-2024 11:09-0400 Heart rate 83 /min Allison Oro MD Work Phone: [facility] 02-11-2024 11:09-0400 Systolic blood pressure 130 mm[Hg] Allison Oro MD Work Phone: [facility] 05-09-2023 12:40-0500 Body height 165.1 cm Park Carias Other [facility] Other 05-09-2023 12:40-0500 Body mass index (BMI) [Ratio] 22.46 kg/m2 Park Bahenamond Other [facility] Other 05-09-2023 12:40-0500 Body temperature 98 [degF] Park Bahenamond Other [facility] Other 05-09-2023 12:40-0500 Body weight 61.24 kg Park Bahenamond Other [facility] Other 05-09-2023 12:40-0500 Diastolic blood pressure 65 mm[Hg] Park Bahenamond Other [facility] Other 05-09-2023 12:40-0500 Respiratory rate 18 /min Park Bahenamond Other [facility] Other 05-09-2023 12:40-0500 SaO2% (BldA) [Mass fraction] 98 % Park Bahenamond Other [facility] Other 05-09-2023 12:40-0500 Systolic blood pressure 133 mm[Hg] Park Aretha Other [facility] [employer] Other Encounters Encounter Date Encounter Type Care Provider Facility Start: 06-06-2024 End: 06-06-2024 Orders Only Arden Erika Martinez DO Work Phone: [facility] Comment on above: Abnormal mammogram ( Primary Dx) Start: 02-11-2024 End: 02-11-2024 ambulatory ARDEN MARTINEZ Facility:[facility] Start: 02-11-2024 End: 02-11-2024 Patient [...] 05-09-2023 End: 05-09-2023 ambulatory Park Carias Other [facility] Other Start: 05-09-2023 Office outpatient ne w 20 minutes Park Carias [facility] Procedures Date Procedure Procedure [...] Td Vaccines (2 - Td or Tdap) [facility] Start: 02-15-2026 Urine microalbumin profile DTaP,Tdap,Td Vaccine (2 - Td or Tdap) [facility] Start: 12-26-2024 Depression Screening Depression Scre ening [facility] Start: 12-26-2024 Fall Risk Screening Fall Risk Screen ing [facility] Start: 12-26-2024 Tobacco Screening Tobacco Screening [facility] Start: 07-14-2024 End: 07-14-2024 Patient encounter procedure 07/14/2024 10:50 AM EST Office Visit [facility] [address] [place] [address] Gracie Luna PA [address] [place], [place] [id number] [facility] Start: 06-06-2024 End: 06-06-2025 MG Breast duct - left Views W contrast intra duct Mammography diagnostic unilateral left with CAD Imaging Routine Abnormal mammogram Expected: 06/06/2024, Expires: 06/06/2025 [employer] Work Phone: Comment on above: Expected: 06/06/2024 , Expires: 06/06/2025 Start: 06-06-2024 End: 06-06-2025 US Breast - left limited Ultrasound breast limited left Imaging Routine Abnormal mammogram Expected: 06/06/2024, Expires: 06/06/2025 [facility] Comment on above: Expected: 06/06/2024 , Expires: 06/06/2025 Start: 02-03-2024 Covid-19 Vaccine ( season) Covid-19 Vaccine ( season) [facility] Start: 02-03-2024 Influenza vaccination C [facility] Start: 07-13-2023 End: 07-13-2023 Patient encounter procedure 07/13/2023 11:50 AM EST Office Visit [facility] [address] [place] [address] Gracie Luna PA [address] [place] [address] Arrived [facility] Comment on above: Arrived Start: 06-04-2023 Advance Directive Discussion Advance Directive Discussion [facility] Start: 02-02-2023 Influenza vaccination Influenza Vacc ine (#1) [facility] Start: 09-22-2020 COVID-19 Vaccine (3 - Moderna risk series) COVID-19 Vaccine (3 - Moderna risk series) [facility] Start: 2013 Pneumococcal Vaccine : 65+ (1 of 1 - PCV) Pneumococcal Vaccine: 65+ (1 of 1 - PCV) [facility] Start: 2013 Pneumococcal Vaccine : 65+ Years (1 - PCV) Pneumococcal Vaccine: 65+ Years (1 - PCV) [facility] Start: 2008 RSV Vaccine (1 - 1-d ose 60+ series) RSV Vaccine (1 - 1-dose 60+ series) [facility] Start: 1993 Diabetes Screening Diabetes Screenin g [facility] Start: 1993 Lipid panel Lipid Screening [facility] Start: 1993 Screening for malign ant neoplasm of colon [facility] Start: 1966 Anxiety Screening Anxiety Screening [facility] Start: 1966 Depression Screening Depression Scre [facility] Start: 1966 Hepatitis C screening Hepatitis C Sc faustinoning [facility] Start: 1950 Medicare Annual Wellness Visit Medicare Annual Wellness Visit [facility] Start: 1950 Screening for malign ant neoplasm of colon [facility] Immunizations Immunization Date Immunization Notes Care Provider Matthias ellis 08-08-2019 zoster vaccine recombinant Arden Furlong DO Work Phone: [facility] 05-09-2019 zoster vaccine recombinant Arden Furlong DO Work Phone: [facility] 02-16-2016 tetanus toxoid, redu giorgio diphtheria toxoid, and acellular pertussis vaccine, adsorbed Arden Furlong DO Work Phone: [facility] Payers Date Payer Category Payer Commercial Managed [place] [address] [id number] 2020 Private Health Insurance [id number] 2020 Unknown [id number] 2018 Unknown [id number] 2013 Medicare [id number] 2013 Medicare [id number] 1950 Unknown [id number] 1950 Unknown [id number] Social History Date Type Detail Facility Unknown if ever smoked [facility] Other Start: 07-13-2023 End: 12-27-2023 Sex Assigned At [facility] consumption [facility] Start: 1950 Sex Assigned At Female [facility] Start: 07-12-2023 Gender identity Identifies as female gender (finding) [facility] Start: 07-13-2023 End: 12-27-2023 Tobacco smoking status KYIS Never smoked tobacco [facility] Start: 07-13-2023 End: 12-27-2023 Tobacco use and exposure Smokeless tobacco non-user [facility] Start: 07-13-2023 End: 12-27-2023 History of Social function [facility] Start: 02-11-2024 Alcoholic beverage intake Current drinker of alcohol (finding) [facility] How often to you hav e a drink containing alcohol? Monthly or less [facility] Average Number of Drinks Not on file [facility] Start: 11-17-2019 Alcohol Comment less than 1 drink per week [facility] Start: 1950 Sex assigned at Not on file [facility] Start: 03-27-2024 Alcoholic beverage intake Not Asked [facility] Has the [employer], or [employer] threatened to shut off services in your home in past 12Mo No [facility] [employer] Do you belong to any clubs or organizations such as jehovah's witness groups, unions, fraternal or athletic groups, or school groups? Yes [facility] Are you now , , , , never or living with a partner? [facility] How often to you hav e a drink containing alcohol? 2-4 times a month [facility] How many standard dr inks containing alcohol do you have on a typical day? 1 or 2 [facility] How often do you hav e 6 or more drinks on 1 occasion? Never [facility] [employer] Do you feel stress - tense, restless, nervous, or anxious, or unable to sleep at night because your mind is troubled all the time - these days [OSQ] Not at all [facility] Start: 12-27-2023 Alcohol Comment social [facility] Start: 11-21-2023 Sex Female (finding) [facility] Clinical Notes 05-09-2023 to 02-11-2024 [...] 3-6 months? NO Bowels: regular patient declined cloth winder Raissa Shook LPN [facility] 02-11-2024 Nurse Note What is the reason for your visit today? liver cyst Who is your referring physician? DO Juan Are you having poor oral intake? NO Have you had unintentional weight loss of 15 lbs/7 Kg in the last 3-6 months? NO Bowels: regular patient declined cloth winder Raissa Shook LPN documented in this encounter [facility] 02-11-2024 History of Present illness [...] with more than 50% of the total kkwa-jn-lfic time of the visit in counseling / [...] biliary-type cyst with associated fibrosis. . [facility] 11/26/2019 Shawn Hutchinson M.D., Ph.D. (Electronic [...] TIME: 11:43 AM documented in this encounter [facility] 02-11-2024 Note HNO ID: [id number] Author: ALLISON ORO MD Service: ? Author [...] with more than 50% of the total jzpv-rc-pimg time of the visit in counseling / [...] biliary-type cyst with associated fibrosis. . [facility] 11/26/2019 Shawn Hutchinson M.D., Ph.D. (Electronic [...] DATE: February 11, 2024 TIME: 11:43 AM [facility] 07-13-2023 History of Present illness Narrative Skin [...] Examined Right arm Examined Patient wearing nail sami, Denies dark streaks on toenails Left arm [...] limited to risks of scarring, darker or convention worker pigmentary changes, recurrence, incomplete removal and infection. [...] limited to risks of scarring, darker or convention worker pigmentary changes, recurrence, incomplete removal and infection. [...] Visit: 1 year documented in this encounter [facility] 05-09-2023 Evaluation note Encounter Date Diagnosis [...] no improvement in 2 to 3 days [facility] [employer] 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 Abnormal mammogram- Primary Abnormal mammogram, unspecified [facility] Learning[facility] general Narrative - Reported* Type Description Date Medical History HYPERLIPIDEMIA Medical History MRI abdomen Surgical History SINUS SX 1999 [facility] [facility] Other InstructionsNot on filedocumented in this encounter [facility] Summary Purpose Family History No Family History Records FoundNo Family History Records FoundNo Family History Records FoundNo Family History Records Found Advance Directives No Advanced Directives Records FoundNo Advanced Directives Records FoundNo Advanced Directives Records FoundNo Advanced Directives Records Found Procedure Findings Note HNO ID: [id number] Author: Eleazar Martin Service: General Surgery Author Type: Resident Type: Brief Op Note Filed: 11/21/2019 9:09 AM Note Text: GENERAL SURGERY BRIEF OPERATIVE NOTE Betina Morelos [id number] LOG ID: [id number] Surgery/Procedure Date: 11/21/2019 Incision/Procedure Start Time: 7:55 AM Incision Close/Procedure End Time: 8:59 AM Surgeon(s)/Proceduralist(s) and Executive Chef Assistant(s): Surgeon(s) and Role: * Allison Oro - [...] CREATED AUTHOR 04/15/2019 Anam De La Torre [facility] DATE CREATED AUTHOR AUTHOR'S ORGANIZ ATION 12/24/2019 [facility] DATE CREATED AUTHOR AUTHOR'S ORGANIZ ATION 10/20/2023 [facility] DATE CREATED AUTHOR AUTHOR'S ORGANIZ ATION 02/12/2024 [facility] REASON FOR VISIT (unrecogniz ed section and content) Reason Comments Skin Check Reason Comments New Patient Source Comments (unrecognize d section and content) In the event this informatio n is protected by the Federal Confidentiality of Alcohol and Drug Abuse Patient Records regulations: The Federal rules restrict any use of the information to criminally investigate or prosecute any alcohol or drug abuse patient.[facility] Care Teams (unrecognized sec tion and content) Production Control Expert Relationship Specialty Start Date End Date Arden Martinez DO [address] [place] [address] PCP - General 12/23/07 Kenyon Tamayo [address] [address] Referring Gastroenterology 09/04/19 Production Control Expert Relationship Specialty Start Date End Date Arden Martinez DO [address] [facility] [place] [address] PCP - General Family Medicine 11/21/23 FOR [...] BE BASED ON THE PRIMARY CLINICAL RECORDS. [facility] [employer] [facility]. provides no warranty or guarantee of the accuracy or completeness of information in this document.
[2024-06-17 11:17] VITALS: BP 112/62; PULSE 73; O2SAT 98
== END 2024-06-17 11:20 | disposition home or self-care (01) ==
LOC: VC 10:28
PROVIDERS: PCP Family Medicine; Visit Provider Radiology Diagnostic Radiology
DX: I83.813 Varicose veins of bilateral lower extremities with pain (principal)
CPT/HCPCS: 36471

== ENCOUNTER 2024-06-26 12:55 | Outpatient (OUT) | payer MEDICARE, OTHER, SELFPAY ==
--- NOTE | 2024-06-25 09:17 | V.VEINS.HP ---
Vital Signs 06/26/24 13:42 BP 118/62 BP Location Right Brachial BP Position Sitting BP Cuff Size Adult BP Source Manual Cuff Respiration 16 Pulse 62 Pulse Source Monitor Pulse Oximetry (%) 98 Oxygen Delivery Method Room Air Varicose Veins Patient in today for sclerotherapy James Castillo MD personally performed the services described in this documentation, as scribed by Vernon Garland RN in my presence and it is both accurate and complete. Vernon Castillo RN, am scribing for, and in the presence of, Dr. James Davis and in the presence of the patient. thigh: bilateral (symptoms equally bilateral), knee: bilateral, calf: bilateral, ankle: bilateral and ross: bilateral aching, cramping, dull and tender 2 20 years Worsened in recent months: Yes standing analgesics, elevating extremities, compression stockings and exercise Reports muscle spasms of leg, heaviness, limb pain, edema and leg edema History of lower extremity trauma: No Superficial thrombophlebitis: No Family history of varicose veins: yes Has patient had previous lower extremity venous surgery: No Patient has previously received the following treatment(s) for lower extremity varicose veins: Reports none Does patient have a history of : yes Does patient intend to have future pregnancies: no Has patient had lower extremity venous scan with relux testing: No Support hose used: Yes Problems walking or doing physical activity: Yes How does it affect you: often has to stop and rest and elevate legs/feet Do you walk much: Yes Do you stand much: Yes Review of Systems ROS Narrative James Castillo MD personally performed the services described in this documentation, as scribed by Vernon Garland RN in my presence and it is both accurate and complete. Vernon Castillo RN, am scribing for, and in the presence of, Dr. James Davis and in the presence of the patient. Status of ROS 10 or more systems reviewed and unremarkable except as noted in history and below Cardiovascular Reports: edema Integumentary/Breast Reports: skin tenderness, skin swelling and changes in skin color Neurological Reports: numbness in extremities and weakness in extremities [facility] Medical History (Updated 06/25/24 @ 09:18 by Vernon Garland) Varicose veins of bilateral lower extremities with pain ?I83.813 - Varicose veins of bilateral lower extremities with pain (ICD-10) Phlebitis and thrombophlebitis of superficial vessels of left lower extremity ?I80.02 - Phlebitis and thrombophlebitis of superficial vessels of left lower extremity (ICD-10) Phlebitis and thrombophlebitis of superficial vessels of right lower extremity ?I80.01 - Phlebitis and thrombophlebitis of superficial vessels of right lower extremity (ICD-10) Foreign object left in body during procedure ?T81.509A - Unspecified complication of foreign body accidentally left in body following unspecified procedure, initial encounter (ICD-10) Cataract ?H26.9 - Unspecified cataract (ICD-10) Glaucoma ?H40.9 - Unspecified glaucoma (ICD-10) Peripheral neuropathy ?G62.9 - Polyneuropathy, unspecified (ICD-10) Pain due to varicose veins of both lower extremities ?I83.813 - Varicose veins of bilateral lower extremities with pain (ICD-10) Surgical History (Updated 06/26/24 @ 13:43 by Vernon Garland) S/P sclerotherapy of varicose veins ?Z98.890 - Other specified postprocedural states (ICD-10) ?Z86.79 - Personal history of other diseases of the circulatory system (ICD-10) S/P sclerotherapy of varicose veins ?Z98.890 - Other specified postprocedural states (ICD-10) ?Z86.79 - Personal history of other diseases of the circulatory system (ICD-10) S/P sclerotherapy of varicose veins ?Z98.890 - Other specified postprocedural states (ICD-10) ?Z86.79 - Personal history of other diseases of the circulatory system (ICD-10) S/P sclerotherapy of varicose veins ?Z98.890 - Other specified postprocedural states (ICD-10) ?Z86.79 - Personal history of other diseases of the circulatory system (ICD-10) S/P sclerotherapy of varicose veins ?Z98.890 - Other specified postprocedural states (ICD-10) ?Z86.79 - Personal history of other diseases of the circulatory system (ICD-10) Status post laser ablation of incompetent vein ?Z98.890 - Other specified postprocedural states (ICD-10) Status post laser ablation of incompetent vein ?Z98.890 - Other specified postprocedural states (ICD-10) Social History (Updated 03/14/24 @ 08:42 by Vernon Garland) Within the past year, how often did you have a drink containing alcohol: monthly or less Smoking status: Never smoker Non-prescribed substance use: denies use Meds Home Medications and Allergies Allergies Allergy/AdvReac Type Severity Reaction Status Date / Time naproxen (From Aleve) Allergy Intermediate Hives Verified 03/14/24 08:43 Exam Narrative Exam Narrative: James Castillo MD personally performed the services described in this documentation, as scribed by Vernon Garland RN in my presence and it is both accurate and complete. IVernon RN, am scribing for, and in the presence of, Dr. James Davis and in the presence of the patient. Constitutional Documenting provider has reviewed patient's vital signs: yes Common normals: oriented x3 Cardio Peripheral pulses: posterior tibial pulses present and dorsalis pedis pulses present Extremity Common normals: normal capillary refill General: edema Right lower extremity: lower leg Right lower leg: inspection and palpation Left lower extremity: lower leg Left lower leg: inspection and palpation Neuro Common normals: oriented x3 Assessment and Plan Assessment and Plan (1) Varicose veins of bilateral lower extremities with pain: Plan Plan of care complete at this time. Patient to f/u in future as necessary. James Castillo MD personally performed the services described in this documentation, as scribed by Vernon Garland RN in my presence and it is both accurate and complete. Vernon Castillo RN, am scribing for, and in the presence of, Dr. James Davis and in the presence of the patient. Procedures Procedure Instructions Procedures sclerotherapy: Risks and benefits of the procedure were discussed at length and informed written consent was obtained.? Time-out procedure was performed and the correct patient and procedure were confirmed.? Staff present during time-out: Vernon Garland RN and James Davis MD.? Patient prepped and procedure performed in usual sterile fashion. Injections performed by Dr. Davis and Vernon Garland RN Sclerosing Agent:?? 4cc 0.5% Polidocanol Site Injected: right leg Number of Injections: 24 Anesthesia: Supercooled air The patient tolerated the procedure well without complication.? Hemostasis was obtained and thigh-high compression stocking was applied by patient.? Instructed patient to wear stocking for at least 96 hours and sleep with it and only remove for showering.? Will wear stocking for 2 weeks.? The patient verbalizes understanding and states they will comply.? Patient was given post-procedure instructions. Patient was discharged in good condition.? Plan of care complete. Patient to f/u in future as necessary. IJames MD personally performed the services described in this documentation, as scribed by Vernon Garland RN in my presence and it is both accurate and complete. I, Vernon Garland RN, am scribing for, and in the presence of, Dr. James Davis and in the presence of the patient.
--- NOTE | 2024-06-25 09:18 | W.VEIN ---
Discharge Plan Discharge Disposition: Home, Self-Care Plan of Treatment: Plan of care complete at this time. Patient to f/u in future as necessary. Patient Instructions: Polidocanol (By injection) Print Language: Bengali Discharge Date/Time: 06/26/24 13:45
--- NOTE | 2024-06-26 12:56 | VEIN_ITS ---
[address] [address] Patient Name: KRISTY MORELOS MRN: [id number] date: 1950 Sex: F Assigned Patient Location: Current Patient Location: Accession/Order Number: [id number] Exam Date: 06/26/2024 12:56 Report Date: 06/26/2024 14:19 At the request of: AVIVA RUSHING Procedure: VC INJ Sclerosing SOLMULT Vein EXAMINATION: VC INJ Sclerosing SOLMULT Vein HISTORY: I83.813 COMPARISON: No relevant comparison available. TECHNIQUE: The risks and benefits of the procedure were explained at length to the patient and informed written consent was obtained. Vernon Garland was present and assisted. The procedure was performed under sterile technique. The patient's leg was wrapped with Coban and postprocedural verbal and written instructions provided. SCLEROSANT: 4 cc, 0.5% polidocanol VEIN(S) INJECTED: 24 veins in the right leg VISUALIZATION: Ultrasound was not used to visualize the sclerosant ANESTHESIA: Supercooled air COMPLICATIONS: None VEIN/VC INJ Sclerosing SOLMULT Vein IMPRESSION: Technically successful sclerotherapy as described Electronically authenticated by: AVIVA RUSHING Date: 06/26/2024 14:19
[2024-06-26 13:42] VITALS: BP 118/62; PULSE 62; O2SAT 98
== END 2024-06-26 13:45 | disposition home or self-care (01) ==
LOC: VC 12:55
PROVIDERS: PCP Family Medicine; Visit Provider Radiology Diagnostic Radiology
DX: I83.813 Varicose veins of bilateral lower extremities with pain (principal)
CPT/HCPCS: 36471